=== PATIENT | male | born 1970 | race Caucasian/White ===

== ENCOUNTER 2017-10-30 16:27 | Inpatient (IN) | payer OTHER ==
[2017-10-30] MEDS ORDERED: ACETAMINOPHEN 325 MG TABLET (FP) PO ONE (17:06)
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
[2017-10-30] MEDS ORDERED: ACETAMINOPHEN 325 MG TABLET (FP) ONE (17:36)
[2017-10-30 17:48] LABS: BASO % 0.2 % (0-2.0); EOS % 0.1 % (0-4.5); HEMATOCRIT 34.3 % (35.4-49); HEMOGLOBIN 11.3 GM/dL (11.7-16.9); LYMPH % 13.7 % (8-40); MCH 26.5 pg (25.7-33.7); MEAN CELL VOLUME 80.4 fl (80-96); MEAN PLT VOLUME 8.3 fl (7.5-11.1); MONO % 10.4 % (3.8-10.2); NEUT % 75.6 % (42.8-82.8); PLATELET COUNT 456 K/MM3 (134-434); RBC 4.26 M/mm3 (4.00-5.60); RDW 13.6 % (11.9-15.9); WHITE BLOOD COUNT 17.9 K/mm3 (4.0-10.0)
[2017-10-30 18:07] LABS: ALBUMIN 3.7 g/dl (3.4-5.0); ANION GAP 9 (8-16); BLOOD UREA NITROGEN 23 mg/dL (7-18); CALCIUM 9.4 mg/dL (8.5-10.1); CHLORIDE 102 mmol/L (98-107); CO2 27 mmol/L (21-32); CREATININE 1.7 mg/dL (0.7-1.3); GLUCOSE,RANDOM 172 mg/dL (74-106); POTASSIUM 4.4 mmol/L (3.5-5.1); SGOT/AST 8 U/L (15-37); SGPT/ALT 15 U/L (12-78); SODIUM 138 mmol/L (136-145)
[2017-10-30 18:09] LABS: ALK PHOS 91 U/L (45-117); BILIRUBIN,TOTAL 0.4 mg/dL (0.2-1.0)
[2017-10-30] MEDS ORDERED: VANCOMYCIN 1,000 MG in DEXTROSE 5%-WATER - 250 ML IVPB ONE (18:43)
[2017-10-30] MEDS ORDERED: PIPERACILLIN/TAZOB 4.5 GM 4.5 GM in DEXTROSE 5%-WATER 100 ML IVPB ONE (18:43)
[2017-10-30] MEDS ORDERED: SODIUM CHLORIDE 0.9% 1000 ML INFUS.BAG IV ONE (18:44)
[2017-10-30] MEDS ORDERED: PIPERACILLIN/TAZOB 4.5 GM 4.5 GM/100 ML BAG IVPB ONE (19:04)
[2017-10-30] MEDS ORDERED: VANCOMYCIN 1 GRAM (PRE-DOCKED) 1,000 MG/250 ML BAG IVPB ONE (19:04)
[2017-10-30 19:52] LABS: URINE APPEARANCE SLCLOUDY; URINE BILIRUBIN NEGATIVE (<2.0 mg/dL); URINE COLOR DKYELLOW; URINE GLUCOSE (UA) 1+ (NEGATIVE); URINE KETONE TRACE (NEGATIVE); URINE LEUK ESTERASE NEGATIVE (NEGATIVE); URINE NITRITE NEGATIVE (NEGATIVE)
[2017-10-30 19:54] LABS: URINE PROTEIN 1+ (NEGATIVE)
[2017-10-30 19:57] LABS: EPI CELLS RARE /HPF (FEW); GRANULAR CASTS 6 /lpf; URINE HYALINE CAST 2 /lpf; URINE MUCUS FEW
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
[2017-10-31] MEDS: SODIUM CHLORIDE 1,000 ML IV SCH ×4 (00:45→18:03)
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
[2017-10-31] MEDS: PIPERACILLIN/TAZOB 3.375 GM 3.375 GM in DEXTROSE 5%-WATER - 50 ML IVPB SCH ×3 (02:46→18:04)
[2017-10-31] MEDS ORDERED: PIPERACILLIN/TAZOB 3.375 GM 3.375 GM/50 ML BAG IVPB ONE (02:47)
[2017-10-31] MEDS ORDERED: ACETAMINOPHEN 325 MG TABLET (FP) ONE (02:49)
[2017-10-31] MEDS: ACETAMINOPHEN 325 MG TABLET (FP) PO PRN ×3 (02:54→20:55)
[2017-10-31] MEDS: HEPARIN NA (PORCINE) 5,000 UNITS/ML 1ML VIAL SQ SCH ×3 (07:22→22:19)
[2017-10-31 07:42] VITALS: BMI 27.4
[2017-10-31 07:49] LABS: BASO % 0.3 % (0-2.0); EOS % 0.4 % (0-4.5); HEMATOCRIT 30.4 % (35.4-49); HEMOGLOBIN 10.2 GM/dL (11.7-16.9); LYMPH % 21.1 % (8-40); MCH 26.7 pg (25.7-33.7); MCHC 33.6 g/dl (32.0-35.9); MEAN CELL VOLUME 79.3 fl (80-96); MEAN PLT VOLUME 7.7 fl (7.5-11.1); MONO % 11.9 % (3.8-10.2); NEUT % 66.3 % (42.8-82.8); PLATELET COUNT 350 K/MM3 (134-434); RBC 3.83 M/mm3 (4.00-5.60); RDW 13.2 % (11.9-15.9); WHITE BLOOD COUNT 11.8 K/mm3 (4.0-10.0)
--- NOTE | 2017-10-31 08:13 | PN ---
Physical Exam: SUBJECTIVE: Patient seen and examined. No more chills. No cough/SOB. Had some dysuria improved on AB. OBJECTIVE: Vital Signs Period Temp Pulse Resp BP Sys/Coffey Pulse Ox Last 24 Hr 98.0 F-99.0 F 77-113 18-20 131-149/71-79 97-99 GENERAL: The patient is awake, alert, and fully oriented, in no acute distress. LUNGS: Breath sounds equal, clear to auscultation bilaterally HEART: Regular rate and rhythm, S1, S2 ABDOMEN: Soft, nontender, nondistended, normoactive bowel sounds EXTREMITIES: R foot wound recently dressed, clean and dry. NEUROLOGICAL: AAOx 3, Able to move all limbs, normal speech Laboratory Results - last 24 hr 10/30/17 10/30/17 10/30/17 17:15 17:25 17:25 WBC 17.9 H RBC 4.26 Hgb 11.3 L Hct 34.3 L MCV 80.4 MCH 26.5 MCHC 33.0 RDW 13.6 Plt Count 456 H D MPV 8.3 Absolute Neuts (auto) 13.5 Neutrophils % 75.6 D Lymphocytes % 13.7 D Monocytes % 10.4 H Eosinophils % 0.1 D Basophils % 0.2 Nucleated RBC % 0 ESR Sodium 138 Potassium 4.4 Chloride 102 Carbon Dioxide 27 Anion Gap 9 BUN 23 H Creatinine 1.7 H Creat Clearance w eGFR 43.61 POC Glucometer Random Glucose 172 H Lactic Acid Calcium 9.4 Total Bilirubin 0.4 AST 8 L ALT 15 Alkaline Phosphatase 91 C-Reactive Protein Total Protein 8.0 Albumin 3.7 Urine Color Dkyellow Urine Appearance Slcloudy Urine pH 5.0 Ur Specific White 1.019 Urine Protein 1+ H Urine Glucose (UA) 1+ H Urine Ketones Trace H Urine Blood Negative Urine Nitrite Negative Urine Bilirubin Negative Urine Urobilinogen 2.0 Ur Leukocyte Esterase Negative Urine WBC (Auto) 3 Urine RBC (Auto) 4 Ur Epithelial Cells Rare Hyaline Casts 2 Granular Casts 6 Urine Mucus Few 10/30/17 10/30/17 10/30/17 17:25 17:25 21:15 WBC RBC Hgb Hct MCV MCH MCHC RDW Plt Count MPV Absolute Neuts (auto) Neutrophils % Lymphocytes % Monocytes % Eosinophils % Basophils % Nucleated RBC % ESR Sodium Potassium Chloride Carbon Dioxide Anion Gap BUN Creatinine Creat Clearance w eGFR POC Glucometer Random Glucose Lactic Acid 2.0 1.4 Calcium Total Bilirubin AST ALT Alkaline Phosphatase C-Reactive Protein 14.3 H Total Protein Albumin Urine Color Urine Appearance Urine pH Ur Specific White Urine Protein Urine Glucose (UA) Urine Ketones Urine Blood Urine Nitrite Urine Bilirubin Urine Urobilinogen Ur Leukocyte Esterase Urine WBC (Auto) Urine RBC (Auto) Ur Epithelial Cells Hyaline Casts Granular Casts Urine Mucus 10/31/17 10/31/17 10/31/17 03:00 03:17 07:10 WBC 11.8 H RBC 3.83 L Hgb 10.2 L Hct 30.4 L MCV 79.3 L MCH 26.7 MCHC 33.6 RDW 13.2 Plt Count 350 D MPV 7.7 Absolute Neuts (auto) 7.8 Neutrophils % 66.3 Lymphocytes % 21.1 D Monocytes % 11.9 H Eosinophils % 0.4 D Basophils % 0.3 Nucleated RBC % 0 ESR 82 H Sodium Potassium Chloride Carbon Dioxide Anion Gap BUN Creatinine Creat Clearance w eGFR POC Glucometer [phone] Random Glucose Lactic Acid Calcium Total Bilirubin AST ALT Alkaline Phosphatase C-Reactive Protein Total Protein Albumin Urine Color Urine Appearance Urine pH Ur Specific White Urine Protein Urine Glucose (UA) Urine Ketones Urine Blood Urine Nitrite Urine Bilirubin Urine Urobilinogen Ur Leukocyte Esterase Urine WBC (Auto) Urine RBC (Auto) Ur Epithelial Cells Hyaline Casts Granular Casts Urine Mucus Active Medications Generic Name Dose Route Start Last Admin Trade Name Freq PRN Reason Stop Dose Admin Acetaminophen 650 mg 10/31/17 00:07 10/31/17 02:54 Tylenol - PO 650 mg Q4H PRN Administration MODERATE PAIN Aspirin 81 mg 10/31/17 10:00 Asa - PO DAILY ARY Atorvastatin Calcium 10 mg 10/31/17 22:00 Lipitor - PO HS ARY Heparin Sodium (Porcine) 5,000 unit 10/31/17 06:00 10/31/17 07:22 Heparin - SQ 5,000 unit TID ARY Administration Sodium Chloride 1,000 mls @ 125 mls/hr 10/31/17 00:15 10/31/17 07:22 Normal Saline - IV 125 mls/hr ASDIR ARY Administration Piperacillin Sod/Tazobactam 50 mls @ 100 mls/hr 10/31/17 02:45 10/31/17 02:46 Sod 3.375 gm/ Dextrose IVPB 10/31/17 10:29 100 mls/hr Q8H-IV ARY Administration Protocol Piperacillin Sod/Tazobactam 50 mls @ 100 mls/hr 10/31/17 18:00 Sod 3.375 gm/ Dextrose IVPB Q8H-IV ARY Protocol Insulin Aspart 1 vial 10/31/17 07:20 Novolog Vial Sliding Scale - SQ ACHS ARY Protocol Lisinopril 10 mg 10/31/17 10:00 Prinivil PO DAILY ARY Senna 1 tab 10/31/17 22:00 Senna - PO HS ARY Microbiology 10/30/17 17:25 Blood - Peripheral Venous Blood Culture - Preliminary NO GROWTH OBTAINED AFTER 48 HOURS, INCUBATION TO CONTINUE FOR 3 DAYS. 10/30/17 17:15 Blood - Peripheral Venous Blood Culture - Preliminary NO GROWTH OBTAINED AFTER 48 HOURS, INCUBATION TO CONTINUE FOR 3 DAYS. 10/30/17 17:15 Urine - Urine Clean Catch Urine Culture - Final NO GROWTH OBTAINED Abd US 10/31/17: R kidney 11.8, L kidney 12.5 and appear unremarkable ASSESSMENT/PLAN: The patient is a 47 year old male with a PMH of DMII, HTN, hyperlipidemia, diabetic wound in the right foot for the past 3 months, that presented to Emergency Room after was found to have fever and chills in wound care clinic earlier today. He is admitted for sepsis due to diabetic wound in his right foot. Sepsis due to diabetic wound in right foot: -Fevers resolved, White count trending down, lactic acid resolved - Pt presented with tachycardia 100, chills, WBC 17.9, associated with open diabetic wound -sepsis protocol started in ED -Cont Vanco/Zosyn(10/30/17) day 2 -ID consulted- Dr Benavidez apprec rec -Wound culture -pending -blood cutures -negative -continue NS @125 cc/hr- pending adequae PO ingestion -Tylenol 650 mg Q4h for pain control and fever -will f/u Dr Torres recommendations- for debridement and likely bone biopsy tomorrow -wound care -CRP-14.3 and ESR -elevated 82 -MRI will not be necessary to R/O Osteomyelitis with bone biopsy ANDREINA: -Likely due to dehydration, poor oral intake -he was told in the past that his kidney function was affected but it resolved and 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 -today Cr 1.7, not known baseline, BUN 23 -US kidney ordered- N kidneys -avoid nephrotoxic substance -Nephro consulted - Cont iv fluids -FENa-1.8% suggestive of intrinsic renal disease (may not be accurate as pt received hydration prior ) -Monitor Anemia: - Hgb trending down -denies bleeding, melena -Presented with Hgb 11.3, HCT 34.3, microcytic anemia -iron studies ordered-High ferritin, low TIBC-could indicate ACD -FOBT --ve HTN: -continue Lisinopril 10 mg daily -controlled DMII: -diagnosed 20 years ago, last HgA1C 10.5 in the beginning of October -at home on Novolog 8 units before meals and Lantus 28 units HS, Metformin and Trulicity -for now we will only continue ISS, consider resuming home insulin when he improves -diabetic diet -Registered Mail Clerk consultation -BGM ACHS DVT PPX: -Heparin sq -scds F/E/N: NS/no changes/Diabetic Dispo: Med surg Visit type - Emergency Visit Emergency Visit: Yes ED Registration Date: 10/30/17 Care time: The patient presented to the Emergency Department on the above date and was hospitalized for further evaluation of their emergent condition. - New Patient This patient is new to me today: Yes Date on this admission: 10/31/17 - Critical Care Critical Care patient: No - Discharge Referral Referred to [facility] No
[2017-10-31 09:23] LABS: ALBUMIN 2.9 g/dl (3.4-5.0); ALK PHOS 80 U/L (45-117); BILIRUBIN,TOTAL 0.4 mg/dL (0.2-1.0); BLOOD UREA NITROGEN 16 mg/dL (7-18); CALCIUM 8.8 mg/dL (8.5-10.1); CHLORIDE 104 mmol/L (98-107); CREATININE 1.1 mg/dL (0.7-1.3); GLUCOSE,RANDOM 147 mg/dL (74-106); MAGNESIUM 1.7 mg/dL (1.8-2.4); PHOSPHOROUS 3.4 mg/dL (2.5-4.9); POTASSIUM 4.7 mmol/L (3.5-5.1); SGOT/AST 12 U/L (15-37); SGPT/ALT 13 U/L (12-78); SODIUM 138 mmol/L (136-145); TOT PROT 6.7 g/dl (6.4-8.2)
[2017-10-31 09:41] LABS: ANION GAP 8 (8-16); CO2 26 mmol/L (21-32)
[2017-10-31] MEDS ORDERED: PIPERACILLIN/TAZOBACTAM 3.375 GM VIAL IVPB ONE ×2 (09:57→17:55)
[2017-10-31] MEDS ORDERED: DEXTROSE 5%-WATER - 50 ML IVPB ONE ×2 (09:57→17:55)
[2017-10-31] MEDS ORDERED: ASPIRIN 81 MG CHEWABLE TABLETS PO SCH (10:00)
[2017-10-31] MEDS: LISINOPRIL 10 MG TABLET (FP) PO SCH (10:06)
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
[2017-10-31] MEDS ORDERED: INSULIN SLIDING SCALE (NOVOLOG) 1 VIAL SQ SCH (11:00)
[2017-10-31] MEDS ORDERED: VANCOMYCIN 1,000 MG in DEXTROSE 5%-WATER - 250 ML IVPB SCH (11:00)
--- NOTE | 2017-10-31 11:14 | CONSULT ---
Consultation: REQUESTING PROVIDER: Dr. Camilla Chan CONSULT REQUEST: We have been asked to medically evaluate this patient for ANDREINA. HISTORY OF PRESENT ILLNESS: This is a 47 year old male with a past medical history of DM, HTN, HLD, diabetic wound ulcers, who presents with chills and multiple foot ulcers found to be septic from diabetic wound infection. We were called to evaluate and creatinine on admission of 1.7. As per patient two years ago her was tole he had kidney disease from his primary in the [place], he was given lisinopril, no further work up done. He state that for the past week he has been taking Ibuprofen and oxycodone for his pain from wounds. Admits to frothy urine for years. He denies dysuria, polyuria, hematuria. PMH: DM, HLD, HTN PSH: none NKDA REVIEW OF SYSTEMS: CONSTITUTIONAL: Absent: fever, chills, diaphoresis, generalized weakness, malaise, loss of appetite, weight change HEENT: Absent: rhinorrhea, nasal congestion, throat pain, throat swelling, difficulty swallowing, mouth swelling, ear pain, eye pain, visual changes CARDIOVASCULAR: Absent: chest pain, syncope, palpitations, irregular heart rate, lightheadedness , peripheral edema RESPIRATORY: Absent: cough, shortness of breath, dyspnea with exertion, orthopnea, wheezing, stridor, hemoptysis GASTROINTESTINAL: Absent: abdominal pain, abdominal distension, nausea, vomiting, diarrhea, constipation, melena, hematochezia GENITOURINARY: Absent: dysuria, frequency, urgency, hesitancy, hematuria, flank pain, genital pain MUSCULOSKELETAL: Absent: myalgia, arthralgia, joint swelling, back pain, neck pain SKIN: Absent: rash, itching, pallor HEMATOLOGIC/IMMUNOLOGIC: Absent: easy bleeding, easy bruising, lymphadenopathy, frequent infections ENDOCRINE: Absent: unexplained weight gain, unexplained weight loss, heat intolerance, cold intolerance NEUROLOGIC: Absent: headache, focal weakness or paresthesias, dizziness, unsteady gait, seizure, mental status changes, bladder or bowel incontinence PSYCHIATRIC: Absent: anxiety, depression, suicidal or homicidal ideation, hallucinations. PHYSICAL EXAMINATION Vital Signs - 24 hr 10/30/17 10/30/17 10/31/17 17:03 22:40 03:00 Temperature 99.0 F 99.0 F 98.0 F Pulse Rate 113 H 101 H Pulse Rate [ 77 Right] Respiratory 18 20 18 Rate Blood Pressure 144/79 131/71 Blood Pressure 149/71 [Right Arm] O2 Sat by Pulse 99 97 98 Oximetry (%) 10/31/17 09:00 Temperature 98.3 F Pulse Rate 103 H Pulse Rate [ Right] Respiratory 16 Rate Blood Pressure 155/77 Blood Pressure [Right Arm] O2 Sat by Pulse Oximetry (%) GENERAL: Awake, alert, and fully oriented, in no acute distress. LUNGS: Breath sounds equal, clear to auscultation bilaterally. No wheezes, and no crackles. No accessory muscle use. HEART: Regular rate and rhythm, normal S1 and S2 without murmur, rub or gallop. ABDOMEN: Soft, nontender, not distended, normoactive bowel sounds, no guarding, no rebound, no masses. No hepatomegaly or splenomegaly. MUSCULOSKELETAL: Normal range of motion at all joints. No bony deformities or tenderness. No CVA tenderness. UPPER EXTREMITIES: 2+ pulses, warm, well-perfused. No cyanosis. No clubbing. Cap refill <2 seconds. No peripheral edema. LOWER EXTREMITIES: 2+ pulses, warm, well-perfused. No calf tenderness.wound in bandages, non draining , no edema NEUROLOGICAL: Cranial nerves II-XII intact. Normal speech. Normal gait. PSYCHIATRIC: Cooperative. Good eye contact. Appropriate mood and affect. Laboratory Results - last 24 hr 10/30/17 10/30/17 10/30/17 17:15 17:25 17:25 WBC 17.9 H RBC 4.26 Hgb 11.3 L Hct 34.3 L MCV 80.4 MCH 26.5 MCHC 33.0 RDW 13.6 Plt Count 456 H D MPV 8.3 Absolute Neuts (auto) 13.5 Neutrophils % 75.6 D Lymphocytes % 13.7 D Monocytes % 10.4 H Eosinophils % 0.1 D Basophils % 0.2 Nucleated RBC % 0 ESR Sodium 138 Potassium 4.4 Chloride 102 Carbon Dioxide 27 Anion Gap 9 BUN 23 H Creatinine 1.7 H Creat Clearance w eGFR 43.61 POC Glucometer Random Glucose 172 H Lactic Acid Calcium 9.4 Phosphorus Magnesium Ferritin Total Bilirubin 0.4 AST 8 L ALT 15 Alkaline Phosphatase 91 C-Reactive Protein Total Protein 8.0 Albumin 3.7 Urine Color Dkyellow Urine Appearance Slcloudy Urine pH 5.0 Ur Specific [place] 1.019 Urine Protein 1+ H Urine Glucose (UA) 1+ H Urine Ketones Trace H Urine Blood Negative Urine Nitrite Negative Urine Bilirubin Negative Urine Urobilinogen 2.0 Ur Leukocyte Esterase Negative Urine WBC (Auto) 3 Urine RBC (Auto) 4 Ur Epithelial Cells Rare Hyaline Casts 2 Granular Casts 6 Urine Mucus Few Stool Occult Blood 10/30/17 10/30/17 10/30/17 17:25 17:25 21:15 WBC RBC Hgb Hct MCV MCH MCHC RDW Plt Count MPV Absolute Neuts (auto) Neutrophils % Lymphocytes % Monocytes % Eosinophils % Basophils % Nucleated RBC % ESR Sodium Potassium Chloride Carbon Dioxide Anion Gap BUN Creatinine Creat Clearance w eGFR POC Glucometer Random Glucose Lactic Acid 2.0 1.4 Calcium Phosphorus Magnesium Ferritin Total Bilirubin AST ALT Alkaline Phosphatase C-Reactive Protein 14.3 H Total Protein Albumin Urine Color Urine Appearance Urine pH Ur Specific [place] Urine Protein Urine Glucose (UA) Urine Ketones Urine Blood Urine Nitrite Urine Bilirubin Urine Urobilinogen Ur Leukocyte Esterase Urine WBC (Auto) Urine RBC (Auto) Ur Epithelial Cells Hyaline Casts Granular Casts Urine Mucus Stool Occult Blood 10/31/17 10/31/17 10/31/17 03:00 03:17 07:10 WBC 11.8 H RBC 3.83 L Hgb 10.2 L Hct 30.4 L MCV 79.3 L MCH 26.7 MCHC 33.6 RDW 13.2 Plt Count 350 D MPV 7.7 Absolute Neuts (auto) 7.8 Neutrophils % 66.3 Lymphocytes % 21.1 D Monocytes % 11.9 H Eosinophils % 0.4 D Basophils % 0.3 Nucleated RBC % 0 ESR 82 H Sodium Potassium Chloride Carbon Dioxide Anion Gap BUN Creatinine Creat Clearance w eGFR POC Glucometer [phone] Random Glucose Lactic Acid Calcium Phosphorus Magnesium Ferritin Total Bilirubin AST ALT Alkaline Phosphatase C-Reactive Protein Total Protein Albumin Urine Color Urine Appearance Urine pH Ur Specific [place] Urine Protein Urine Glucose (UA) Urine Ketones Urine Blood Urine Nitrite Urine Bilirubin Urine Urobilinogen Ur Leukocyte Esterase Urine WBC (Auto) Urine RBC (Auto) Ur Epithelial Cells Hyaline Casts Granular Casts Urine Mucus Stool Occult Blood 10/31/17 10/31/17 10/31/17 07:10 07:10 09:50 WBC RBC Hgb Hct MCV MCH MCHC RDW Plt Count MPV Absolute Neuts (auto) Neutrophils % Lymphocytes % Monocytes % Eosinophils % Basophils % Nucleated RBC % ESR Sodium 138 Potassium 4.7 Chloride 104 Carbon Dioxide 26 Anion Gap 8 BUN 16 Creatinine 1.1 Creat Clearance w eGFR > 60 POC Glucometer Random Glucose 147 H Lactic Acid Calcium 8.8 Phosphorus 3.4 Magnesium 1.7 L Ferritin 322.2 H Total Bilirubin 0.4 AST 12 L D ALT 13 Alkaline Phosphatase 80 D C-Reactive Protein Total Protein 6.7 Albumin 2.9 L Urine Color Urine Appearance Urine pH Ur Specific [place] Urine Protein Urine Glucose (UA) Urine Ketones Urine Blood Urine Nitrite Urine Bilirubin Urine Urobilinogen Ur Leukocyte Esterase Urine WBC (Auto) Urine RBC (Auto) Ur Epithelial Cells Hyaline Casts Granular Casts Urine Mucus Stool Occult Blood Negative Active Medications Generic Name Dose Route Start Last Admin Trade Name Freq PRN Reason Stop Dose Admin Acetaminophen 650 mg 10/31/17 00:07 10/31/17 10:16 Tylenol - PO 650 mg Q4H PRN Administration MODERATE PAIN Aspirin 81 mg 10/31/17 10:00 10/31/17 10:05 Asa - PO 81 mg DAILY [facility] Administration Atorvastatin Calcium 10 mg 10/31/17 22:00 Lipitor - PO [facility] Heparin Sodium (Porcine) 5,000 unit 10/31/17 06:00 10/31/17 07:22 Heparin - SQ 5,000 unit TID ARY Administration Sodium Chloride 1,000 mls @ 125 mls/hr 10/31/17 00:15 10/31/17 07:22 Normal Saline - IV 125 mls/hr ASDIR ARY Administration Piperacillin Sod/Tazobactam 50 mls @ 100 mls/hr 10/31/17 18:00 Sod 3.375 gm/ Dextrose IVPB Q8H-IV [facility] Protocol Vancomycin HCl 1,000 mg/ 250 mls @ 200 mls/hr 10/31/17 11:00 Dextrose IVPB Q24H [facility] Protocol Insulin Aspart 1 vial 10/31/17 07:20 Novolog Vial Sliding Scale - SQ ACHS [facility] Protocol Lisinopril 10 mg 10/31/17 10:00 10/31/17 10:06 Prinivil PO 10 mg DAILY ARY Administration Magnesium Sulfate 1 gm 10/31/17 10:23 Magnesium Sulfate IVPB 10/31/17 10:24 ONCE ONE Senna 1 tab 10/31/17 22:00 Senna - PO [facility] ASSESSMENT/PLAN: This is a 47 year old male with a history of diabetes, htn, hld, diabetic wound ulcers, found to be septic from wounds. Evaluate for CKD, creatinine 1.7 on admission, today 1.1 after IVF. #ANDREINA on CKD #Sepsis sec to wound infection #Anemia #Hypomagnesemia #hematuria -ANDREINA most likely in the setting of sepsis. Creatinine has stabilized after IVF. Can d/c once taking po -will order urine studies, electrolytes, creatinine, protien, 1+ protein in urine; will get ratio -few rbcs in urine would get repeat UA before discharge determine need for further workup -iron studies pending -replace mag -for debridement tomorrow; cont IV antibiotics Dispo: We will continue to follow the patient. Thank you for this consultative opportunity. Visit type - Emergency Visit Emergency Visit: No - New Patient This patient is new to me today: Yes Date on this admission: 10/31/17 - Critical Care Critical Care patient: No
[2017-10-31] MEDS ORDERED: VANCOMYCIN 1 GM PREMIX - 1 GM/200 ML BAG IVPB ONE (12:30)
[2017-10-31] MEDS ORDERED: MAGNESIUM 1GM/D5W 100ML - 100 ML IVPB IVPB ONE (12:30)
--- NOTE | 2017-10-31 13:08 | EKG ---
Test Reason : Blood Pressure : / mmHG Vent. Rate : 095 BPM Atrial Rate : 095 BPM P-R Int : 166 ms QRS Dur : 076 ms QT Int : 346 ms P-R-T Axes : 048 041 030 degrees QTc Int : 434 ms NORMAL SINUS RHYTHM NORMAL ECG NO PREVIOUS ECGS AVAILABLE Confirmed by SYLVIA POOLE MD ([id number]) on 10/31/2017 1:07:58 PM Referred By: Confirmed By:SYLVIA POOLE MD
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
--- NOTE | 2017-10-31 13:18 | PN ---
Teaching Attending Note Name of Resident: Zuleima Everett (Nephrology) ATTENDING PHYSICIAN STATEMENT I saw and evaluated the patient. I reviewed the resident's note and discussed the case with the resident. I agree with the resident's findings and plan as documented. SUBJECTIVE: This is a 47 y/o gentleman with PMH DM, HTN and dyslipidemia presented to the ER with a infected foot ulcer with ANDREINA with Cr of 1.7. Pt reports poor oral intake along with chills at home. Was on ACEi for hypertension which he was taking. He was also taking periodic NSIADs for pain control. No N/V/D. No chest pain or sob. + Fever and chills. No flank pain, hematuira, dark urine, ALEJANDRE , confusion or lethargy. PMHx: as above Allergies: NDKA Family Hx: NC social Hx: no T/A/D ROS: as per HPI Home Medications Medication Instructions Recorded Aspirin [ASA -] 81 mg PO DAILY 09/04/17 Lisinopril 10 mg PO DAILY 09/04/17 Metformin HCl [Glucophage] 1,000 mg PO BID 09/04/17 Simvastatin 10 mg PO HS 09/04/17 Dulaglutide [Trulicity] WEEKLY 10/30/17 Insulin Aspart [Novolog] 8 unit SQ TID 10/31/17 Insulin Glargine,Hum.rec.anlog 28 unit SQ HS 10/31/17 [Lantus] OBJECTIVE: Vital Signs Temperature 98.3 F 10/31/17 09:00 Pulse Rate 103 H 10/31/17 09:00 Respiratory Rate 16 10/31/17 09:00 Blood Pressure 155/77 10/31/17 09:00 O2 Sat by Pulse Oximetry (%) 98 10/31/17 03:00 Intake & Output 10/28/17 10/29/17 10/30/17 10/31/17 23:59 23:59 23:59 23:59 Weight 77.111 kg NAD awake and alert MMM, no JVD, Neck supple RRR, No M/R CTA soft NT/ND No LE edema CBC, BMP 10/31/17 07:10 10/31/17 07:10 Current Medications Acetaminophen (Tylenol -) 650 mg PO Q4H PRN PRN Reason: MODERATE PAIN Last Admin: 10/31/17 10:16 Dose: 650 mg Aspirin (Asa -) 81 mg PO DAILY ARY Last Admin: 10/31/17 10:05 Dose: 81 mg Atorvastatin Calcium (Lipitor -) 10 mg PO HS ARY Heparin Sodium (Porcine) (Heparin -) 5,000 unit SQ TID ARY Last Admin: 10/31/17 07:22 Dose: 5,000 unit Piperacillin Sod/Tazobactam (Sod 3.375 gm/ Dextrose) 50 mls @ 100 mls/hr IVPB Q8H-IV ARY; Protocol Vancomycin HCl 1,000 mg/ (Dextrose) 250 mls @ 200 mls/hr IVPB Q24H ARY; Protocol Sodium Chloride (Normal Saline -) 1,000 mls @ 100 mls/hr IV ASDIR ARY Vancomycin HCl (Vancomycin 1 Gm Premix -) 1 gm in 200 mls @ 133.333 mls/hr IVPB ONCE ONE Stop: 10/31/17 13:59 Insulin Aspart (Novolog Vial Sliding Scale -) 1 vial SQ ACHS ARY; Protocol Lisinopril (Prinivil) 10 mg PO DAILY ARY Last Admin: 10/31/17 10:06 Dose: 10 mg Senna (Senna -) 1 tab PO HS [facility] ASSESSMENT AND PLAN: 47 y/o gentleman with PMH DM, HTN and dyslipidemia presented to the ER with a infected foot ulcer with ANDREINA with Cr of 1.7. #ANDREINA secondary to renal hypoprofusion in setting of infection/ACEi/NSAIDs #LE wound #IDDM #Anemia Renal function now improved to likely baseline agree with resuming ACEi would avoid any NSAIDs at this time continue IVF hydration and maintain map > 65 continue Abx as per ID repeat UA later in the admission or as outpatient to monitor hematuria Thank you Will follow Pierre Ford DO
[2017-10-31] MEDS: INSULIN SLIDING SCALE (NOVOLOG) 1 VIAL SQ SCH ×3 (13:34→22:20)
--- NOTE | 2017-10-31 14:47 | PN ---
Progress Note (short form) - Note Progress Note: ID Consult dictated Infected foot wound Probable osteomyelitis Possible sepsis secondary to foot infection Leukocytosis Diabetes mellitus Await c/s For debridement Continue empiric vancomycin/ zosyn
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
--- NOTE | 2017-10-31 16:40 | PN ---
Physical Exam: SUBJECTIVE: Patient seen and examined. No SOB, no fevers overnight. Had dysuria , now relieved. Wound recently dressed by surgical team. For debridement in OR tomorrow OBJECTIVE: Vital Signs Period Temp Pulse Resp BP Sys/Coffey Pulse Ox Last 24 Hr 98.0 F-99.0 F 77-113 16-20 131-155/71-79 97-99 Vital Signs Temp 98.4 F 10/31/17 14:00 Pulse 107 H 10/31/17 14:00 Resp 20 10/31/17 14:00 BP 140/72 10/31/17 14:00 Pulse Ox 97 10/31/17 09:00 Intake & Output 10/30/17 10/31/17 10/31/17 23:59 11:59 23:59 Intake Total 1550 Balance 1550 Weight 77.111 kg 77.111 kg Intake: IV 1000 Normal Saline - 1,000 ml 1000 @ 100 mls/hr IV ASDIR ARY Rx#:[id number] IVPB 300 Oral 250 Other: Voiding Method Toilet Toilet Toilet # Unmeasured Voids Void 2 Bowel Movement Yes # Bowel Movements 1 Height 1.68 m 1.68 m Body Mass Index (BMI) 27.4 27.4 Weight Measurement Method Est/Stated by Patient Intake & Output 10/28/17 10/29/17 10/30/17 10/31/17 23:59 23:59 23:59 23:59 Intake Total 1550 Balance 1550 Weight 77.111 kg 77.111 kg GENERAL: The patient is awake, alert, and fully oriented, in no acute painful distress. HEAD: Normal with no signs of trauma. EYES: PERRL, extraocular movements intact, sclera anicteric, conjunctiva clear. No ptosis. ENT: Ears normal, nares patent, oropharynx clear without exudates, moist mucous membranes. NECK: Trachea midline, full range of motion, supple. LUNGS: Breath sounds equal, clear to auscultation bilaterally, no wheezes, no crackles, no accessory muscle use. HEART: Regular rate and rhythm, S1, S2 without murmur, rub or gallop. ABDOMEN: Soft, nontender, nondistended, normoactive bowel sounds, no guarding, no rebound, no hepatosplenomegaly, no masses. EXTREMITIES: 2+ pulses, warm, well-perfused, no edema. NEUROLOGICAL: Cranial nerves II through XII grossly intact. Normal speech, gait not observed. PSYCH: Normal mood, normal affect. SKIN: Warm, dry, normal turgor, no rashes or lesions noted Laboratory Results - last 24 hr 10/30/17 10/30/17 10/30/17 17:15 17:25 17:25 WBC 17.9 H RBC 4.26 Hgb 11.3 L Hct 34.3 L MCV 80.4 MCH 26.5 MCHC 33.0 RDW 13.6 Plt Count 456 H D MPV 8.3 Absolute Neuts (auto) 13.5 Neutrophils % 75.6 D Lymphocytes % 13.7 D Monocytes % 10.4 H Eosinophils % 0.1 D Basophils % 0.2 Nucleated RBC % 0 ESR Sodium 138 Potassium 4.4 Chloride 102 Carbon Dioxide 27 Anion Gap 9 BUN 23 H Creatinine 1.7 H Creat Clearance w eGFR 43.61 POC Glucometer Random Glucose 172 H Lactic Acid Calcium 9.4 Phosphorus Magnesium Ferritin Total Bilirubin 0.4 AST 8 L ALT 15 Alkaline Phosphatase 91 C-Reactive Protein Total Protein 8.0 Albumin 3.7 Urine Color Dkyellow Urine Appearance Slcloudy Urine pH 5.0 Ur Specific Botkins 1.019 Urine Protein 1+ H Urine Glucose (UA) 1+ H Urine Ketones Trace H Urine Blood Negative Urine Nitrite Negative Urine Bilirubin Negative Urine Urobilinogen 2.0 Ur Leukocyte Esterase Negative Urine WBC (Auto) 3 Urine RBC (Auto) 4 Ur Epithelial Cells Rare Hyaline Casts 2 Granular Casts 6 Urine Mucus Few U Random Total Protein Ur Random Sodium Ur Random Potassium Ur Random Chloride Urine Creatinine Stool Occult Blood 10/30/17 10/30/17 10/30/17 17:25 17:25 21:15 WBC RBC Hgb Hct MCV MCH MCHC RDW Plt Count MPV Absolute Neuts (auto) Neutrophils % Lymphocytes % Monocytes % Eosinophils % Basophils % Nucleated RBC % ESR Sodium Potassium Chloride Carbon Dioxide Anion Gap BUN Creatinine Creat Clearance w eGFR POC Glucometer Random Glucose Lactic Acid 2.0 1.4 Calcium Phosphorus Magnesium Ferritin Total Bilirubin AST ALT Alkaline Phosphatase C-Reactive Protein 14.3 H Total Protein Albumin Urine Color Urine Appearance Urine pH Ur Specific Botkins Urine Protein Urine Glucose (UA) Urine Ketones Urine Blood Urine Nitrite Urine Bilirubin Urine Urobilinogen Ur Leukocyte Esterase Urine WBC (Auto) Urine RBC (Auto) Ur Epithelial Cells Hyaline Casts Granular Casts Urine Mucus U Random Total Protein Ur Random Sodium Ur Random Potassium Ur Random Chloride Urine Creatinine Stool Occult Blood 10/31/17 10/31/17 10/31/17 03:00 03:17 07:10 WBC 11.8 H RBC 3.83 L Hgb 10.2 L Hct 30.4 L MCV 79.3 L MCH 26.7 MCHC 33.6 RDW 13.2 Plt Count 350 D MPV 7.7 Absolute Neuts (auto) 7.8 Neutrophils % 66.3 Lymphocytes % 21.1 D Monocytes % 11.9 H Eosinophils % 0.4 D Basophils % 0.3 Nucleated RBC % 0 ESR 82 H Sodium Potassium Chloride Carbon Dioxide Anion Gap BUN Creatinine Creat Clearance w eGFR POC Glucometer [phone] Random Glucose Lactic Acid Calcium Phosphorus Magnesium Ferritin Total Bilirubin AST ALT Alkaline Phosphatase C-Reactive Protein Total Protein Albumin Urine Color Urine Appearance Urine pH Ur Specific Botkins Urine Protein Urine Glucose (UA) Urine Ketones Urine Blood Urine Nitrite Urine Bilirubin Urine Urobilinogen Ur Leukocyte Esterase Urine WBC (Auto) Urine RBC (Auto) Ur Epithelial Cells Hyaline Casts Granular Casts Urine Mucus U Random Total Protein Ur Random Sodium Ur Random Potassium Ur Random Chloride Urine Creatinine Stool Occult Blood 10/31/17 10/31/17 10/31/17 07:10 07:10 09:50 WBC RBC Hgb Hct MCV MCH MCHC RDW Plt Count MPV Absolute Neuts (auto) Neutrophils % Lymphocytes % Monocytes % Eosinophils % Basophils % Nucleated RBC % ESR Sodium 138 Potassium 4.7 Chloride 104 Carbon Dioxide 26 Anion Gap 8 BUN 16 Creatinine 1.1 Creat Clearance w eGFR > 60 POC Glucometer Random Glucose 147 H Lactic Acid Calcium 8.8 Phosphorus 3.4 Magnesium 1.7 L Ferritin 322.2 H Total Bilirubin 0.4 AST 12 L D ALT 13 Alkaline Phosphatase 80 D C-Reactive Protein Total Protein 6.7 Albumin 2.9 L Urine Color Urine Appearance Urine pH Ur Specific Botkins Urine Protein Urine Glucose (UA) Urine Ketones Urine Blood Urine Nitrite Urine Bilirubin Urine Urobilinogen Ur Leukocyte Esterase Urine WBC (Auto) Urine RBC (Auto) Ur Epithelial Cells Hyaline Casts Granular Casts Urine Mucus U Random Total Protein Ur Random Sodium Ur Random Potassium Ur Random Chloride Urine Creatinine Stool Occult Blood Negative 10/31/17 10/31/17 10/31/17 10:45 10:45 10:45 WBC RBC Hgb Hct MCV MCH MCHC RDW Plt Count MPV Absolute Neuts (auto) Neutrophils % Lymphocytes % Monocytes % Eosinophils % Basophils % Nucleated RBC % ESR Sodium Potassium Chloride Carbon Dioxide Anion Gap BUN Creatinine Creat Clearance w eGFR POC Glucometer Random Glucose Lactic Acid Calcium Phosphorus Magnesium Ferritin Total Bilirubin AST ALT Alkaline Phosphatase C-Reactive Protein Total Protein Albumin Urine Color Urine Appearance Urine pH Ur Specific Botkins Urine Protein Urine Glucose (UA) Urine Ketones Urine Blood Urine Nitrite Urine Bilirubin Urine Urobilinogen Ur Leukocyte Esterase Urine WBC (Auto) Urine RBC (Auto) Ur Epithelial Cells Hyaline Casts Granular Casts Urine Mucus U Random Total Protein 29 H Ur Random Sodium 132 Ur Random Potassium 20.4 Ur Random Chloride 138 Urine Creatinine 58.0 Stool Occult Blood 10/31/17 11:19 WBC RBC Hgb Hct MCV MCH MCHC RDW Plt Count MPV Absolute Neuts (auto) Neutrophils % Lymphocytes % Monocytes % Eosinophils % Basophils % Nucleated RBC % ESR Sodium Potassium Chloride Carbon Dioxide Anion Gap BUN Creatinine Creat Clearance w eGFR POC Glucometer 267 Random Glucose Lactic Acid Calcium Phosphorus Magnesium Ferritin Total Bilirubin AST ALT Alkaline Phosphatase C-Reactive Protein Total Protein Albumin Urine Color Urine Appearance Urine pH Ur Specific Botkins Urine Protein Urine Glucose (UA) Urine Ketones Urine Blood Urine Nitrite Urine Bilirubin Urine Urobilinogen Ur Leukocyte Esterase Urine WBC (Auto) Urine RBC (Auto) Ur Epithelial Cells Hyaline Casts Granular Casts Urine Mucus U Random Total Protein Ur Random Sodium Ur Random Potassium Ur Random Chloride Urine Creatinine Stool Occult Blood Active Medications Generic Name Dose Route Start Last Admin Trade Name Freq PRN Reason Stop Dose Admin Acetaminophen 650 mg 10/31/17 00:07 10/31/17 10:16 Tylenol - PO 650 mg Q4H PRN Administration MODERATE PAIN Aspirin 81 mg 10/31/17 10:00 10/31/17 10:05 Asa - PO 81 mg DAILY ARY Administration Atorvastatin Calcium 10 mg 10/31/17 22:00 Lipitor - PO HS ARY Heparin Sodium (Porcine) 5,000 unit 10/31/17 06:00 10/31/17 15:02 Heparin - SQ 5,000 unit TID ARY Administration Sodium Chloride 1,000 mls @ 100 mls/hr 10/31/17 11:19 10/31/17 13:35 Normal Saline - IV Not Given ASDIR ARY Vancomycin HCl 1,000 mg/ 250 mls @ 166.667 mls/hr 11/01/17 01:30 Dextrose IVPB BID@0130,1330 [facility] Protocol Piperacillin Sod/Tazobactam 50 mls @ 100 mls/hr 10/31/17 18:00 Sod 3.375 gm/ Dextrose IVPB Q8H-IV [facility] Protocol Insulin Aspart 1 vial 10/31/17 07:20 10/31/17 13:34 Novolog Vial Sliding Scale - SQ Not Given ACHS [facility] Protocol Lisinopril 10 mg 10/31/17 10:00 10/31/17 10:06 Prinivil PO 10 mg DAILY [facility] Administration Senna 1 tab 10/31/17 22:00 Senna - PO [facility] Current Medications Acetaminophen (Tylenol -) 650 mg PO Q4H PRN PRN Reason: MODERATE PAIN Last Admin: 10/31/17 10:16 Dose: 650 mg Aspirin (Asa -) 81 mg PO DAILY [facility] Last Admin: 10/31/17 10:05 Dose: 81 mg Atorvastatin Calcium (Lipitor -) 10 mg PO [facility] Heparin Sodium (Porcine) (Heparin -) 5,000 unit SQ TID [facility] Last Admin: 10/31/17 15:02 Dose: 5,000 unit Sodium Chloride (Normal Saline -) 1,000 mls @ 100 mls/hr IV ASDIR [facility] Last Admin: 10/31/17 18:03 Dose: 100 mls/hr Vancomycin HCl 1,000 mg/ (Dextrose) 250 mls @ 166.667 mls/hr IVPB BID@0130, 1330 [facility]; Protocol Piperacillin Sod/Tazobactam (Sod 3.375 gm/ Dextrose) 50 mls @ 100 mls/hr IVPB Q8H-IV [facility]; Protocol Last Admin: 10/31/17 18:04 Dose: 100 mls/hr Insulin Aspart (Novolog Vial Sliding Scale -) 1 vial SQ [facility]; Protocol Last Admin: 10/31/17 18:29 Dose: 6 units Lisinopril (Prinivil) 10 mg PO DAILY [facility] Last Admin: 10/31/17 10:06 Dose: 10 mg Senna (Senna -) 1 tab PO [facility] Ambulatory Orders Aspirin [ASA -] 81 mg PO DAILY 09/04/17 Lisinopril 10 mg PO DAILY 09/04/17 Metformin HCl [Glucophage] 1,000 mg PO BID 09/04/17 Simvastatin 10 mg PO HS 09/04/17 Dulaglutide [Trulicity] WEEKLY 10/30/17 Insulin Aspart [Novolog] 8 unit SQ TID 10/31/17 Insulin Glargine,Hum.rec.anlog [Lantus] 28 unit SQ HS 10/31/17 ASSESSMENT/PLAN:
[2017-10-31] MEDS ORDERED: PIPERACILLIN/TAZOB 3.375 GM 3.375 GM in DEXTROSE 5%-WATER - 50 ML IVPB SCH (18:00)
[2017-10-31] MEDS ORDERED: SENNOSIDES 8.6MG TABLET (FP) PO SCH (22:00)
[2017-10-31] MEDS ORDERED: ATORVASTATIN CA 10 MG TABLET (FP) PO SCH (22:00)
[2017-11-01] MEDS ORDERED: PT OWN MED DRAWER 7, Y5N ONE (01:09)
[2017-11-01] MEDS ORDERED: PIPERACILLIN/TAZOBACTAM 3.375 GM VIAL IVPB ONE ×3 (01:09→17:12)
[2017-11-01] MEDS: PIPERACILLIN/TAZOB 3.375 GM 3.375 GM in DEXTROSE 5%-WATER - 50 ML IVPB SCH ×3 (01:51→17:17)
[2017-11-01] MEDS: VANCOMYCIN 1,000 MG in DEXTROSE 5%-WATER - 250 ML IVPB SCH ×2 (02:33→12:32)
[2017-11-01] MEDS: INSULIN SLIDING SCALE (NOVOLOG) 1 VIAL SQ SCH ×4 (06:00→22:00)
[2017-11-01 06:06] LABS: SERUM IRON SATURATION 8 % (15-55); TOTAL IRON BINDING CAPACITY 226 ug/dL (250-450); TRANSFERRIN 176 mg/dL (200-370); UIBC 207 ug/dL (111-343)
[2017-11-01] MEDS: SODIUM CHLORIDE 1,000 ML IV SCH ×2 (06:10→20:00)
--- NOTE | 2017-11-01 07:37 | PN ---
Physical Exam: SUBJECTIVE: Patient seen and examined. Pt had chills at night with pain at site. Debridement scheduled for 3pm today, pt to be NPO after breakfast per Dr Torres for debridement at 300pm. OBJECTIVE: Vital Signs Period Temp Pulse Resp BP Sys/Coffey Pulse Ox Last 24 Hr 98.3 F-99.5 F 99-107 16-20 140-159/68-82 97-98 Vital Signs Temp 98.8 F 11/01/17 05:29 Pulse 99 H 11/01/17 05:29 Resp 20 11/01/17 05:29 BP 144/68 11/01/17 05:29 Pulse Ox 98 10/31/17 21:00 Intake & Output 10/31/17 10/31/17 11/01/17 11:59 23:59 11:59 Intake Total 2450 Balance 2450 Weight 77.111 kg Intake: IV 1400 Normal Saline - 1,000 ml 1400 @ 100 mls/hr IV ASDIR ARY Rx#:[id number] IVPB 300 Oral 750 Other: Voiding Method Toilet Toilet # Unmeasured Voids Void 3 2 Bowel Movement No No # Bowel Movements 1 Height 1.68 m Body Mass Index (BMI) 27.4 GENERAL: The patient is awake, alert, and fully oriented, in no acute distress. LUNGS: Breath sounds equal, clear to auscultation bilaterally HEART: tachycardic, S1, S2 without murmur. ABDOMEN: Soft, nontender, nondistended, normoactive bowel sounds EXTREMITIES:R foot with dressing, clean, dry, non tender. Sensations intact NEUROLOGICAL:AAOx3. Normal tone and strength globally. CBC, BMP 11/01/17 06:30 11/01/17 06:30 Laboratory Results - last 24 hr 10/31/17 10/31/17 10/31/17 07:10 07:10 07:10 WBC 11.8 H RBC 3.83 L Hgb 10.2 L Hct 30.4 L MCV 79.3 L MCH 26.7 MCHC 33.6 RDW 13.2 Plt Count 350 D MPV 7.7 Absolute Neuts (auto) 7.8 Neutrophils % 66.3 Lymphocytes % 21.1 D Monocytes % 11.9 H Eosinophils % 0.4 D Basophils % 0.3 Nucleated RBC % 0 Sodium 138 Potassium 4.7 Chloride 104 Carbon Dioxide 26 Anion Gap 8 BUN 16 Creatinine 1.1 Creat Clearance w eGFR > 60 POC Glucometer Random Glucose 147 H Calcium 8.8 Phosphorus 3.4 Magnesium 1.7 L Iron 19 L TIBC 226 L Iron Saturation 8 L Transferrin 176 L Ferritin Total Bilirubin 0.4 AST 12 L D ALT 13 Alkaline Phosphatase 80 D Total Protein 6.7 Albumin 2.9 L U Random Total Protein Ur Random Sodium Ur Random Potassium Ur Random Chloride Urine Creatinine Stool Occult Blood 10/31/17 10/31/17 10/31/17 07:10 09:50 10:45 WBC RBC Hgb Hct MCV MCH MCHC RDW Plt Count MPV Absolute Neuts (auto) Neutrophils % Lymphocytes % Monocytes % Eosinophils % Basophils % Nucleated RBC % Sodium Potassium Chloride Carbon Dioxide Anion Gap BUN Creatinine Creat Clearance w eGFR POC Glucometer Random Glucose Calcium Phosphorus Magnesium Iron TIBC Iron Saturation Transferrin Ferritin 322.2 H Total Bilirubin AST ALT Alkaline Phosphatase Total Protein Albumin U Random Total Protein Ur Random Sodium 132 Ur Random Potassium 20.4 Ur Random Chloride 138 Urine Creatinine Stool Occult Blood Negative 10/31/17 10/31/17 10/31/17 10:45 10:45 11:19 WBC RBC Hgb Hct MCV MCH MCHC RDW Plt Count MPV Absolute Neuts (auto) Neutrophils % Lymphocytes % Monocytes % Eosinophils % Basophils % Nucleated RBC % Sodium Potassium Chloride Carbon Dioxide Anion Gap BUN Creatinine Creat Clearance w eGFR POC Glucometer 267 Random Glucose Calcium Phosphorus Magnesium Iron TIBC Iron Saturation Transferrin Ferritin Total Bilirubin AST ALT Alkaline Phosphatase Total Protein Albumin U Random Total Protein 29 H Ur Random Sodium Ur Random Potassium Ur Random Chloride Urine Creatinine 58.0 Stool Occult Blood 10/31/17 10/31/17 11/01/17 17:58 22:14 05:51 WBC RBC Hgb Hct MCV MCH MCHC RDW Plt Count MPV Absolute Neuts (auto) Neutrophils % Lymphocytes % Monocytes % Eosinophils % Basophils % Nucleated RBC % Sodium Potassium Chloride Carbon Dioxide Anion Gap BUN Creatinine Creat Clearance w eGFR POC Glucometer 292 187 190 Random Glucose Calcium Phosphorus Magnesium Iron TIBC Iron Saturation Transferrin Ferritin Total Bilirubin AST ALT Alkaline Phosphatase Total Protein Albumin U Random Total Protein Ur Random Sodium Ur Random Potassium Ur Random Chloride Urine Creatinine Stool Occult Blood Active Medications Generic Name Dose Route Start Last Admin Trade Name Freq PRN Reason Stop Dose Admin Acetaminophen 650 mg 10/31/17 00:07 10/31/17 20:55 Tylenol - PO 650 mg Q4H PRN Administration MODERATE PAIN Aspirin 81 mg 10/31/17 10:00 10/31/17 10:05 Asa - PO 81 mg DAILY ARY Administration Atorvastatin Calcium 10 mg 10/31/17 22:00 10/31/17 22:19 Lipitor - PO 10 mg HS ARY Administration Heparin Sodium (Porcine) 5,000 unit 10/31/17 06:00 10/31/17 22:19 Heparin - SQ 5,000 unit TID ARY Administration Sodium Chloride 1,000 mls @ 100 mls/hr 10/31/17 11:19 11/01/17 06:10 Normal Saline - IV 100 mls/hr ASDIR ARY Administration Vancomycin HCl 1,000 mg/ 250 mls @ 166.667 mls/hr 11/01/17 01:30 11/01/17 02: 33 Dextrose IVPB 166.667 mls/hr BID@0130,1330 ARY Administration Protocol Piperacillin Sod/Tazobactam 50 mls @ 100 mls/hr 10/31/17 18:00 11/01/17 01:51 Sod 3.375 gm/ Dextrose IVPB 100 mls/hr Q8H-IV ARY Administration Protocol Insulin Aspart 1 vial 10/31/17 07:20 11/01/17 06:00 Novolog Vial Sliding Scale - SQ 2 units ACHS ARY Administration Protocol Lisinopril 10 mg 10/31/17 10:00 10/31/17 10:06 Prinivil PO 10 mg DAILY ARY Administration Senna 1 tab 10/31/17 22:00 10/31/17 22:20 Senna - PO 1 tab HS ARY Administration Microbiology 10/30/17 17:25 Blood - Peripheral Venous Blood Culture - Preliminary NO GROWTH OBTAINED AFTER 48 HOURS, INCUBATION TO CONTINUE FOR 3 DAYS. 10/30/17 17:15 Blood - Peripheral Venous Blood Culture - Preliminary NO GROWTH OBTAINED AFTER 48 HOURS, INCUBATION TO CONTINUE FOR 3 DAYS. 10/31/17 00:05 Foot - Right Dorsum Gram Stain - Final 10/31/17 00:05 Foot - Right Dorsum Wound Culture - Preliminary Pending Organism 10/30/17 17:15 Urine - Urine Clean Catch Urine Culture - Final NO GROWTH OBTAINED Abd US 10/31/17: R kidney 11.8, L kidney 12.5 and appear unremarkable ASSESSMENT/PLAN: The patient is a 47 year old male with a PMH of DMII, HTN, hyperlipidemia, diabetic wound in the right foot for the past 3 months, that presented to Emergency Room after was found to have fever and chills in wound care clinic earlier today. He is admitted for sepsis due to diabetic wound in his right foot. Sepsis due to diabetic wound in right foot: -s/p debridement (11/01/17)- of skin, muscle and tendons -Note per sx team intraop-Chronic fibrous scar right forefoot wound with necrotic tendon. Small amount of purulent material along metatarsals. Periosteum intact and no evidence for bone infection -Fevers resolved, White count trending down, lactic acid resolved - Pt presented with tachycardia 100, chills, WBC 17.9, associated with open diabetic wound -sepsis protocol started in ED -Cont Vanco/Zosyn(10/30/17) day 3 -ID consulted- Dr Benavidez apprec rec -Wound culture -pending -blood cutures -negative -continue NS @125 cc/hr- pending adequate PO ingestion -Tylenol 650 mg Q4h for pain control and fever -will f/u Dr Torres recommendations- -wound care- per sx -CRP-14.3 and ESR -elevated 82 -vanc trough in am -Percocet and toradol for pain ANDREINA: -Likely due to dehydration, poor oral intake -he was told in the past that his kidney function was affected but it resolved and 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 -today Cr 1.7, not known baseline, BUN 23 -US kidney ordered- N kidneys -avoid nephrotoxic substance -Nephro consulted - Cont iv fluids -FENa-1.8% suggestive of intrinsic renal disease (may not be accurate as pt received hydration prior ) -Monitor Anemia: - Hgb trending down -denies bleeding, melena -Presented with Hgb 11.3, HCT 34.3, microcytic anemia -iron studies ordered-High ferritin, low TIBC-could indicate ACD -FOBT --ve HTN: -continue Lisinopril 10 mg daily -controlled DMII: -diagnosed 20 years ago, last HgA1C 10.5 in the beginning of October -at home on Novolog 8 units before meals and Lantus 28 units HS, Metformin and Trulicity -for now we will only continue ISS, consider resuming home insulin when he improves -diabetic diet -Laboratory Animal Facility Supervisor consultation -BGM ACHS -Hgb 9.5 DVT PPX: -Heparin sq -scds F/E/N: NS/no changes/Diabetic Dispo: Med surg Visit type - Emergency Visit Emergency Visit: Yes ED Registration Date: 10/30/17 Care time: The patient presented to the Emergency Department on the above date and was hospitalized for further evaluation of their emergent condition. - New Patient This patient is new to me today: No - Critical Care Critical Care patient: No - Discharge Referral Referred to [facility] Med P.C.: No
[2017-11-01 07:55] LABS: INR 1.18 (0.82-1.09); PROTHROMBIN TIME (PATIENT) 13.3 SEC (9.7-13.0)
[2017-11-01] MEDS ORDERED: KETOROLAC TROMETHAMINE 15 MG/ML VIAL IVPUSH PRN ×2 (07:56→19:59)
[2017-11-01 07:57] LABS: ACTIVATED PTT 28.2 SECONDS (25.2-36.5)
[2017-11-01 07:59] LABS: BASO % 0.4 % (0-2.0); EOS % 0.3 % (0-4.5); HEMATOCRIT 28.9 % (35.4-49); HEMOGLOBIN 9.7 GM/dL (11.7-16.9); LYMPH % 17.4 % (8-40); MCH 26.9 pg (25.7-33.7); MCHC 33.7 g/dl (32.0-35.9); MEAN CELL VOLUME 79.8 fl (80-96); MONO % 11.6 % (3.8-10.2); NEUT % 70.3 % (42.8-82.8); PLATELET COUNT 352 K/MM3 (134-434); RBC 3.62 M/mm3 (4.00-5.60); RDW 13.4 % (11.9-15.9); WHITE BLOOD COUNT 11.8 K/mm3 (4.0-10.0)
[2017-11-01 08:07] LABS: ALBUMIN 2.6 g/dl (3.4-5.0); ANION GAP 8 (8-16); BLOOD UREA NITROGEN 10 mg/dL (7-18); CALCIUM 8.6 mg/dL (8.5-10.1); CHLORIDE 104 mmol/L (98-107); CO2 27 mmol/L (21-32); GLUCOSE,RANDOM 172 mg/dL (74-106); MAGNESIUM 1.8 mg/dL (1.8-2.4); POTASSIUM 4.5 mmol/L (3.5-5.1); SODIUM 139 mmol/L (136-145)
[2017-11-01 08:11] LABS: ALK PHOS 115 U/L (45-117); BILIRUBIN,TOTAL 0.4 mg/dL (0.2-1.0); CREATININE 1.1 mg/dL (0.7-1.3); PHOSPHOROUS 2.5 mg/dL (2.5-4.9); SGOT/AST 25 U/L (15-37); SGPT/ALT 27 U/L (12-78); TOT PROT 6.2 g/dl (6.4-8.2)
[2017-11-01] MEDS ORDERED: DEXTROSE 5%-WATER - 50 ML IVPB ONE ×2 (09:24→17:12)
[2017-11-01] MEDS: LISINOPRIL 10 MG TABLET (FP) PO SCH (09:27)
[2017-11-01] MEDS ORDERED: MULTIVITAMINS (DAILY MVI) TABLET (FP) PO SCH (10:00)
[2017-11-01] MEDS ORDERED: ASCORBIC ACID 500 MG TABLET (FP) PO SCH (10:00)
[2017-11-01] MEDS: ACETAMINOPHEN 325 MG TABLET (FP) PO PRN (12:26)
--- NOTE | 2017-11-01 14:38 | PN ---
Progress Note (short form) - Note Progress Note: For operative debridement Vital Signs Period Temp Pulse Resp BP Sys/Coffey Pulse Ox Last 24 Hr 98.8 F-99.8 F 99-105 20-20 144-159/68-83 98-100 cor-rrr lungs decreased bs at bases abd soft,nt ext dressing intact CBC, BMP 11/01/17 06:30 11/01/17 06:30 Laboratory Tests 10/30/17 10/31/17 17:25 03:00 ESR 82 H C-Reactive Protein 14.3 H Microbiology 10/31/17 00:05 Foot - Right Dorsum Gram Stain - Final 10/31/17 00:05 Foot - Right Dorsum Wound Culture - Preliminary Pending Organism 10/30/17 17:15 Urine - Urine Clean Catch Urine Culture - Final NO GROWTH OBTAINED 10/30/17 17:25 Blood - Peripheral Venous Blood Culture - Preliminary NO GROWTH OBTAINED AFTER 24 HOURS, INCUBATION TO CONTINUE FOR 4 DAYS. 10/30/17 17:15 Blood - Peripheral Venous Blood Culture - Preliminary NO GROWTH OBTAINED AFTER 24 HOURS, INCUBATION TO CONTINUE FOR 4 DAYS. a/p diabetic foot infection ?osteo f/tommie cultures continue vanco/zosyn check cultures check vanco trough in am continue vanco/zosyn
[2017-11-01] MEDS ORDERED: oxyCODONE HCL 5 MG TABLET PO PRN ×2 (14:46→15:46)
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
[2017-11-01] MEDS ORDERED: ACETAMINOPHEN 325 MG TABLET (FP) PO PRN ×3 (15:22→19:59)
[2017-11-01] MEDS ORDERED: FERROUS SO4 325 MG TABLET (FP) PO SCH (17:30)
[2017-11-01] MEDS ORDERED: AMINO ACIDS/PROTEIN HYDROLYS 30 ML LIQUID.PKT PO SCH (17:30)
[2017-11-01] MEDS ORDERED: BACITRACIN 50,000 UNITS VIAL NR ONE (18:58)
--- NOTE | 2017-11-01 19:12 | OP ---
Operative Note - Note: Operative Date: 11/01/17 Pre-Operative Diagnosis: Infected wound right foot Operation: Excsional debriddemnet of skin, tendon and muscle right foot Findings: Chronic fibrous scar right forefoot wound with necrotic tendon. Small amount of purulent material along metatarsals. Periosteum intact and no evidence for bone infection Post-Operative Diagnosis: Same as Pre-op Surgeon: Fidel Torres Anesthesiologist/FISH CLEANER MACHINE TENDER: Diamond Stovall Anesthesia: General Specimens Removed: Skin, subQ and tendon Estimated Blood Loss (mls): 25 Instrument used (Debridements only): scalpel, curette
--- NOTE | 2017-11-01 20:17 | PN ---
Progress Note (short form) - Note Progress Note: Renal follow up for ANDREINA Pt seen and examined at the bedside no acute complaints for debridement of LE today making urine, no sob, chest pain Vital Signs Temperature 99.0 F 11/01/17 15:22 Pulse Rate 98 H 11/01/17 15:22 Respiratory Rate 20 11/01/17 15:22 Blood Pressure 148/76 11/01/17 15:22 O2 Sat by Pulse Oximetry (%) 100 11/01/17 09:00 Intake & Output 10/29/17 10/30/17 10/31/17 11/01/17 23:59 23:59 23:59 23:59 Intake Total 2450 2300 Balance 2450 2300 Weight 77.111 kg 77.111 kg NAD awake and alert RRR CTA soft NT/ND no LE edema CBC, BMP 11/01/17 06:30 11/01/17 06:30 Current Medications Acetaminophen (Tylenol -) 650 mg PO Q4H PRN PRN Reason: MODERATE PAIN Acetaminophen (Tylenol -) 325 mg PO Q4H PRN PRN Reason: PAIN LEVEL 6-10 Amino Acids (Prosource No Carb Liquid Pkt) 30 ml PO BID@0800,1730 [facility] Ascorbic Acid (Vitamin C -) 500 mg PO DAILY [facility] Aspirin (Asa -) 81 mg PO DAILY [facility] Atorvastatin Calcium (Lipitor -) 10 mg PO HS [facility] Ferrous Sulfate (Feosol -) 325 mg PO BIDWM [facility] Heparin Sodium (Porcine) (Heparin -) 5,000 unit SQ TID [facility] Sodium Chloride (Normal Saline -) 1,000 mls @ 100 mls/hr IV ASDIR [facility] Last Admin: 11/01/17 20:00 Dose: 0 mls Vancomycin HCl 1,000 mg/ (Dextrose) 250 mls @ 166.667 mls/hr IVPB BID@0130, 1330 [facility]; Protocol Piperacillin Sod/Tazobactam (Sod 3.375 gm/ Dextrose) 50 mls @ 100 mls/hr IVPB Q8H-IV [facility]; Protocol Insulin Aspart (Novolog Vial Sliding Scale -) 1 vial SQ ACHS [facility]; Protocol Insulin Detemir (Levemir Vial) 10 units SQ HS [facility] Ketorolac Tromethamine (Toradol Injection -) 15 mg IVPUSH Q6H PRN PRN Reason: PAIN LEVEL 4 - 6 Stop: 11/06/17 07:55 Lisinopril (Prinivil) 10 mg PO DAILY [facility] Multivitamins/Minerals/Vitamin C (Tab-A-Vit -) 1 tab PO DAILY [facility] Oxycodone HCl (Roxicodone -) 5 mg PO Q4H PRN PRN Reason: PAIN LEVEL 6-10 Senna (Senna -) 1 tab PO HS [facility] 47 y/o gentleman with PMH DM, HTN and dyslipidemia presented to the ER with a infected foot ulcer with ANDREINA with Cr of 1.7. #ANDREINA secondary to renal hypoprofusion in setting of infection/ACEi/NSAIDs #LE wound #IDDM #Anemia Renal function now improved and stable Continue ACEi no need for IVF will need repeat UA as outpatient will sign off case at this time, please call with any questions or concerns Thank you Pierre Ford DO
[2017-11-01] MEDS ORDERED: INSULIN (NOVOLOG) ASPART 100 UNITS/ML 10ML VIAL ONE (21:09)
[2017-11-01] MEDS ORDERED: INSULIN (LEVEMIR) 100 UNITS/ML UNITS SQ SCH ×2 (22:00)
[2017-11-01] MEDS: ATORVASTATIN CA 10 MG TABLET (FP) PO SCH (22:00)
[2017-11-01] MEDS: SENNOSIDES 8.6MG TABLET (FP) PO SCH (22:00)
[2017-11-01] MEDS: oxyCODONE HCL 5 MG TABLET PO PRN (23:59)
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
[2017-11-02] MEDS ORDERED: PIPERACILLIN/TAZOB 3.375 GM 3.375 GM in DEXTROSE 5%-WATER - 50 ML IVPB SCH (02:00)
[2017-11-02] MEDS: VANCOMYCIN 1,000 MG in DEXTROSE 5%-WATER - 250 ML IVPB SCH ×2 (02:47→13:58)
[2017-11-02] MEDS: PIPERACILLIN/TAZOB 3.375 GM 3.375 GM in DEXTROSE 5%-WATER - 50 ML IVPB SCH ×3 (05:09→17:00)
[2017-11-02] MEDS: HEPARIN NA (PORCINE) 5,000 UNITS/ML 1ML VIAL SQ SCH ×3 (06:20→21:34)
[2017-11-02] MEDS: INSULIN SLIDING SCALE (NOVOLOG) 1 VIAL SQ SCH ×4 (06:23→21:34)
[2017-11-02] MEDS: FERROUS SO4 325 MG TABLET (FP) PO SCH ×2 (07:54→16:59)
[2017-11-02] MEDS: AMINO ACIDS/PROTEIN HYDROLYS 30 ML LIQUID.PKT PO SCH ×2 (07:54→16:59)
[2017-11-02] MEDS ORDERED: DEXTROSE 5%-WATER - 50 ML IVPB ONE ×2 (09:11→15:12)
[2017-11-02] MEDS ORDERED: PIPERACILLIN/TAZOBACTAM 3.375 GM VIAL IVPB ONE ×2 (09:11→15:12)
[2017-11-02] MEDS: ASCORBIC ACID 500 MG TABLET (FP) PO SCH (09:28)
[2017-11-02] MEDS: MULTIVITAMINS (DAILY MVI) TABLET (FP) PO SCH (09:28)
[2017-11-02] MEDS: LISINOPRIL 10 MG TABLET (FP) PO SCH (09:28)
[2017-11-02] MEDS: ASPIRIN 81 MG CHEWABLE TABLETS PO SCH (09:28)
[2017-11-02] MEDS: SODIUM CHLORIDE 1,000 ML IV SCH (09:32)
[2017-11-02] MEDS: oxyCODONE HCL 5 MG TABLET PO PRN ×3 (09:37→21:51)
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
--- NOTE | 2017-11-02 11:15 | PN ---
Progress Note (short form) - Note Progress Note: s/p operative debridement yesterday Vital Signs Period Temp Pulse Resp BP Sys/Coffey Pulse Ox Last 24 Hr 98.0 F-100.7 F 88-105 16-20 117-148/58-82 96-98 cor-rrr lungs clear abd soft,nt ext dressing intact CBC, BMP 11/01/17 06:30 11/01/17 06:30 Microbiology 10/30/17 17:25 Blood - Peripheral Venous Blood Culture - Preliminary NO GROWTH OBTAINED AFTER 48 HOURS, INCUBATION TO CONTINUE FOR 3 DAYS. 10/30/17 17:15 Blood - Peripheral Venous Blood Culture - Preliminary NO GROWTH OBTAINED AFTER 48 HOURS, INCUBATION TO CONTINUE FOR 3 DAYS. 10/31/17 00:05 Foot - Right Dorsum Gram Stain - Final 10/31/17 00:05 Foot - Right Dorsum Wound Culture - Preliminary Pending Organism 10/30/17 17:15 Urine - Urine Clean Catch Urine Culture - Final NO GROWTH OBTAINED a/p diabetic foot infection ?osteo f/tommie cultures continue vanco/zosyn check cultures vancomycin trough ordered
[2017-11-02] MEDS ORDERED: INSULIN (NOVOLOG) ASPART 100 UNITS/ML 10ML VIAL ONE ×2 (11:16→21:27)
[2017-11-02] MEDS: POLYETHYLENE GLYCOL 3350 119 GM BTL PO PRN (11:41)
[2017-11-02 12:37] LABS: BASO % 0.3 % (0-2.0); EOS % 0.7 % (0-4.5); HEMATOCRIT 31.9 % (35.4-49); HEMOGLOBIN 10.6 GM/dL (11.7-16.9); LYMPH % 15.1 % (8-40); MCH 26.6 pg (25.7-33.7); MCHC 33.3 g/dl (32.0-35.9); MEAN CELL VOLUME 79.8 fl (80-96); MONO % 9.5 % (3.8-10.2); NEUT % 74.4 % (42.8-82.8); PLATELET COUNT 405 K/MM3 (134-434); RDW 13.6 % (11.9-15.9)
[2017-11-02] MEDS: ACETAMINOPHEN 325 MG TABLET (FP) PO PRN (17:12)
[2017-11-02] MEDS: ATORVASTATIN CA 10 MG TABLET (FP) PO SCH (21:35)
[2017-11-02] MEDS: INSULIN (LEVEMIR) 100 UNITS/ML UNITS SQ SCH (21:35)
[2017-11-02] MEDS: SENNOSIDES 8.6MG TABLET (FP) PO SCH (21:35)
[2017-11-03] MEDS ORDERED: PT OWN MED DRAWER 7, Y5N ONE (01:04)
[2017-11-03] MEDS ORDERED: DEXTROSE 5%-WATER - 50 ML IVPB ONE ×2 (01:05→17:13)
[2017-11-03] MEDS ORDERED: PIPERACILLIN/TAZOBACTAM 3.375 GM VIAL IVPB ONE ×3 (01:05→17:13)
[2017-11-03] MEDS: VANCOMYCIN 1,000 MG in DEXTROSE 5%-WATER - 250 ML IVPB SCH ×2 (01:10→14:12)
[2017-11-03] MEDS: PIPERACILLIN/TAZOB 3.375 GM 3.375 GM in DEXTROSE 5%-WATER - 50 ML IVPB SCH ×3 (02:37→17:35)
[2017-11-03] MEDS: POLYETHYLENE GLYCOL 3350 119 GM BTL PO PRN (06:23)
[2017-11-03] MEDS: HEPARIN NA (PORCINE) 5,000 UNITS/ML 1ML VIAL SQ SCH ×3 (06:24→22:00)
[2017-11-03] MEDS: INSULIN SLIDING SCALE (NOVOLOG) 1 VIAL SQ SCH ×4 (06:24→21:59)
[2017-11-03] MEDS ORDERED: INSULIN (NOVOLOG) ASPART 100 UNITS/ML 10ML VIAL ONE ×3 (06:30→21:55)
[2017-11-03 08:25] LABS: BASO % 0.4 % (0-2.0); EOS % 1.4 % (0-4.5); HEMATOCRIT 28.4 % (35.4-49); HEMOGLOBIN 9.7 GM/dL (11.7-16.9); LYMPH % 19.4 % (8-40); MCH 26.9 pg (25.7-33.7); MCHC 34.1 g/dl (32.0-35.9); MEAN CELL VOLUME 78.8 fl (80-96); MONO % 12.3 % (3.8-10.2); NEUT % 66.5 % (42.8-82.8); PLATELET COUNT 377 K/MM3 (134-434); RDW 13.3 % (11.9-15.9); WHITE BLOOD COUNT 10.5 K/mm3 (4.0-10.0)
[2017-11-03] MEDS: AMINO ACIDS/PROTEIN HYDROLYS 30 ML LIQUID.PKT PO SCH ×2 (08:39→17:31)
[2017-11-03] MEDS: FERROUS SO4 325 MG TABLET (FP) PO SCH ×2 (08:39→17:31)
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
[2017-11-03] MEDS: oxyCODONE HCL 5 MG TABLET PO PRN ×2 (09:57→17:33)
[2017-11-03] MEDS: ASCORBIC ACID 500 MG TABLET (FP) PO SCH (09:58)
[2017-11-03] MEDS: ASPIRIN 81 MG CHEWABLE TABLETS PO SCH (09:58)
[2017-11-03] MEDS: MULTIVITAMINS (DAILY MVI) TABLET (FP) PO SCH (09:58)
[2017-11-03] MEDS: LISINOPRIL 10 MG TABLET (FP) PO SCH (09:58)
--- NOTE | 2017-11-03 10:29 | PN ---
Progress Note (short form) - Note Progress Note: s/p operative debridement 11/01, some pus noted, no bone biopsy done- d/w Dr Torres Vital Signs Period Temp Pulse Resp BP Sys/Coffey Pulse Ox Last 24 Hr 98.7 F-100.6 F 91-94 20-20 116-157/64-84 98 cor-rrr lung clear abd soft,nt ext open ulcer dorsal surface of the foot exposed tendons, no exposed bones CBC, BMP 11/03/17 07:30 11/01/17 06:30 Microbiology 10/30/17 17:15 Blood - Peripheral Venous Blood Culture - Preliminary NO GROWTH OBTAINED AFTER 72 HOURS, INCUBATION TO CONTINUE FOR 2 DAYS. 10/30/17 17:25 Blood - Peripheral Venous Blood Culture - Preliminary NO GROWTH OBTAINED AFTER 72 HOURS, INCUBATION TO CONTINUE FOR 2 DAYS. 10/31/17 00:05 Foot - Right Dorsum Gram Stain - Final 10/31/17 00:05 Foot - Right Dorsum Wound Culture - Final Alpha Hemolytic Streptococcus Corynebacterium Species 10/30/17 17:15 Urine - Urine Clean Catch Urine Culture - Final NO GROWTH OBTAINED xrays of the foot with bony destruction toes 4/5 Laboratory Tests 10/30/17 10/31/17 11/02/17 17:25 03:00 12:05 ESR 82 H 97 H C-Reactive Protein 14.3 H a/p probable osteomyelitis of the foot given extent of the wound, chronicity of the ulcer, elevated inflammatory markers and bony changes on the foot xray would favor treating detention for osteomyelitis with picc line and iv antibiotics at home niddm dylan resolved a
--- NOTE | 2017-11-03 10:41 | PN ---
Progress Note (short form) - Note Progress Note: Wound clean, small amount of bloody drainage. Discussed with ID - will continue IV abx VAC to be tried
[2017-11-03] MEDS ORDERED: PICC LINE 8 ML FLUSH PROTOCOL IVPUSH PRN (15:29)
[2017-11-03] MEDS: ACETAMINOPHEN 325 MG TABLET (FP) PO PRN (17:32)
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
[2017-11-03] MEDS: SENNOSIDES 8.6MG TABLET (FP) PO SCH (22:00)
[2017-11-03] MEDS: INSULIN (LEVEMIR) 100 UNITS/ML UNITS SQ SCH (22:00)
[2017-11-03] MEDS: ATORVASTATIN CA 10 MG TABLET (FP) PO SCH (22:00)
[2017-11-04] MEDS: VANCOMYCIN 1,000 MG in DEXTROSE 5%-WATER - 250 ML IVPB SCH ×2 (01:05→12:56)
[2017-11-04] MEDS ORDERED: PIPERACILLIN/TAZOBACTAM 3.375 GM VIAL IVPB ONE ×3 (01:11→17:20)
[2017-11-04] MEDS ORDERED: DEXTROSE 5%-WATER - 50 ML IVPB ONE ×3 (01:12→17:20)
[2017-11-04] MEDS: oxyCODONE HCL 5 MG TABLET PO PRN ×3 (01:15→22:02)
[2017-11-04] MEDS: PIPERACILLIN/TAZOB 3.375 GM 3.375 GM in DEXTROSE 5%-WATER - 50 ML IVPB SCH ×3 (02:30→17:32)
[2017-11-04] MEDS: INSULIN SLIDING SCALE (NOVOLOG) 1 VIAL SQ SCH ×4 (06:25→22:05)
[2017-11-04] MEDS: HEPARIN NA (PORCINE) 5,000 UNITS/ML 1ML VIAL SQ SCH ×3 (06:25→21:58)
[2017-11-04] MEDS ORDERED: INSULIN (NOVOLOG) ASPART 100 UNITS/ML 10ML VIAL ONE ×2 (06:28→10:13)
[2017-11-04 07:32] LABS: BASO % 0.5 % (0-2.0); EOS % 1.3 % (0-4.5); HEMATOCRIT 28.1 % (35.4-49); HEMOGLOBIN 9.5 GM/dL (11.7-16.9); LYMPH % 26.4 % (8-40); MCH 26.7 pg (25.7-33.7); MCHC 33.7 g/dl (32.0-35.9); MEAN CELL VOLUME 79.1 fl (80-96); MEAN PLT VOLUME 8.1 fl (7.5-11.1); MONO % 12.3 % (3.8-10.2); NEUT % 59.5 % (42.8-82.8); PLATELET COUNT 370 K/MM3 (134-434); RBC 3.56 M/mm3 (4.00-5.60); RDW 13.8 % (11.9-15.9); WHITE BLOOD COUNT 9.6 K/mm3 (4.0-10.0)
[2017-11-04] MEDS: AMINO ACIDS/PROTEIN HYDROLYS 30 ML LIQUID.PKT PO SCH ×2 (08:03→17:32)
[2017-11-04] MEDS: FERROUS SO4 325 MG TABLET (FP) PO SCH ×2 (08:03→17:32)
[2017-11-04] MEDS ORDERED: PT OWN MED DRAWER 7, Y5N ONE (09:13)
[2017-11-04] MEDS: ASCORBIC ACID 500 MG TABLET (FP) PO SCH (09:19)
[2017-11-04] MEDS: LISINOPRIL 10 MG TABLET (FP) PO SCH (09:19)
[2017-11-04] MEDS: ASPIRIN 81 MG CHEWABLE TABLETS PO SCH (09:19)
[2017-11-04] MEDS: MULTIVITAMINS (DAILY MVI) TABLET (FP) PO SCH (09:19)
--- NOTE | 2017-11-04 14:15 | PROC ---
Procedure Note Procedure: POD #3 s/p excsional debridement of skin, tendon and muscle right foot Asked by Dr. Torres to place to wound VAC. Tissue viable/pink/clean/no foul odor Right foot cleansed prior too [placing wound VAC. Black sponge placed just inside of wound border. Foam bridge to dorsum of foot. Placed on suction at 125mmHg Good suction as evidenced by complete collapse of foam. Dressing changes ordered for M-W-F while in hospital. Patient tolerated procedure well.
--- NOTE | 2017-11-04 15:08 | PN ---
Progress Note, Physician History of Present Illness: Awake, alert C/O episodic sharp R foot pain No fever/ chills Tolerating antibiotics - Current Medication List Current Medications: Active Medications Acetaminophen (Tylenol -) 650 mg PO Q4H PRN PRN Reason: MODERATE PAIN Last Admin: 11/03/17 17:32 Dose: 650 mg Acetaminophen (Tylenol -) 325 mg PO Q4H PRN PRN Reason: PAIN LEVEL 6-10 Amino Acids (Prosource No Carb Liquid Pkt) 30 ml PO BID@0800,1730 [facility] Last Admin: 11/04/17 08:03 Dose: 30 ml Ascorbic Acid (Vitamin C -) 500 mg PO DAILY [facility] Last Admin: 11/04/17 09:19 Dose: 500 mg Aspirin (Asa -) 81 mg PO DAILY [facility] Last Admin: 11/04/17 09:19 Dose: 81 mg Atorvastatin Calcium (Lipitor -) 10 mg PO HS [facility] Last Admin: 11/03/17 22:00 Dose: 10 mg Ferrous Sulfate (Feosol -) 325 mg PO BIDWM [facility] Last Admin: 11/04/17 08:03 Dose: 325 mg Heparin Sodium (Porcine) (Heparin -) 5,000 unit SQ TID [facility] Last Admin: 11/04/17 13:01 Dose: 5,000 unit IV Flush (Picc Line Flush) 8 ml IVPUSH PRN PRN PRN Reason: Protocol Vancomycin HCl 1,000 mg/ (Dextrose) 250 mls @ 166.667 mls/hr IVPB BID@0130, 1330 [facility]; Protocol Last Admin: 11/04/17 12:56 Dose: 166.667 mls/hr Piperacillin Sod/Tazobactam (Sod 3.375 gm/ Dextrose) 50 mls @ 100 mls/hr IVPB Q8H-IV [facility]; Protocol Last Admin: 11/04/17 09:19 Dose: 100 mls/hr Insulin Aspart (Novolog Vial Sliding Scale -) 1 vial SQ ACHS [facility]; Protocol Last Admin: 11/04/17 10:27 Dose: 4 units Insulin Detemir (Levemir Vial) 18 units SQ HS [facility] Last Admin: 11/03/17 22:00 Dose: 18 units Ketorolac Tromethamine (Toradol Injection -) 15 mg IVPUSH Q6H PRN PRN Reason: PAIN LEVEL 4 - 6 Stop: 11/06/17 07:55 Lisinopril (Prinivil) 10 mg PO DAILY [facility] Last Admin: 11/04/17 09:19 Dose: 10 mg Multivitamins/Minerals/Vitamin C (Tab-A-Vit -) 1 tab PO DAILY [facility] Last Admin: 11/04/17 09:19 Dose: 1 tab Oxycodone HCl (Roxicodone -) 5 mg PO Q4H PRN PRN Reason: PAIN LEVEL 6-10 Last Admin: 11/04/17 13:06 Dose: 5 mg Polyethylene Glycol (Miralax (For Daily Use) -) 17 gm PO DAILY PRN PRN Reason: CONSTIPATION Last Admin: 11/03/17 06:23 Dose: 17 gm Senna (Senna -) 1 tab PO HS [facility] Last Admin: 11/03/17 22:00 Dose: 1 tab - Objective Vital Signs: Vital Signs Temperature 98.2 F 11/04/17 14:40 Pulse Rate 94 H 11/04/17 14:40 Respiratory Rate 20 11/04/17 08:00 Blood Pressure 144/74 11/04/17 14:40 O2 Sat by Pulse Oximetry (%) 98 11/04/17 08:00 Constitutional: Yes: No Distress Eyes: Yes: Conjunctiva Clear Cardiovascular: Yes: Regular Rate and Rhythm, S1, S2 Respiratory: Yes: CTA Bilaterally Gastrointestinal: Yes: Normal Bowel Sounds, Soft. No: Tenderness Extremities: Yes: Other (VAC in place R foot) Labs: CBC, BMP 11/04/17 06:20 11/01/17 06:30 INR, PTT INR 1.18 (0.82-1.09) H 11/01/17 06:30 Assessment/Plan S/P excisional debridement R foot wound Leukocytosis- resolved Diabetes mellitus PICC for outpatient antibiotics Ceftriaxone 2gm IVPB q24h
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
[2017-11-04] MEDS: SENNOSIDES 8.6MG TABLET (FP) PO SCH (21:58)
[2017-11-04] MEDS: ATORVASTATIN CA 10 MG TABLET (FP) PO SCH (21:58)
[2017-11-04] MEDS: INSULIN (LEVEMIR) 100 UNITS/ML UNITS SQ SCH (22:04)
[2017-11-05] MEDS ORDERED: PIPERACILLIN/TAZOBACTAM 3.375 GM VIAL IVPB ONE (02:15)
[2017-11-05] MEDS ORDERED: DEXTROSE 5%-WATER - 50 ML IVPB ONE (02:16)
[2017-11-05] MEDS ORDERED: PT OWN MED DRAWER 7, Y5N ONE ×2 (02:18→02:28)
[2017-11-05] MEDS: PIPERACILLIN/TAZOB 3.375 GM 3.375 GM in DEXTROSE 5%-WATER - 50 ML IVPB SCH (02:21)
[2017-11-05] MEDS: VANCOMYCIN 1,000 MG in DEXTROSE 5%-WATER - 250 ML IVPB SCH (02:31)
[2017-11-05] MEDS: HEPARIN NA (PORCINE) 5,000 UNITS/ML 1ML VIAL SQ SCH ×3 (06:11→21:03)
[2017-11-05] MEDS: INSULIN SLIDING SCALE (NOVOLOG) 1 VIAL SQ SCH ×4 (06:14→21:03)
[2017-11-05] MEDS ORDERED: CEFTRIAXONE 2 MG in DEXTROSE 5%-WATER - 50 ML IVPB SCH (08:45)
[2017-11-05] MEDS: FERROUS SO4 325 MG TABLET (FP) PO SCH ×2 (09:14→16:33)
[2017-11-05] MEDS: AMINO ACIDS/PROTEIN HYDROLYS 30 ML LIQUID.PKT PO SCH ×2 (09:14→16:33)
[2017-11-05] MEDS: LISINOPRIL 10 MG TABLET (FP) PO SCH (09:14)
[2017-11-05] MEDS: ASCORBIC ACID 500 MG TABLET (FP) PO SCH (09:14)
[2017-11-05] MEDS: MULTIVITAMINS (DAILY MVI) TABLET (FP) PO SCH (09:14)
[2017-11-05] MEDS: ASPIRIN 81 MG CHEWABLE TABLETS PO SCH (09:14)
[2017-11-05 09:15] LABS: BASO % 0.6 % (0-2.0); EOS % 1.4 % (0-4.5); HEMATOCRIT 28.8 % (35.4-49); HEMOGLOBIN 9.7 GM/dL (11.7-16.9); MCH 26.8 pg (25.7-33.7); MCHC 33.7 g/dl (32.0-35.9); MEAN CELL VOLUME 79.5 fl (80-96); MEAN PLT VOLUME 7.8 fl (7.5-11.1); MONO % 12.8 % (3.8-10.2); NEUT % 61.2 % (42.8-82.8); PLATELET COUNT 445 K/MM3 (134-434); RBC 3.62 M/mm3 (4.00-5.60); RDW 13.3 % (11.9-15.9); WHITE BLOOD COUNT 10.5 K/mm3 (4.0-10.0)
[2017-11-05] MEDS: POLYETHYLENE GLYCOL 3350 119 GM BTL PO PRN (09:18)
[2017-11-05 09:54] LABS: ALBUMIN 2.4 g/dl (3.4-5.0); ANION GAP 8 (8-16); BLOOD UREA NITROGEN 13 mg/dL (7-18); CALCIUM 8.8 mg/dL (8.5-10.1); CHLORIDE 100 mmol/L (98-107); CO2 30 mmol/L (21-32); CREATININE 1.1 mg/dL (0.7-1.3); GLUCOSE,RANDOM 151 mg/dL (74-106); PHOSPHOROUS 3.5 mg/dL (2.5-4.9); POTASSIUM 4.1 mmol/L (3.5-5.1); SGOT/AST 35 U/L (15-37); SGPT/ALT 44 U/L (12-78); SODIUM 138 mmol/L (136-145)
[2017-11-05 09:56] LABS: ALK PHOS 115 U/L (45-117); BILIRUBIN,TOTAL 0.3 mg/dL (0.2-1.0); TOT PROT 6.5 g/dl (6.4-8.2)
[2017-11-05] MEDS ORDERED: INSULIN (NOVOLOG) ASPART 100 UNITS/ML 10ML VIAL ONE ×3 (10:13→20:30)
[2017-11-05] MEDS ORDERED: DEXTROSE 5%-WATER 100 ML IVPB ONE (10:58)
[2017-11-05] MEDS: CEFTRIAXONE 2 GM in DEXTROSE 5%-WATER 100 ML IVPB SCH (11:01)
--- NOTE | 2017-11-05 13:18 | PN ---
Progress Note, Physician History of Present Illness: Awake, alert C/O episodic sharp R foot pain No fever/ chills Tolerating antibiotics - Current Medication List Current Medications: Active Medications Acetaminophen (Tylenol -) 650 mg PO Q4H PRN PRN Reason: MODERATE PAIN Last Admin: 11/03/17 17:32 Dose: 650 mg Acetaminophen (Tylenol -) 325 mg PO Q4H PRN PRN Reason: PAIN LEVEL 6-10 Amino Acids (Prosource No Carb Liquid Pkt) 30 ml PO BID@0800,1730 [facility] Last Admin: 11/05/17 09:14 Dose: 30 ml Ascorbic Acid (Vitamin C -) 500 mg PO DAILY [facility] Last Admin: 11/05/17 09:14 Dose: 500 mg Aspirin (Asa -) 81 mg PO DAILY [facility] Last Admin: 11/05/17 09:14 Dose: 81 mg Atorvastatin Calcium (Lipitor -) 10 mg PO HS [facility] Last Admin: 11/04/17 21:58 Dose: 10 mg Ferrous Sulfate (Feosol -) 325 mg PO BIDWM [facility] Last Admin: 11/05/17 09:14 Dose: 325 mg Heparin Sodium (Porcine) (Heparin -) 5,000 unit SQ TID [facility] Last Admin: 11/05/17 06:11 Dose: 5,000 unit IV Flush (Picc Line Flush) 8 ml IVPUSH PRN PRN PRN Reason: Protocol Ceftriaxone Sodium 2 gm/ (Dextrose) 100 mls @ 100 mls/hr IVPB Q24H [facility] Last Admin: 11/05/17 11:01 Dose: 100 mls/hr Insulin Aspart (Novolog Vial Sliding Scale -) 1 vial SQ [facility]; Protocol Last Admin: 11/05/17 10:18 Dose: 2 units Insulin Detemir (Levemir Vial) 24 units SQ [facility] Ketorolac Tromethamine (Toradol Injection -) 15 mg IVPUSH Q6H PRN PRN Reason: PAIN LEVEL 4 - 6 Stop: 11/06/17 07:55 Lisinopril (Prinivil) 10 mg PO DAILY [facility] Last Admin: 11/05/17 09:14 Dose: 10 mg Multivitamins/Minerals/Vitamin C (Tab-A-Vit -) 1 tab PO DAILY [facility] Last Admin: 11/05/17 09:14 Dose: 1 tab Polyethylene Glycol (Miralax (For Daily Use) -) 17 gm PO DAILY PRN PRN Reason: CONSTIPATION Last Admin: 11/05/17 09:18 Dose: 17 gm Senna (Senna -) 1 tab PO HS [facility] Last Admin: 11/04/17 21:58 Dose: 1 tab - Objective Vital Signs: Vital Signs Temperature 99.7 F H 11/05/17 05:53 Pulse Rate 64 11/05/17 05:53 Respiratory Rate 20 11/05/17 05:53 Blood Pressure 127/66 11/05/17 05:53 O2 Sat by Pulse Oximetry (%) 98 11/04/17 21:00 Constitutional: Yes: No Distress Cardiovascular: Yes: Regular Rate and Rhythm, S1, S2 Respiratory: Yes: CTA Bilaterally Gastrointestinal: Yes: Normal Bowel Sounds, Soft. No: Tenderness Extremities: Yes: Other (VAC in place R foot No swelling / erythema) Labs: CBC, BMP 11/05/17 08:50 11/05/17 08:50 INR, PTT INR 1.18 (0.82-1.09) H 11/01/17 06:30 Assessment/Plan S/P excisional debridement R foot wound Leukocytosis- resolved Diabetes mellitus Day # 7 antibiotics PICC for outpatient antibiotics Ceftriaxone 2gm IVPB q24h x 5 weeks
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
--- NOTE | 2017-11-05 18:25 | PN ---
Teaching Attending Note Name of Resident: Gemma Nuñez ATTENDING PHYSICIAN STATEMENT I saw and evaluated the patient. I reviewed the resident's note and discussed the case with the resident. I agree with the resident's findings and plan as documented with exceptions below. SUBJECTIVE: Patient seen and examined. no fevers, chills, pain or new concerns. OBJECTIVE: Vital Signs Period Temp Pulse Resp BP Sys/Coffey Pulse Ox Last 24 Hr 97.7 F-99.7 F 64-97 20-20 127-160/66-89 98-98 Intake & Output 11/02/17 11/03/17 11/04/17 11/05/17 23:59 23:59 23:59 23:59 Intake Total 1850 2100 1575 1170 Output Total 900 1325 Balance 1850 2100 675 -155 General: lying in bed in no acute distress Extremities: right foot wound vac, positive DP pulses, no surrounding erythema, no discharge noted Home Medications Medication Instructions Recorded Dulaglutide [Trulicity] 0.75 mg SQ WEEKLY 10/30/17 Insulin Aspart [Novolog] 8 unit SQ TID 10/31/17 Insulin Glargine,Hum.rec.anlog 28 unit SQ HS 10/31/17 [Lantus] Ascorbic Acid [Vitamin C -] 500 mg PO DAILY #30 tablet 11/05/17 Aspirin [ASA -] 81 mg PO DAILY 11/05/17 Atorvastatin Ca [Lipitor] 10 mg PO HS #30 tablet 11/05/17 Budesonide/Formeterol Fumarate 2 puff PO BID 11/05/17 [SYMBICORT 160/4.5mcg -] Ceftriaxone [Rocephin -] 2 gm IVPB Q24H vial 11/05/17 Ferrous Sulfate [Feosol] 325 mg PO BIDWM #60 ud 11/05/17 Lisinopril [Prinivil] 10 mg PO DAILY #30 tablet 11/05/17 Polyethylene Glycol 3350 [Miralax 17 gm PO DAILY PRN #1 bottle 11/05/17 119 gm Btl -] Trazodone HCl 50 mg PO WEEKLY 11/05/17 Active Medications Acetaminophen (Tylenol -) 650 mg PO Q4H PRN PRN Reason: MODERATE PAIN Last Admin: 11/03/17 17:32 Dose: 650 mg Acetaminophen (Tylenol -) 325 mg PO Q4H PRN PRN Reason: PAIN LEVEL 6-10 Amino Acids (Prosource No Carb Liquid Pkt) 30 ml PO BID@0800,1730 [facility] Last Admin: 11/05/17 16:33 Dose: 30 ml Ascorbic Acid (Vitamin C -) 500 mg PO DAILY [facility] Last Admin: 11/05/17 09:14 Dose: 500 mg Aspirin (Asa -) 81 mg PO DAILY [facility] Last Admin: 11/05/17 09:14 Dose: 81 mg Atorvastatin Calcium (Lipitor -) 10 mg PO HS [facility] Last Admin: 11/04/17 21:58 Dose: 10 mg Ferrous Sulfate (Feosol -) 325 mg PO BIDWM [facility] Last Admin: 11/05/17 16:33 Dose: 325 mg Heparin Sodium (Porcine) (Heparin -) 5,000 unit SQ TID [facility] Last Admin: 11/05/17 14:40 Dose: Not Given IV Flush (Picc Line Flush) 8 ml IVPUSH PRN PRN PRN Reason: Protocol Ceftriaxone Sodium 2 gm/ (Dextrose) 100 mls @ 100 mls/hr IVPB Q24H [facility] Last Admin: 11/05/17 11:01 Dose: 100 mls/hr Insulin Aspart (Novolog Vial Sliding Scale -) 1 vial SQ [facility]; Protocol Last Admin: 11/05/17 16:33 Dose: 4 units Insulin Detemir (Levemir Vial) 24 units SQ [facility] Ketorolac Tromethamine (Toradol Injection -) 15 mg IVPUSH Q6H PRN PRN Reason: PAIN LEVEL 4 - 6 Stop: 11/06/17 07:55 Lisinopril (Prinivil) 10 mg PO DAILY [facility] Last Admin: 11/05/17 09:14 Dose: 10 mg Multivitamins/Minerals/Vitamin C (Tab-A-Vit -) 1 tab PO DAILY [facility] Last Admin: 11/05/17 09:14 Dose: 1 tab Polyethylene Glycol (Miralax (For Daily Use) -) 17 gm PO DAILY PRN PRN Reason: CONSTIPATION Last Admin: 11/05/17 09:18 Dose: 17 gm Senna (Senna -) 1 tab PO [facility] Last Admin: 11/04/17 21:58 Dose: 1 tab Laboratory Results - last 24 hr 11/04/17 11/04/17 11/05/17 16:43 22:00 05:55 WBC RBC Hgb Hct MCV MCH MCHC RDW Plt Count MPV Absolute Neuts (auto) Neutrophils % Lymphocytes % Monocytes % Eosinophils % Basophils % Nucleated RBC % Sodium Potassium Chloride Carbon Dioxide Anion Gap BUN Creatinine Creat Clearance w eGFR POC Glucometer 268 281 173 Random Glucose Calcium Phosphorus Magnesium Total Bilirubin AST ALT Alkaline Phosphatase Total Protein Albumin 11/05/17 11/05/17 11/05/17 08:50 08:50 10:18 WBC 10.5 H RBC 3.62 L Hgb 9.7 L Hct 28.8 L MCV 79.5 L MCH 26.8 MCHC 33.7 RDW 13.3 Plt Count 445 H D MPV 7.8 Absolute Neuts (auto) 6.4 Neutrophils % 61.2 Lymphocytes % 24.0 Monocytes % 12.8 H Eosinophils % 1.4 Basophils % 0.6 Nucleated RBC % 0 Sodium 138 Potassium 4.1 Chloride 100 Carbon Dioxide 30 Anion Gap 8 BUN 13 Creatinine 1.1 Creat Clearance w eGFR > 60 POC Glucometer 193 Random Glucose 151 H Calcium 8.8 Phosphorus 3.5 D Magnesium 2.0 Total Bilirubin 0.3 AST 35 D ALT 44 D Alkaline Phosphatase 115 Total Protein 6.5 Albumin 2.4 L 11/05/17 16:31 WBC RBC Hgb Hct MCV MCH MCHC RDW Plt Count MPV Absolute Neuts (auto) Neutrophils % Lymphocytes % Monocytes % Eosinophils % Basophils % Nucleated RBC % Sodium Potassium Chloride Carbon Dioxide Anion Gap BUN Creatinine Creat Clearance w eGFR POC Glucometer 225 Random Glucose Calcium Phosphorus Magnesium Total Bilirubin AST ALT Alkaline Phosphatase Total Protein Albumin Microbiology 10/30/17 17:25 Blood - Peripheral Venous Blood Culture - Final NO GROWTH AFTER 5 DAYS INCUBATION 10/30/17 17:15 Blood - Peripheral Venous Blood Culture - Final NO GROWTH AFTER 5 DAYS INCUBATION 10/31/17 00:05 Foot - Right Dorsum Gram Stain - Final 10/31/17 00:05 Foot - Right Dorsum Wound Culture - Final Alpha Hemolytic Streptococcus Corynebacterium Species 10/30/17 17:15 Urine - Urine Clean Catch Urine Culture - Final NO GROWTH OBTAINED ASSESSMENT AND PLAN: 47yo M with PMH DM, HTN and dyslipidemia presnted to the ER with chills and foul smelling R foot ulcer -Sepsis from right foot diabetic wound with suspected Osteomyelitis -ANDREINA, due to sepsis/dehydration, resolved now -Hypomagnesemia -COnstipation -Microcytic anemia -IDDM, A1c 9.2 -HTN, controlled -HLD Plan: ID input noted 5 weeks of ceftriaxone, discussed with Dr. Torres, wound care follow up November 13. HOme VNS/infusion arranged. Resume home DM regimen. D/c home with outpatient ID/wound care follow up. Plan discussed with patient in detail, all questions answered.
[2017-11-05] MEDS: ATORVASTATIN CA 10 MG TABLET (FP) PO SCH (21:03)
[2017-11-05] MEDS: INSULIN (LEVEMIR) 100 UNITS/ML UNITS SQ SCH (21:03)
[2017-11-05] MEDS: SENNOSIDES 8.6MG TABLET (FP) PO SCH (21:04)
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
[2017-11-06] MEDS: HEPARIN NA (PORCINE) 5,000 UNITS/ML 1ML VIAL SQ SCH ×3 (05:55→21:08)
[2017-11-06] MEDS: INSULIN SLIDING SCALE (NOVOLOG) 1 VIAL SQ SCH ×4 (06:01→21:12)
[2017-11-06] MEDS: FERROUS SO4 325 MG TABLET (FP) PO SCH ×2 (08:34→16:43)
[2017-11-06] MEDS: AMINO ACIDS/PROTEIN HYDROLYS 30 ML LIQUID.PKT PO SCH ×2 (08:34→16:43)
[2017-11-06] MEDS ORDERED: DEXTROSE 5%-WATER 100 ML IVPB ONE (09:03)
[2017-11-06] MEDS: ASCORBIC ACID 500 MG TABLET (FP) PO SCH (09:23)
[2017-11-06] MEDS: MULTIVITAMINS (DAILY MVI) TABLET (FP) PO SCH (09:23)
[2017-11-06] MEDS: LISINOPRIL 10 MG TABLET (FP) PO SCH (09:23)
[2017-11-06] MEDS: ASPIRIN 81 MG CHEWABLE TABLETS PO SCH (09:23)
[2017-11-06] MEDS: CEFTRIAXONE 2 GM in DEXTROSE 5%-WATER 100 ML IVPB SCH (10:01)
[2017-11-06] MEDS: POLYETHYLENE GLYCOL 3350 119 GM BTL PO PRN (10:01)
--- NOTE | 2017-11-06 10:44 | PN ---
Physical Exam: SUBJECTIVE: Patient seen and examined, no complaints, no new leg pain, fevers, chills or concerns. OBJECTIVE: Vital Signs Period Temp Pulse Resp BP Sys/Coffey Pulse Ox Last 24 Hr 97.2 F-98.5 F 81-103 18-20 120-160/70-89 99 GENERAL: sitting in bed in no acute distress Abdomen: soft, NT Extremities: right foot dorsum wound vac noted, no surrounding erythema/bleed or discharge Laboratory Results - last 24 hr 11/04/17 11/05/17 11/05/17 16:43 10:18 16:31 POC Glucometer 268 193 225 11/05/17 11/06/17 20:54 05:52 POC Glucometer 276 171 Active Medications Generic Name Dose Route Start Last Admin Trade Name Freq PRN Reason Stop Dose Admin Acetaminophen 650 mg 11/01/17 19:59 11/03/17 17:32 Tylenol - PO 650 mg Q4H PRN Administration MODERATE PAIN Acetaminophen 325 mg 11/01/17 19:59 Tylenol - PO Q4H PRN PAIN LEVEL 6-10 Amino Acids 30 ml 11/02/17 08:00 11/06/17 08:34 Prosource No Carb Liquid Pkt PO 30 ml BID@0800,1730 [facility] Administration Ascorbic Acid 500 mg 11/02/17 10:00 11/06/17 09:23 Vitamin C - PO 500 mg DAILY [facility] Administration Aspirin 81 mg 11/02/17 10:00 11/06/17 09:23 Asa - PO 81 mg DAILY [facility] Administration Atorvastatin Calcium 10 mg 11/01/17 22:00 11/05/17 21:03 Lipitor - PO 10 mg HS [facility]Y Administration Ferrous Sulfate 325 mg 11/02/17 08:00 11/06/17 08:34 Feosol - PO 325 mg BIDWM [facility] Administration Heparin Sodium (Porcine) 5,000 unit 11/01/17 22:00 11/06/17 05:55 Heparin - SQ 5,000 unit TID [facility] Administration IV Flush 8 ml 11/03/17 15:29 Picc Line Flush IVPUSH PRN PRN Protocol Ceftriaxone Sodium 2 gm/ 100 mls @ 100 mls/hr 11/05/17 11:00 11/06/17 10:01 Dextrose IVPB 100 mls/hr Q24H [facility] Administration Insulin Aspart 1 vial 11/01/17 22:00 11/06/17 06:01 Novolog Vial Sliding Scale - SQ 2 units ACHS [facility] Administration Protocol Insulin Detemir 24 units 11/05/17 08:37 11/05/17 21:03 Levemir Vial SQ 24 units HS [facility] Administration Lisinopril 10 mg 11/02/17 10:00 11/06/17 09:23 Prinivil PO 10 mg DAILY [facility] Administration Multivitamins/Minerals/Vitamin C 1 tab 11/02/17 10:00 11/06/17 09:23 Tab-A-Vit - PO 1 tab DAILY [facility] Administration Polyethylene Glycol 17 gm 11/02/17 11:25 11/06/17 10:01 Miralax (For Daily Use) - PO 17 gm DAILY PRN Administration CONSTIPATION Senna 1 tab 11/01/17 22:00 11/05/17 21:04 Senna - PO 1 tab HS [facility] Administration Microbiology 10/30/17 17:25 Blood - Peripheral Venous Blood Culture - Final NO GROWTH AFTER 5 DAYS INCUBATION 10/30/17 17:15 Blood - Peripheral Venous Blood Culture - Final NO GROWTH AFTER 5 DAYS INCUBATION 10/31/17 00:05 Foot - Right Dorsum Gram Stain - Final 10/31/17 00:05 Foot - Right Dorsum Wound Culture - Final Alpha Hemolytic Streptococcus Corynebacterium Species 10/30/17 17:15 Urine - Urine Clean Catch Urine Culture - Final NO GROWTH OBTAINED ASSESSMENT/PLAN: 47yo M with PMH DM, HTN and dyslipidemia presnted to the ER with chills and foul smelling R foot ulcer -Sepsis from right foot diabetic wound with suspected Osteomyelitis -ANDREINA, due to sepsis/dehydration, resolved now -Hypomagnesemia -COnstipation -Microcytic anemia -IDDM, A1c 9.2 -HTN, controlled -HLD Plan: ID input noted 5 weeks of ceftriaxone, discussed with Dr. Torres, wound care follow up November 13. HOme infusion arranged Hyperglycemia, resume home DM regimen on d/c Discussed with Social work, awaiting home VNS arrangements. D/c home once arrangements made, likely in 24 hours. Plan discussed with patient and RN in detail, all questions answered. Visit type - Emergency Visit Emergency Visit: Yes ED Registration Date: 10/30/17 Care time: The patient presented to the Emergency Department on the above date and was hospitalized for further evaluation of their emergent condition. - New Patient This patient is new to me today: No - Critical Care Critical Care patient: No - Discharge Referral Referred to [facility] No
[2017-11-06] MEDS: ACETAMINOPHEN 325 MG TABLET (FP) PO PRN (15:38)
[2017-11-06] MEDS: ATORVASTATIN CA 10 MG TABLET (FP) PO SCH (21:08)
[2017-11-06] MEDS: SENNOSIDES 8.6MG TABLET (FP) PO SCH (21:08)
[2017-11-06] MEDS: INSULIN (LEVEMIR) 100 UNITS/ML UNITS SQ SCH (21:12)
[2017-11-07] MEDS: HEPARIN NA (PORCINE) 5,000 UNITS/ML 1ML VIAL SQ SCH ×2 (05:25→15:13)
[2017-11-07] MEDS: INSULIN SLIDING SCALE (NOVOLOG) 1 VIAL SQ SCH ×3 (06:30→18:35)
[2017-11-07] MEDS ORDERED: INSULIN (NOVOLOG) ASPART 100 UNITS/ML 10ML VIAL ONE ×2 (06:34→11:06)
[2017-11-07] MEDS: AMINO ACIDS/PROTEIN HYDROLYS 30 ML LIQUID.PKT PO SCH ×2 (08:00→18:35)
[2017-11-07] MEDS: FERROUS SO4 325 MG TABLET (FP) PO SCH ×2 (08:00→18:35)
--- NOTE | 2017-11-07 08:46 | PN ---
Teaching Attending Note Name of Resident: Gemma Nuñez ATTENDING PHYSICIAN STATEMENT I saw and evaluated the patient. I reviewed the resident's note and discussed the case with the resident. I agree with the resident's findings and plan as documented with exceptions below. SUBJECTIVE: Patient seen and examined. no complaints. eager to go home OBJECTIVE: Vital Signs Period Temp Pulse Resp BP Sys/Coffey Pulse Ox Last 24 Hr 97.2 F-99.3 F 90-103 18-21 130-159/71-87 97-97 Intake & Output 11/04/17 11/05/17 11/06/17 11/07/17 23:59 23:59 23:59 23:59 Intake Total 1575 1650 650 Output Total 900 2125 700 Balance 675 -475 650 -700 General: sitting in bed in no acute distress Extremities: wound vac right foot dorsum, no surrounding swelling/erythema or discharge Home Medications Medication Instructions Recorded Dulaglutide [Trulicity] 0.75 mg SQ WEEKLY 10/30/17 Insulin Aspart [Novolog] 8 unit SQ TID 10/31/17 Insulin Glargine,Hum.rec.anlog 28 unit SQ HS 10/31/17 [Lantus] Ascorbic Acid [Vitamin C -] 500 mg PO DAILY #30 tablet 11/05/17 Aspirin [ASA -] 81 mg PO DAILY 11/05/17 Atorvastatin Ca [Lipitor] 10 mg PO HS #30 tablet 11/05/17 Budesonide/Formeterol Fumarate 2 puff PO BID 11/05/17 [SYMBICORT 160/4.5mcg -] Ceftriaxone [Rocephin -] 2 gm IVPB Q24H vial 11/05/17 Ferrous Sulfate [Feosol] 325 mg PO BIDWM #60 ud 11/05/17 Lisinopril [Prinivil] 10 mg PO DAILY #30 tablet 11/05/17 Polyethylene Glycol 3350 [Miralax 17 gm PO DAILY PRN #1 bottle 11/05/17 119 gm Btl -] Trazodone HCl 50 mg PO WEEKLY 11/05/17 Active Medications Acetaminophen (Tylenol -) 650 mg PO Q4H PRN PRN Reason: MODERATE PAIN Last Admin: 11/06/17 15:38 Dose: 650 mg Acetaminophen (Tylenol -) 325 mg PO Q4H PRN PRN Reason: PAIN LEVEL 6-10 Amino Acids (Prosource No Carb Liquid Pkt) 30 ml PO BID@0800,1730 [facility] Last Admin: 11/07/17 08:00 Dose: 30 ml Ascorbic Acid (Vitamin C -) 500 mg PO DAILY [facility] Last Admin: 11/06/17 09:23 Dose: 500 mg Aspirin (Asa -) 81 mg PO DAILY [facility] Last Admin: 11/06/17 09:23 Dose: 81 mg Atorvastatin Calcium (Lipitor -) 10 mg PO [facility] Last Admin: 11/06/17 21:08 Dose: 10 mg Ferrous Sulfate (Feosol -) 325 mg PO BIDWM [facility] Last Admin: 11/07/17 08:00 Dose: 325 mg Heparin Sodium (Porcine) (Heparin -) 5,000 unit SQ TID [facility] Last Admin: 11/07/17 05:25 Dose: 5,000 unit IV Flush (Picc Line Flush) 8 ml IVPUSH PRN PRN PRN Reason: Protocol Ceftriaxone Sodium 2 gm/ (Dextrose) 100 mls @ 100 mls/hr IVPB Q24H [facility] Last Admin: 11/06/17 10:01 Dose: 100 mls/hr Insulin Aspart (Novolog Vial Sliding Scale -) 1 vial SQ [facility]; Protocol Last Admin: 11/07/17 06:30 Dose: 4 units Insulin Detemir (Levemir Vial) 24 units SQ [facility] Last Admin: 11/06/17 21:12 Dose: 24 units Lisinopril (Prinivil) 10 mg PO DAILY [facility] Last Admin: 11/06/17 09:23 Dose: 10 mg Multivitamins/Minerals/Vitamin C (Tab-A-Vit -) 1 tab PO DAILY [facility] Last Admin: 11/06/17 09:23 Dose: 1 tab Polyethylene Glycol (Miralax (For Daily Use) -) 17 gm PO DAILY PRN PRN Reason: CONSTIPATION Last Admin: 11/06/17 10:01 Dose: 17 gm Senna (Senna -) 1 tab PO [facility] Last Admin: 11/06/17 21:08 Dose: 1 tab Laboratory Results - last 24 hr 11/06/17 11/06/17 11/06/17 10:27 16:18 20:55 POC Glucometer 265 361 298 11/07/17 05:24 POC Glucometer 202 Microbiology 10/30/17 17:25 Blood - Peripheral Venous Blood Culture - Final NO GROWTH AFTER 5 DAYS INCUBATION 10/30/17 17:15 Blood - Peripheral Venous Blood Culture - Final NO GROWTH AFTER 5 DAYS INCUBATION 10/31/17 00:05 Foot - Right Dorsum Gram Stain - Final 10/31/17 00:05 Foot - Right Dorsum Wound Culture - Final Alpha Hemolytic Streptococcus Corynebacterium Species 10/30/17 17:15 Urine - Urine Clean Catch Urine Culture - Final NO GROWTH OBTAINED ASSESSMENT AND PLAN: 47yo M with PMH DM, HTN and dyslipidemia presnted to the ER with chills and foul smelling R foot ulcer -Sepsis from right foot diabetic wound with suspected Osteomyelitis -ANDREINA, due to sepsis/dehydration, resolved now -Hypomagnesemia -COnstipation -Microcytic anemia -IDDM, A1c 9.2 -HTN, controlled -HLD Plan: ID input noted 5 weeks of ceftriaxone, discussed with Dr. Torres, wound care follow up November 13. HOme infusion arranged Hyperglycemia, resume home DM regimen on d/c Discussed with Social work, awaiting home VNS arrangements. D/c home once arrangements made Plan discussed with patient and RN in detail, all questions answered.
[2017-11-07] MEDS ORDERED: DEXTROSE 5%-WATER 100 ML IVPB ONE (08:57)
[2017-11-07] MEDS: ASCORBIC ACID 500 MG TABLET (FP) PO SCH (09:09)
[2017-11-07] MEDS: ASPIRIN 81 MG CHEWABLE TABLETS PO SCH (09:09)
[2017-11-07] MEDS: LISINOPRIL 10 MG TABLET (FP) PO SCH (09:09)
[2017-11-07] MEDS: POLYETHYLENE GLYCOL 3350 119 GM BTL PO PRN (09:09)
[2017-11-07] MEDS: MULTIVITAMINS (DAILY MVI) TABLET (FP) PO SCH (09:09)
[2017-11-07] MEDS: CEFTRIAXONE 2 GM in DEXTROSE 5%-WATER 100 ML IVPB SCH (10:21)
[2017-11-07 14:13] VITALS: BP 149/79; PULSE 88; TEMP 98.3
== END 2017-11-07 18:05 | disposition home health service (06) | DRG 854 ==
LOC: JER 16:27 → JERBED 22:40 → J6S 10-31 05:14
PROVIDERS: ADMIT Internal Medicine; ATTEND Hospitalist
PROC: 0LBN0ZZ Excision of Right Lower Leg Tendon, Open Approach (ICD-10-PCS; 2017-11-01)
PROC: 0HBKXZZ Excision of Right Lower Leg Skin, External Approach (ICD-10-PCS; 2017-11-01)
PROC: 0KBV0ZZ Excision of Right Foot Muscle, Open Approach (ICD-10-PCS; principal; 2017-11-01 15:00)
PROC: 2W1SX6Z Compression of Right Foot using Pressure Dressing (ICD-10-PCS; 2017-11-04)
PROC: 05H533Z Insertion of Infusion Device into Right Subclavian Vein, Percutaneous Approach (ICD-10-PCS; 2017-11-05)
PROC: B516ZZA Fluoroscopy of Right Subclavian Vein, Guidance (ICD-10-PCS; 2017-11-05)
DX: A41.9 Sepsis, unspecified organism (principal); L03.115 Cellulitis of right lower limb; N17.9 Acute kidney failure, unspecified; I12.9 Hypertensive chronic kidney disease with stage 1 through stage 4 chronic kidney disease, or unspecified chronic kidney disease; E11.22 Type 2 diabetes mellitus with diabetic chronic kidney disease; N18.9 Chronic kidney disease, unspecified; E83.42 Hypomagnesemia; E11.65 Type 2 diabetes mellitus with hyperglycemia; E11.40 Type 2 diabetes mellitus with diabetic neuropathy, unspecified; E11.628 Type 2 diabetes mellitus with other skin complications; E78.5 Hyperlipidemia, unspecified; Z79.84 Long term (current) use of oral hypoglycemic drugs; Z79.4 Long term (current) use of insulin; R30.0 Dysuria; Z87.891 Personal history of nicotine dependence; E86.0 Dehydration; D50.9 Iron deficiency anemia, unspecified; T25.321D Burn of third degree of right foot, subsequent encounter; X08.8XXD Exposure to other specified smoke, fire and flames, subsequent encounter; R31.9 Hematuria, unspecified; K59.00 Constipation, unspecified
CPT/HCPCS: 11042; 36415; 36569; 71046-TC-FY; 73630-TC-RT-FY; 76775-TC; 76937-TC; 80053; 81003; 81015; 82272; 82436; 82570; 82728; 82962; 83036; 83540; 83550; 83605; 83735; 84100; 84133; 84156; 84300; 84466; 85025; 85610; 85651; 85730; 86140; 87040; 87070; 87086; 87205; 93005; 93010; 94760; 99284-25; C1751; G0463-25; G0480; J1644; J7030

== ENCOUNTER 2018-10-12 12:04 | Inpatient (IN) | payer OTHER ==
--- NOTE | 2018-10-12 12:52 | PDOC ---
History of Present Illness - General Chief Complaint: Wound Stated Complaint: FEVER/WOUND CHECK Time Seen by Provider: 10/12/18 12:46 History Source: Patient Exam Limitations: No Limitations - History of Present Illness Initial Comments: 10/12/18 12:52 48y F hx of DM with neuropathy presents with complain of R foot pain - pt has hx of diabetic foot infection with multiple hospitalizations but has bee nstable for the past few months - approximately 2 days ago the patient noted increased pain on his right forefoot making difficult for him to ambulate. He denies any recent injuries or trauma. He does endorse feeling fevers and chills the last several days in addition to his increased the pain PMD in [facility] Past History - Past Medical History Allergies/Adverse Reactions: Allergies Allergy/AdvReac Type Severity Reaction Status Date / Time No Known Allergies Allergy Verified 10/12/18 12:08 Home Medications: Ambulatory Orders Insulin Aspart [Novolog] 0 unit SQ ASDIR 10/31/17 Insulin Glargine,Hum.rec.anlog [Lantus] 30 unit SQ HS 10/31/17 Aspirin [ASA -] 81 mg PO DAILY 11/05/17 Lisinopril [Prinivil] 10 mg PO DAILY #30 tablet 11/05/17 Simvastatin 10 mg PO DAILY 10/12/18 metFORMIN HCL [Metformin ER Osmotic] 1,000 mg PO DAILY 10/12/18 Anemia: No Asthma: Yes Cancer: No Cardiac Disorders: No CVA: No COPD: No CHF: No DVT: No Dementia: No Diabetes: Yes (TYPE 2 insulin dependent) GI Disorders: Yes (if not taking Miralax daily; constipated) Disorders: No HTN: Yes Hypercholesterolemia: Yes Liver Disease: No Seizures: No Thyroid Disease: No - Surgical History Abdominal Surgery: No Appendectomy: No Cardiac Surgery: No Cholecystectomy: No Lung Surgery: No Neurologic Surgery: No Orthopedic Surgery: No - Immunization History Immunization Up to Date: Yes - Suicide/Smoking/Psychosocial Hx Smoking History: Never smoked Have you smoked in the past 12 months: No Hx Alcohol Use: No Drug/Substance Use Hx: No Substance Use Type: None Review of Systems - Review of Systems Able to Perform ROS?: Yes Comments:: 10/12/18 12:59 Constitutional - reported Fever, Chills, HEENT: no reported vision changes, sore throat Respiratory: no reported cough, sob, hemoptysis Cardiac: no reported chest pain, palpitations, light headedness, leg swelling Abd/GI: no reported abd pain, nausea, vomiting, blood per rectum, melena, diarrhea : no reported dysuria, frequency, discharge Musculskelatal - +R foot pain no reported back pain, joint swelling skin - no reported bruising, erythema, rash neurological: no reported headache, numbness, focal weakness, tingling, ataxia, hematologic: no reported easy bruising, easy bleeding *Physical Exam - Vital Signs Last Vital Signs Temp Pulse Resp BP Pulse Ox 98 F 101 H 20 154/74 98 10/12/18 12:06 10/12/18 12:06 10/12/18 12:06 10/12/18 12:10/12/18 12:06 - Physical Exam Comments: 10/12/18 13:01 GENERAL: The patient is awake, alert, and fully oriented, Nontoxic - in no acute distress. HEAD: Normocephalic, atraumatic. EYES: extraocular movements intact, sclera anicteric, conjunctiva clear. ENT: Normal voice, Moist mucous membranes. NECK: Normal range of motion, supple LUNGS: Breath sounds equal, clear to auscultation bilaterally. No wheezes, no rhonchi, no rales. HEART: Regular rate and rhythm, normal S1 and S2 without murmur, rub or gallop. ABDOMEN: Soft, nontender, normoactive bowel sounds. No guarding, no rebound. . No CVA tenderness EXTREMITIES: mild ttp to the R forefoot with a puncture wound visible on distal forefoot with purulent discharge, no signfiicant erythema/warmth/indruation, scar on dorsal aspect of R foot without signs of active infection, deminished sensation to b/l LE. NEUROLOGICAL: No facial assymetry, Normal speech, movin gall 4 ext spontansouly and symmetrically PSYCH: Normal mood, normal affect. SKIN: Warm, Dry, normal turgor, Heart Score/ECG Review - ECG Impressions Comment:: 10/12/18 13:04 Twelve-lead EKG was performed and reviewed by me. There is normal sinus rhythm with a normal rate. Rate of 94 The axis is normal. The intervals are normal. There is normal R wave progression There are no ST or T wave abnormalities. Impression: Normal twelve-lead EKG ED Treatment Course - LABORATORY CBC & Chemistry Diagram: 10/12/18 12:52 10/12/18 12:52 Medical Decision Making - Medical Decision Making 10/12/18 13:02 suspect foot infection/abscess will obtain blood work/cutures will likely need imaging - will start with xray to r/o fb, and probabe CT to eval for abscess 10/12/18 14:48 The patient's lab work was reviewed is notable for leukocytosis the patient also has an ANDREINA with a creatinine 1.9 The patient's x-ray does reveal what looks like a foreign body in his foot, previous source of infection. Will admit the patient for further management 10/12/18 15:[address] Hansen agree with admission for further management stable for med surg Case discussed in detail with admitting physician including history, physical exam and ancillary studies. Admitting physician has assumed care for the patient, will follow all pending diagnostics and will complete the evaluation and treatment. *DC/Admit/Observation/Transfer Diagnosis at time of Disposition: Diabetic foot infection - Discharge Dispostion Condition at time of disposition: Stable Decision to Admit order: Yes - Referrals Referrals: Pedro Luis Camejo [Primary Care Provider] - - Patient Instructions - Post Discharge Activity
[2018-10-12] MEDS ORDERED: PIPERACILLIN/TAZOB 4.5 GM 4.5 GM in DEXTROSE 5%-WATER 100 ML IVPB ONE (13:02)
[2018-10-12 13:08] LABS: BASO % 0.3 % (0-2.0); EOS % 0.3 % (0-4.5); HEMOGLOBIN 11.2 GM/dL (11.7-16.9); LYMPH % 12.4 % (8-40); MCH 28.4 pg (25.7-33.7); MCHC 33.1 g/dl (32.0-35.9); MEAN CELL VOLUME 85.7 fl (80-96); MEAN PLT VOLUME 8.7 fl (7.5-11.1); MONO % 11.6 % (3.8-10.2); NEUT % 75.4 % (42.8-82.8); PLATELET COUNT 237 K/MM3 (134-434); RBC 3.96 M/mm3 (4.00-5.60); RDW 13.3 % (11.9-15.9); WHITE BLOOD COUNT 14.2 K/mm3 (4.0-10.0)
[2018-10-12] MEDS ORDERED: PIPERACILLIN/TAZOB 4.5 GM 4.5 GM/100 ML BAG IVPB ONE (13:23)
[2018-10-12 13:30] LABS: INR 1.05 (0.83-1.09); PROTHROMBIN TIME (PATIENT) 12.4 SEC (9.7-13.0)
[2018-10-12 13:46] LABS: ALBUMIN 3.3 g/dl (3.4-5.0); BILIRUBIN,TOTAL 0.6 mg/dL (0.2-1); BLOOD UREA NITROGEN 26.7 mg/dL (7-18); CALCIUM 8.8 mg/dL (8.5-10.1); CREATININE 1.9 mg/dL (0.55-1.3); POTASSIUM 4.8 mmol/L (3.5-5.1); TOT PROT 6.7 g/dl (6.4-8.2)
[2018-10-12] MEDS ORDERED: SODIUM CHLORIDE 1,000 ML IV ONE (14:47)
[2018-10-12] MEDS ORDERED: VANCOMYCIN 1,000 MG in DEXTROSE 5%-WATER - 250 ML IVPB ONE (15:16)
[2018-10-12] MEDS ORDERED: VANCOMYCIN 1 GRAM (PRE-DOCKED) 1,000 MG/250 ML BAG IVPB ONE (15:20)
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
[2018-10-12] MEDS ORDERED: ONDANSETRON 4 MG/2 ML VIAL IVPUSH PRN (15:52)
[2018-10-12] MEDS: SODIUM CHLORIDE 1,000 ML IV SCH (17:43)
[2018-10-12] MEDS: INSULIN SLIDING SCALE (NOVOLOG) 1 VIAL SQ SCH ×2 (17:43→22:05)
[2018-10-12] MEDS ORDERED: INSULIN (NOVOLOG) ASPART 100 UNITS/ML 10ML VIAL ONE (21:31)
[2018-10-12] MEDS ORDERED: DEXTROSE 5%-WATER - 50 ML IVPB ONE (21:32)
[2018-10-12] MEDS ORDERED: PIPERACILLIN/TAZOBACTAM 3.375 GM VIAL IVPB ONE (21:32)
[2018-10-12] MEDS: PIPERACILLIN/TAZOB 3.375 GM 3.375 GM in DEXTROSE 5%-WATER - 50 ML IVPB SCH (22:04)
[2018-10-12] MEDS: HEPARIN NA (PORCINE) 5,000 UNITS/ML 1ML VIAL SQ SCH (22:04)
[2018-10-12] MEDS: INSULIN (LEVEMIR) 100 UNITS/ML UNITS SQ SCH (22:05)
[2018-10-13] MEDS ORDERED: PIPERACILLIN/TAZOBACTAM 3.375 GM VIAL IVPB ONE ×3 (01:42→14:08)
[2018-10-13] MEDS ORDERED: DEXTROSE 5%-WATER - 50 ML IVPB ONE ×3 (01:42→14:08)
[2018-10-13] MEDS: PIPERACILLIN/TAZOB 3.375 GM 3.375 GM in DEXTROSE 5%-WATER - 50 ML IVPB SCH ×3 (02:08→14:11)
[2018-10-13] MEDS: HEPARIN NA (PORCINE) 5,000 UNITS/ML 1ML VIAL SQ SCH ×3 (06:24→22:09)
[2018-10-13] MEDS: INSULIN SLIDING SCALE (NOVOLOG) 1 VIAL SQ SCH ×4 (06:24→22:09)
[2018-10-13] MEDS: SODIUM CHLORIDE 1,000 ML IV SCH ×2 (06:25→16:55)
[2018-10-13 07:04] LABS: BASO % 0.4 % (0-2.0); EOS % 0.4 % (0-4.5); HEMATOCRIT 29.1 % (35.4-49); LYMPH % 19.6 % (8-40); MCH 28.5 pg (25.7-33.7); MCHC 34.3 g/dl (32.0-35.9); MEAN CELL VOLUME 83.2 fl (80-96); MEAN PLT VOLUME 8.5 fl (7.5-11.1); MONO % 11.6 % (3.8-10.2); PLATELET COUNT 243 K/MM3 (134-434); RDW 13.3 % (11.9-15.9); WHITE BLOOD COUNT 12.5 K/mm3 (4.0-10.0)
[2018-10-13 07:19] LABS: CALCIUM 8.5 mg/dL (8.5-10.1); CREATININE 1.6 mg/dL (0.55-1.3); MAGNESIUM 2.3 mg/dL (1.8-2.4); POTASSIUM 4.4 mmol/L (3.5-5.1)
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
--- NOTE | 2018-10-13 09:39 | PROC ---
Incision and Drainage Indication/Location: Right foot, plantar aspect Risks and Benefits Explained: Yes Consent on Chart: Yes Betadine cleansed: Yes (pre-wash area with hibiclens. Then chlorhexidine after betadine) Anesthesia: 1% Lidocaine (5mL) Blade Size: 10 Drainage: approximately 0.2mL pus Irrigated with Normal Saline: Yes (copious irrigation w/ 200mL sterile NS) Iodinated Packin/2 in Sterile Dressing Applied: Yes - Remarks Remarks: Foreign body extracted intact (glass shard). Repeat right foot xray ordered to make sure no retained foreign body. Patient tolerated procedure well.
--- NOTE | 2018-10-13 09:48 | PN ---
Teaching Attending Note Name of Resident: Maryuri Marinelli ATTENDING PHYSICIAN STATEMENT I saw and evaluated the patient. I reviewed the resident's note and discussed the case with the resident. I agree with the resident's findings and plan as documented with exceptions below. SUBJECTIVE: Patient seen and examined. just had bedside procedure as discussed with him. Denies any pain, fevers/chills or new concerns. OBJECTIVE: Vital Signs Period Temp Pulse Resp BP Sys/Coffey Pulse Ox Last 24 Hr 98 F-99.5 F 91-101 16-22 136-163/72-85 98-100 Intake & Output 10/10/18 10/11/18 10/12/18 10/13/18 23:59 23:59 23:59 23:59 Intake Total 350 Balance 350 Weight 177 lb 11.2 oz General: sitting in bed in no acute distress Chest: CTAB, no rales or wheezing Abdomen:soft, NT, ND, pos bowel sounds Extremities: right foot dressing per patient just had procedure done and new dressing placed "5 min ago" further exam deferred today Home Medications Medication Instructions Recorded Insulin Aspart [Novolog] 10 unit SQ TIDCM 10/31/17 Insulin Glargine,Hum.rec.anlog 30 unit SQ HS 10/31/17 [Lantus] Aspirin [ASA -] 81 mg PO DAILY 11/05/17 Lisinopril [Prinivil] 10 mg PO DAILY #30 tablet 11/05/17 Simvastatin 10 mg PO DAILY 10/12/18 metFORMIN HCL [Metformin ER 1,000 mg PO DAILY 10/12/18 Osmotic] Active Medications Acetaminophen (Tylenol -) 650 mg PO Q6H PRN PRN Reason: FEVER Aspirin (Asa -) 81 mg PO DAILY [facility] Heparin Sodium (Porcine) (Heparin -) 5,000 unit SQ TID ARY Last Admin: 10/13/18 06:24 Dose: 5,000 unit Sodium Chloride (Normal Saline -) 1,000 mls @ 100 mls/hr IV ASDIR ARY Last Admin: 10/13/18 06:25 Dose: 100 mls/hr Piperacillin Sod/Tazobactam (Sod 3.375 gm/ Dextrose) 50 mls @ 100 mls/hr IVPB Q6H-IV ARY; Protocol Stop: 10/13/18 20:59 Last Admin: 10/13/18 02:08 Dose: 100 mls/hr Insulin Aspart (Novolog Vial Sliding Scale -) 1 vial SQ [facility]; Protocol Last Admin: 10/13/18 06:24 Dose: Not Given Insulin Detemir (Levemir Vial) 20 units SQ HS [facility] Last Admin: 10/12/18 22:05 Dose: 20 units Ondansetron HCl (Zofran Injection) 4 mg IVPUSH Q6H PRN PRN Reason: NAUSEA Pantoprazole Sodium (Protonix -) 40 mg PO DAILY [facility] Laboratory Results - last 24 hr 10/12/18 10/12/18 10/12/18 12:52 12:52 12:52 WBC 14.2 H RBC 3.96 L Hgb 11.2 L Hct 34.0 L MCV 85.7 MCH 28.4 MCHC 33.1 RDW 13.3 Plt Count 237 D MPV 8.7 Absolute Neuts (auto) 10.7 H Neutrophils % 75.4 D Lymphocytes % 12.4 D Monocytes % 11.6 H Eosinophils % 0.3 D Basophils % 0.3 Nucleated RBC % 0 PT with INR INR Sodium 139 Potassium 4.8 Chloride 107 Carbon Dioxide 26 Anion Gap 6 L BUN 26.7 H Creatinine 1.9 H Est GFR (CKD-EPI)AfAm 47.60 Est GFR (CKD-EPI)NonAf 41.07 POC Glucometer Random Glucose 254 H Hemoglobin A1c % Lactic Acid 1.0 Calcium 8.8 Phosphorus Magnesium Total Bilirubin 0.6 AST 14 L ALT 30 Alkaline Phosphatase 91 Total Protein 6.7 Albumin 3.3 L Random Vancomycin Blood Type Antibody Screen 10/12/18 10/12/18 10/12/18 12:52 12:52 17:21 WBC RBC Hgb Hct MCV MCH MCHC RDW Plt Count MPV Absolute Neuts (auto) Neutrophils % Lymphocytes % Monocytes % Eosinophils % Basophils % Nucleated RBC % PT with INR 12.40 INR 1.05 Sodium Potassium Chloride Carbon Dioxide Anion Gap BUN Creatinine Est GFR (CKD-EPI)AfAm Est GFR (CKD-EPI)NonAf POC Glucometer 327 Random Glucose Hemoglobin A1c % Lactic Acid Calcium Phosphorus Magnesium Total Bilirubin AST ALT Alkaline Phosphatase Total Protein Albumin Random Vancomycin Blood Type O POSITIVE Antibody Screen Negative 10/12/18 10/12/18 10/13/18 18:30 22:03 06:17 WBC RBC Hgb Hct MCV MCH MCHC RDW Plt Count MPV Absolute Neuts (auto) Neutrophils % Lymphocytes % Monocytes % Eosinophils % Basophils % Nucleated RBC % PT with INR INR Sodium 142 Potassium 4.4 Chloride 112 H Carbon Dioxide 26 Anion Gap 5 L BUN 22.0 H Creatinine 1.6 H Est GFR (CKD-EPI)AfAm 58.59 Est GFR (CKD-EPI)NonAf 50.55 POC Glucometer 155 Random Glucose 128 H Hemoglobin A1c % Lactic Acid Calcium 8.5 Phosphorus 3.0 Magnesium 2.3 Total Bilirubin AST ALT Alkaline Phosphatase Total Protein Albumin Random Vancomycin Blood Type O POSITIVE Antibody Screen 10/13/18 10/13/18 10/13/18 06:23 06:30 06:30 WBC 12.5 H RBC 3.50 L Hgb 10.0 L Hct 29.1 L MCV 83.2 MCH 28.5 MCHC 34.3 RDW 13.3 Plt Count MPV 8.5 Absolute Neuts (auto) 8.5 H Neutrophils % 68.0 Lymphocytes % 19.6 D Monocytes % 11.6 H Eosinophils % 0.4 Basophils % 0.4 Nucleated RBC % 0 PT with INR INR Sodium Potassium Chloride Carbon Dioxide Anion Gap BUN Creatinine Est GFR (CKD-EPI)AfAm Est GFR (CKD-EPI)NonAf POC Glucometer 130 Random Glucose Hemoglobin A1c % Lactic Acid Calcium Phosphorus Magnesium Total Bilirubin AST ALT Alkaline Phosphatase Total Protein Albumin Random Vancomycin 4.0 L Blood Type Antibody Screen 10/13/18 06:30 WBC RBC Hgb Hct MCV MCH MCHC RDW Plt Count MPV Absolute Neuts (auto) Neutrophils % Lymphocytes % Monocytes % Eosinophils % Basophils % Nucleated RBC % PT with INR INR Sodium Potassium Chloride Carbon Dioxide Anion Gap BUN Creatinine Est GFR (CKD-EPI)AfAm Est GFR (CKD-EPI)NonAf POC Glucometer Random Glucose Hemoglobin A1c % 6.6 H Lactic Acid Calcium Phosphorus Magnesium Total Bilirubin AST ALT Alkaline Phosphatase Total Protein Albumin Random Vancomycin Blood Type Antibody Screen Microbiology 10/12/18 12:52 Foot - Right Plantar Gram Stain - Final ASSESSMENT AND PLAN: 48 yom with PMHX of IDDM, HTN, HLD, right foot osteomyelitis in 10/2017, s/p excisional debridement with Dr. Torres, s/p extended course of IV ceftriaxone, via PICC line, admitted with right foot infection/abscess likely from foreign body/glass with sepsis and ANDREINA. -Right foot infection/abscess secondary to glass shard, with sepsis s/p removal/ I&D 10/13 -ANDREINA, suspect from poor oral intake/Hyperglycemia with associated dehydration+/ - ACEi -Hyperglycemia/IDDM -HTN -HLD -H/o right foot osteomyelitis in 10/2017, s/p excisional debridement with Dr. Torres, s/p extended course of IV ceftriaxone, via PICC line Plan: Surgery input noted. s/p glass shard removal and I&D as discussed with Silvino Rosales. Follow up repeat Foot xray. Will d/c podiatry consult, discussed with Dr. Jay. Follow up blood/wound cx. Zosyn. s/p vancomycin in ED. Gm stain with GPC. Discussed with Dr. Benavidez, follow up. Continue IVF. Lantus 20 units hs, ISS. A1c noted. Resume home regimen per PO intake and blood sugar readings. Hold lisinopril. Renal function improved. Continue statin DVTPPX heparin Dispo in 48 hours if continues to improve and no further surgical intervention planned. Plan discussed with patient and nursing in detail, all questions answered. Care co-ordinated with ID and vascular surgery.
--- NOTE | 2018-10-13 10:03 | PN ---
Physical Exam: SUBJECTIVE: Patient seen and examined resting in bed nad. afebrile hemodynamically stable. no acute events. s/p R foot debridement/removal of glass from wound this morning. reports minimal pain in rle, was able to ambulate, denies f/c, weakness OBJECTIVE: Vital Signs Period Temp Pulse Resp BP Sys/Coffey Pulse Ox Last 24 Hr 98 F-99.5 F 91-101 16-22 136-163/72-85 98-100 GENERAL: The patient is awake, alert, and fully oriented, in no acute distress. HEAD: Normal with no signs of trauma. EYES: sclera anicteric, conjunctiva clear. No ptosis. ENT: moist mucous membranes. NECK: supple. LUNGS: Breath sounds equal, clear to auscultation bilaterally HEART: Regular rate and rhythm, S1, S2 ABDOMEN: Soft, nontender, nondistended, normoactive bowel sounds, no guarding, no rebound EXTREMITIES: 2+ pulses, warm, well-perfused, RLE clean dressing intact. NEUROLOGICAL: Cranial nerves II through XII grossly intact. Normal speech, gait not observed. PSYCH: Normal mood, normal affect. SKIN: Warm, dry Laboratory Results - last 24 hr 10/12/18 10/12/18 10/12/18 12:52 12:52 12:52 WBC 14.2 H RBC 3.96 L Hgb 11.2 L Hct 34.0 L MCV 85.7 MCH 28.4 MCHC 33.1 RDW 13.3 Plt Count 237 D MPV 8.7 Absolute Neuts (auto) 10.7 H Neutrophils % 75.4 D Lymphocytes % 12.4 D Monocytes % 11.6 H Eosinophils % 0.3 D Basophils % 0.3 Nucleated RBC % 0 PT with INR INR Sodium 139 Potassium 4.8 Chloride 107 Carbon Dioxide 26 Anion Gap 6 L BUN 26.7 H Creatinine 1.9 H Est GFR (CKD-EPI)AfAm 47.60 Est GFR (CKD-EPI)NonAf 41.07 POC Glucometer Random Glucose 254 H Hemoglobin A1c % Lactic Acid 1.0 Calcium 8.8 Phosphorus Magnesium Total Bilirubin 0.6 AST 14 L ALT 30 Alkaline Phosphatase 91 Total Protein 6.7 Albumin 3.3 L Random Vancomycin Blood Type Antibody Screen 10/12/18 10/12/18 10/12/18 12:52 12:52 17:21 WBC RBC Hgb Hct MCV MCH MCHC RDW Plt Count MPV Absolute Neuts (auto) Neutrophils % Lymphocytes % Monocytes % Eosinophils % Basophils % Nucleated RBC % PT with INR 12.40 INR 1.05 Sodium Potassium Chloride Carbon Dioxide Anion Gap BUN Creatinine Est GFR (CKD-EPI)AfAm Est GFR (CKD-EPI)NonAf POC Glucometer 327 Random Glucose Hemoglobin A1c % Lactic Acid Calcium Phosphorus Magnesium Total Bilirubin AST ALT Alkaline Phosphatase Total Protein Albumin Random Vancomycin Blood Type O POSITIVE Antibody Screen Negative 10/12/18 10/12/18 10/13/18 18:30 22:03 06:17 WBC RBC Hgb Hct MCV MCH MCHC RDW Plt Count MPV Absolute Neuts (auto) Neutrophils % Lymphocytes % Monocytes % Eosinophils % Basophils % Nucleated RBC % PT with INR INR Sodium 142 Potassium 4.4 Chloride 112 H Carbon Dioxide 26 Anion Gap 5 L BUN 22.0 H Creatinine 1.6 H Est GFR (CKD-EPI)AfAm 58.59 Est GFR (CKD-EPI)NonAf 50.55 POC Glucometer 155 Random Glucose 128 H Hemoglobin A1c % Lactic Acid Calcium 8.5 Phosphorus 3.0 Magnesium 2.3 Total Bilirubin AST ALT Alkaline Phosphatase Total Protein Albumin Random Vancomycin Blood Type O POSITIVE Antibody Screen 10/13/18 10/13/18 10/13/18 06:23 06:30 06:30 WBC 12.5 H RBC 3.50 L Hgb 10.0 L Hct 29.1 L MCV 83.2 MCH 28.5 MCHC 34.3 RDW 13.3 Plt Count MPV 8.5 Absolute Neuts (auto) 8.5 H Neutrophils % 68.0 Lymphocytes % 19.6 D Monocytes % 11.6 H Eosinophils % 0.4 Basophils % 0.4 Nucleated RBC % 0 PT with INR INR Sodium Potassium Chloride Carbon Dioxide Anion Gap BUN Creatinine Est GFR (CKD-EPI)AfAm Est GFR (CKD-EPI)NonAf POC Glucometer 130 Random Glucose Hemoglobin A1c % Lactic Acid Calcium Phosphorus Magnesium Total Bilirubin AST ALT Alkaline Phosphatase Total Protein Albumin Random Vancomycin 4.0 L Blood Type Antibody Screen 10/13/18 06:30 WBC RBC Hgb Hct MCV MCH MCHC RDW Plt Count MPV Absolute Neuts (auto) Neutrophils % Lymphocytes % Monocytes % Eosinophils % Basophils % Nucleated RBC % PT with INR INR Sodium Potassium Chloride Carbon Dioxide Anion Gap BUN Creatinine Est GFR (CKD-EPI)AfAm Est GFR (CKD-EPI)NonAf POC Glucometer Random Glucose Hemoglobin A1c % 6.6 H Lactic Acid Calcium Phosphorus Magnesium Total Bilirubin AST ALT Alkaline Phosphatase Total Protein Albumin Random Vancomycin Blood Type Antibody Screen Active Medications Generic Name Dose Route Start Last Admin Trade Name Jeremyq PRN Reason Stop Dose Admin Acetaminophen 650 mg 10/12/18 15:47 Tylenol - PO Q6H PRN FEVER Aspirin 81 mg 10/13/18 10:00 Asa - PO DAILY ARY Heparin Sodium (Porcine) 5,000 unit 10/12/18 22:00 10/13/18 06:24 Heparin - SQ 5,000 unit TID ARY Administration Sodium Chloride 1,000 mls @ 100 mls/hr 10/12/18 16:00 10/13/18 06:25 Normal Saline - IV 100 mls/hr ASDIR ARY Administration Piperacillin Sod/Tazobactam 50 mls @ 100 mls/hr 10/12/18 21:00 10/13/18 02:08 Sod 3.375 gm/ Dextrose IVPB 10/13/18 20:59 100 mls/hr Q6H-IV ARY Administration Protocol Insulin Aspart 1 vial 10/12/18 16:30 10/13/18 06:24 Novolog Vial Sliding Scale - SQ Not Given ACHS ARY Protocol Insulin Detemir 20 units 10/12/18 22:00 10/12/18 22:05 Levemir Vial SQ 20 units HS ARY Administration Ondansetron HCl 4 mg 10/12/18 15:52 Zofran Injection IVPUSH Q6H PRN NAUSEA Pantoprazole Sodium 40 mg 10/13/18 10:00 Protonix - PO DAILY [facility] ASSESSMENT/PLAN: This is a 48 yo M with PMH of IDDM, HTN, HLD, R foot osteomyelitis 10/2017 s/p excisional debridement with Dr. Torres and PICC abx melany, presenting here s/p stepping on glass and developing infection in RLE. Sepsis due to R foot abscess due to foreign body (glass) POD 0 s/o I and D ANDREINA IDDM HTN HLD -s/p debridement today f/u foot x ray to assure that all the glass has been removed -continue zosyn day 2, f/u ID recs -f/u cultures/gram stain -ISS, bgm ACHS, lantus 20 hs; hold metformin; a1c 6.6 -andreina improving, creat 1.6 (baseline 1.2) likley due to poor PO intake/ dehydration. hold AceI -continue lipitor 10 hs -hep ppx Problem List - Problems (1) ANDREINA (acute kidney injury) Code(s): N17.9 - ACUTE KIDNEY FAILURE, UNSPECIFIED (2) Diabetic foot infection Code(s): E11.628 - TYPE 2 DIABETES MELLITUS WITH OTHER SKIN COMPLICATIONS; L08.9 - LOCAL INFECTION OF THE SKIN AND SUBCUTANEOUS TISSUE, UNSP (3) Foreign body (FB) in soft tissue Code(s): M79.5 - RESIDUAL FOREIGN BODY IN SOFT TISSUE (4) Uncontrolled diabetes mellitus Code(s): E11.65 - TYPE 2 DIABETES MELLITUS WITH HYPERGLYCEMIA (5) Wound infection Code(s): T14.8XXA - OTHER INJURY OF UNSPECIFIED BODY REGION, INITIAL ENCOUNTER; L08.9 - LOCAL INFECTION OF THE SKIN AND SUBCUTANEOUS TISSUE, UNSP Visit type - Emergency Visit Emergency Visit: Yes ED Registration Date: 10/12/18 Care time: The patient presented to the Emergency Department on the above date and was hospitalized for further evaluation of their emergent condition. - New Patient This patient is new to me today: Yes Date on this admission: 10/13/18 - Critical Care Critical Care patient: No - Discharge Referral Referred to [facility] Med P.C.: No
[2018-10-13] MEDS: PANTOPRAZOLE 40 MG TABLET (FP) PO SCH (10:37)
[2018-10-13] MEDS: ASPIRIN 81 MG CHEWABLE TABLETS PO SCH (10:37)
--- NOTE | 2018-10-13 10:48 | PN ---
Progress Note (short form) - Note Progress Note: Repeat right foot xray s/p removal of foreign body --> no retained foreign body Problem List - Problems (1) Diabetic foot infection Code(s): E11.628 - TYPE 2 DIABETES MELLITUS WITH OTHER SKIN COMPLICATIONS; L08.9 - LOCAL INFECTION OF THE SKIN AND SUBCUTANEOUS TISSUE, UNSP (2) Uncontrolled diabetes mellitus Code(s): E11.65 - TYPE 2 DIABETES MELLITUS WITH HYPERGLYCEMIA
--- NOTE | 2018-10-13 10:50 | CON.ID ---
Consult Consult Specialty:: infectious disease Referred by:: hospitalist Reason for Consultation:: foot infection - History of Present Illness Chief Complaint: right foot pain with chills History of Present Illness: 48 yo man with PMH DM for over 20 years, right foot diabetic foot ulcer with ostomyelitis 11/2017 treated with iv ceftriaxone now admitted after stepping on glass at home he thinks this probably happened early saturday am after he got home from work, was having discomfort on the sole of his foot on sat and that he attributed to his boots and he changed the sole in the shoe on saturday he felt dizzy and had chills on Saturday he showed his Mother his foot she suggested he come to ED and he came on Saturday noted to have a 1 cm plantar ulcer with purulence and surrounding erythema xray with ?foreign body, this am surgery removed a piece of glass and drained 2 cc of pus from the foot +nausea and vomiting no diarrhea - History Source History Provided By: Patient Limitations to Obtaining History: No Limitations - Past Medical History Cardio/Vascular: Yes: HTN, Hyperlipdemia Infectious Disease: Yes: Other (osteomyelitis of the left foot) Musculoskeletal: Yes: Other (diabetic foot ulcer ) Endocrine: Yes: Diabetes Mellitus Additional Medical History: diabetic retinopathy. 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 History of Recent Travel: No Home Medications - Allergies Allergies/Adverse Reactions: Allergies Allergy/AdvReac Type Severity Reaction Status Date / Time No Known Allergies Allergy Verified 10/12/18 12:08 - Home Medications Home Medications: Ambulatory Orders Insulin Aspart [Novolog] 10 unit SQ TIDCM 10/31/17 Insulin Glargine,Hum.rec.anlog [Lantus] 30 unit SQ HS 10/31/17 Aspirin [ASA -] 81 mg PO DAILY 11/05/17 Lisinopril [Prinivil] 10 mg PO DAILY #30 tablet 11/05/17 Simvastatin 10 mg PO DAILY 10/12/18 metFORMIN HCL [Metformin ER Osmotic] 1,000 mg PO DAILY 10/12/18 Family Disease History - Family Disease History Family Disease History: Diabetes: Father (esophageal), Mother, Heart Disease: Grandparent, CA: Father Review of Systems - Review of Systems Constitutional: reports: Chills Eyes: reports: No Symptoms HENT: reports: No Symptoms Neck: reports: No Symptoms Cardiovascular: reports: No Symptoms Respiratory: reports: No Symptoms Gastrointestinal: reports: Nausea, Vomiting Genitourinary: reports: No Symptoms Musculoskeletal: reports: Other (foot pain- right) Neurological: reports: No Symptoms Physical Exam Vital Signs: Vital Signs Temperature 98.8 F 10/13/18 05:00 Pulse Rate 91 H 10/13/18 05:00 Respiratory Rate 16 10/13/18 05:00 Blood Pressure 147/72 10/13/18 05:00 O2 Sat by Pulse Oximetry (%) 100 10/12/18 17:00 Constitutional: Yes: Well Nourished, No Distress, Calm Eyes: Yes: Conjunctiva Clear HENT: Yes: Atraumatic, Normocephalic Neck: Yes: Supple, Trachea Midline Cardiovascular: Yes: Regular Rate and Rhythm Respiratory: Yes: Regular, CTA Bilaterally Gastrointestinal: Yes: Normal Bowel Sounds, Soft ...Rectal Exam: Yes: Deferred Renal/: Yes: WNL Extremities: Yes: Other (unable to examine right foot- dressing intact) Psychiatric: Yes: Alert, Oriented Labs: CBC, BMP 10/13/18 06:30 10/13/18 06:17 Microbiology 10/12/18 12:52 Foot - Right Plantar Gram Stain - Final 10/12/18 12:52 Foot - Right Plantar Wound Culture - Preliminary Staphylococcus Latex Coag Pos Laboratory Tests 10/13/18 06:30 Hemoglobin A1c % 6.6 H Imaging - Results X-ray: Report Reviewed (foreighn body base third toe) Problem List - Problems (1) Diabetic foot infection Code(s): E11.628 - TYPE 2 DIABETES MELLITUS WITH OTHER SKIN COMPLICATIONS; L08.9 - LOCAL INFECTION OF THE SKIN AND SUBCUTANEOUS TISSUE, UNSP (2) Foreign body (FB) in soft tissue Code(s): M79.5 - RESIDUAL FOREIGN BODY IN SOFT TISSUE (3) ANDREINA (acute kidney injury) Code(s): N17.9 - ACUTE KIDNEY FAILURE, UNSPECIFIED Assessment/Plan removal of foreign body and drainge of pus this am right foot continue zosyn will add one dose vancomycin and follow given patient's ANDREINA wound culture with coag positive staph ID pending f/u cultures in am d/w hospitalist
[2018-10-13] MEDS ORDERED: VANCOMYCIN 1 GRAM (PRE-DOCKED) 1,000 MG/250 ML BAG IVPB ONE (11:30)
--- NOTE | 2018-10-13 11:42 | EKG ---
Test Reason : Blood Pressure : / mmHG Vent. Rate : 094 BPM Atrial Rate : 094 BPM P-R Int : 176 ms QRS Dur : 074 ms QT Int : 340 ms P-R-T Axes : 054 045 032 degrees QTc Int : 425 ms NORMAL SINUS RHYTHM NORMAL ECG WHEN COMPARED WITH ECG OF 30-OCT-2017 21:39, NO SIGNIFICANT CHANGE WAS FOUND Confirmed by PAUL WOODALL MD ([id number]) on 10/13/2018 11:41:35 AM Referred By: Confirmed By:PAUL WOODALL MD
[2018-10-13] MEDS: ACETAMINOPHEN 325 MG TABLET (FP) PO PRN (14:12)
[2018-10-13] MEDS: POLYETHYLENE GLYCOL 3350 119 GM BTL PO SCH (16:55)
[2018-10-13] MEDS: INSULIN (LEVEMIR) 100 UNITS/ML UNITS SQ SCH (22:09)
[2018-10-13] MEDS: ATORVASTATIN CA 10 MG TABLET (FP) PO SCH (22:09)
[2018-10-14] MEDS: ACETAMINOPHEN 325 MG TABLET (FP) PO PRN (02:10)
[2018-10-14] MEDS: HEPARIN NA (PORCINE) 5,000 UNITS/ML 1ML VIAL SQ SCH ×3 (05:23→22:19)
[2018-10-14] MEDS: INSULIN SLIDING SCALE (NOVOLOG) 1 VIAL SQ SCH ×4 (06:52→22:19)
[2018-10-14] MEDS: SODIUM CHLORIDE 1,000 ML IV SCH (07:59)
--- NOTE | 2018-10-14 08:24 | PN ---
Physical Exam: SUBJECTIVE: Patient seen and examined resting in bed nad. afebrile hemodynamically stable. no acute events. minimal pain in rle, was able to ambulate, denies f/c, weakness OBJECTIVE: Vital Signs Period Temp Pulse Resp BP Sys/Coffey Pulse Ox Last 24 Hr 98.5 F-100.4 F 71-93 16-20 132-152/69-77 100-100 GENERAL: The patient is awake, alert, and fully oriented, in no acute distress. HEAD: Normal with no signs of trauma. EYES: sclera anicteric, conjunctiva clear. No ptosis. ENT: moist mucous membranes. NECK: supple. LUNGS: Breath sounds equal, clear to auscultation bilaterally HEART: Regular rate and rhythm, S1, S2 ABDOMEN: Soft, nontender, nondistended, normoactive bowel sounds, no guarding, no rebound EXTREMITIES: 2+ pulses, warm, well-perfused, RLE clean dressing intact. R foot packing in wound, no erythema NEUROLOGICAL: Cranial nerves II through XII grossly intact. Normal speech, gait not observed. PSYCH: Normal mood, normal affect. SKIN: Warm, dry Laboratory Results - last 24 hr 10/13/18 10/13/18 10/13/18 06:30 11:37 16:03 Plt Count 243 POC Glucometer 188 272 10/13/18 10/14/18 21:05 05:19 Plt Count POC Glucometer 301 89 Active Medications Generic Name Dose Route Start Last Admin Trade Name Freq PRN Reason Stop Dose Admin Acetaminophen 650 mg 10/12/18 15:47 10/14/18 02:10 Tylenol - PO 650 mg Q6H PRN Administration FEVER Aspirin 81 mg 10/13/18 10:00 10/13/18 10:37 Asa - PO 81 mg DAILY ARY Administration Atorvastatin Calcium 10 mg 10/13/18 22:00 10/13/18 22:09 Lipitor - PO 10 mg HS ARY Administration Heparin Sodium (Porcine) 5,000 unit 10/12/18 22:00 10/14/18 05:23 Heparin - SQ Not Given TID ARY Sodium Chloride 1,000 mls @ 100 mls/hr 10/12/18 16:00 10/14/18 07:59 Normal Saline - IV 100 mls/hr ASDIR ARY Administration Insulin Aspart 1 vial 10/12/18 16:30 10/14/18 06:52 Novolog Vial Sliding Scale - SQ Not Given ACHS [facility] Protocol Insulin Detemir 20 units 10/12/18 22:00 10/13/18 22:09 Levemir Vial SQ 20 units HS ARY Administration Ondansetron HCl 4 mg 10/12/18 15:52 Zofran Injection IVPUSH Q6H PRN NAUSEA Pantoprazole Sodium 40 mg 10/13/18 10:00 10/13/18 10:37 Protonix - PO 40 mg DAILY ARY Administration Polyethylene Glycol 17 gm 10/13/18 14:15 10/13/18 16:55 Miralax (For Daily Use) - PO 17 gm DAILY ARY Administration ASSESSMENT/PLAN: This is a 48 yo M with PMH of IDDM, HTN, HLD, R foot osteomyelitis 10/2017 s/p excisional debridement with Dr. Torres and PICC mallika mosley, presenting here s/p stepping on glass and developing infection in RLE. Sepsis due to R foot abscess due to foreign body (glass) POD 0 s/o I and D ANDREINA IDDM HTN HLD -s/p debridement yesterday -continue zosyn day 3, and vanco f/u ID recs -wound culture mssa -ISS, bgm ACHS, lantus 20 hs; hold metformin; a1c 6.6. -BGm goal <180 for dieabetic foot. evening glucose has been 270-300, required 14 u novolog over 24 hr, will add levemir 7 am -andreina improving, creat 1.5 (baseline 1.2) likely due to poor PO intake/ dehydration. hold AceI -continue lipitor 10 hs -hep ppx Problem List - Problems (1) ANDREINA (acute kidney injury) Code(s): N17.9 - ACUTE KIDNEY FAILURE, UNSPECIFIED (2) Diabetic foot infection Code(s): E11.628 - TYPE 2 DIABETES MELLITUS WITH OTHER SKIN COMPLICATIONS; L08.9 - LOCAL INFECTION OF THE SKIN AND SUBCUTANEOUS TISSUE, UNSP (3) Foreign body (FB) in soft tissue Code(s): M79.5 - RESIDUAL FOREIGN BODY IN SOFT TISSUE (4) Uncontrolled diabetes mellitus Code(s): E11.65 - TYPE 2 DIABETES MELLITUS WITH HYPERGLYCEMIA (5) Wound infection Code(s): T14.8XXA - OTHER INJURY OF UNSPECIFIED BODY REGION, INITIAL ENCOUNTER; L08.9 - LOCAL INFECTION OF THE SKIN AND SUBCUTANEOUS TISSUE, UNSP Visit type - Emergency Visit Emergency Visit: Yes ED Registration Date: 10/12/18 Care time: The patient presented to the Emergency Department on the above date and was hospitalized for further evaluation of their emergent condition. - New Patient This patient is new to me today: No - Critical Care Critical Care patient: No - Discharge Referral Referred to [facility] Med P.C.: No
--- NOTE | 2018-10-14 08:43 | PN ---
Progress Note (short form) - Note Progress Note: Pt seen and examined. States he is feeling well. Pain is controlled. Has been ambulating to the restroom without issue. Tolerating PO. Denies cp/sob, n/v/d. Vital Signs Temp 98.7 F 10/14/18 08:02 Pulse 77 10/14/18 08:02 Resp 20 10/14/18 08:02 BP 138/77 10/14/18 08:02 Pulse Ox 100 10/13/18 21:00 Intake & Output 10/13/18 10/13/18 10/14/18 11:59 23:59 11:59 Intake Total 1900 1140 Balance 1900 1140 Intake: IV 700 900 Normal Saline - 1,000 ml 700 900 @ 100 mls/hr IV ASDIR ARY Rx#:[id number] IVPB 350 Oral 850 240 Other: Voiding Method Toilet Toilet # Unmeasured Voids Void 1 Bowel Movement No CBC, BMP 10/13/18 06:30 10/13/18 06:17 Gen: awake, alert, nad Resp: Unlabored on RA Extremities: Right foot with dressing c/d/i. Minimal serosanguinous drainage on 4x4, packing removed. Wound bed granular, no fibrinous exudate, scant serous drainage. No surrounding erythema. No foul odor. No ttp. Wound irrigated with 10cc NS. Repacked with Iodoform, covered with 4x4 and kerlix. A/P: 48 y/o M w/ PMHx IDDM, HTN, HLD, right foot osteomyelitis in 10/2017, s/p excisional debridement/PICC line, now admitted 10/12 with right foot infection after stepping on possible broken glass, now s/p bedside I&D/removal of FB on . Febrile overnight to 100.4F, remainder of VSS Wound improving -Continue abx per ID -Strict glucose control -Offloading to forefoot with ambulation -Daily dressing changes (will remove packing tomorrow) Home dressings will be Bactroban ointment and 4x4s/kerlix -will continue to follow dNildaw attending Dr Torres
[2018-10-14] MEDS ORDERED: VANCOMYCIN 1 GRAM (PRE-DOCKED) 1,000 MG/250 ML BAG IVPB SCH (10:00)
[2018-10-14] MEDS ORDERED: PIPERACILLIN/TAZOB 3.375 GM 3.375 GM in DEXTROSE 5%-WATER - 50 ML IVPB SCH (10:00)
[2018-10-14 10:28] LABS: BASO % 0.2 % (0-2.0); EOS % 1.1 % (0-4.5); HEMATOCRIT 31.9 % (35.4-49); HEMOGLOBIN 10.7 GM/dL (11.7-16.9); LYMPH % 20.4 % (8-40); MCH 28.5 pg (25.7-33.7); MCHC 33.7 g/dl (32.0-35.9); MEAN CELL VOLUME 84.6 fl (80-96); MONO % 10.5 % (3.8-10.2); NEUT % 67.8 % (42.8-82.8); PLATELET COUNT 279 K/MM3 (134-434); RBC 3.77 M/mm3 (4.00-5.60); RDW 13.2 % (11.9-15.9); WHITE BLOOD COUNT 12.9 K/mm3 (4.0-10.0)
[2018-10-14] MEDS ORDERED: INSULIN (NOVOLOG) ASPART 100 UNITS/ML 10ML VIAL ONE (10:33)
[2018-10-14] MEDS ORDERED: PIPERACILLIN/TAZOBACTAM 3.375 GM VIAL IVPB ONE (10:34)
[2018-10-14] MEDS ORDERED: DEXTROSE 5%-WATER - 50 ML IVPB ONE (10:34)
[2018-10-14] MEDS ORDERED: PT OWN MED DRAWER 7, Y5N ONE (10:34)
[2018-10-14] MEDS: INSULIN (LEVEMIR) 100 UNITS/ML UNITS SQ SCH ×2 (10:38→22:18)
[2018-10-14] MEDS: PANTOPRAZOLE 40 MG TABLET (FP) PO SCH (10:39)
[2018-10-14] MEDS: ASPIRIN 81 MG CHEWABLE TABLETS PO SCH (10:39)
[2018-10-14] MEDS: POLYETHYLENE GLYCOL 3350 119 GM BTL PO SCH (10:42)
--- NOTE | 2018-10-14 11:14 | PN ---
Teaching Attending Note Name of Resident: Maryuri Marinelli ATTENDING PHYSICIAN STATEMENT I saw and evaluated the patient. I reviewed the resident's note and discussed the case with the resident. I agree with the resident's findings and plan as documented with exceptions below. SUBJECTIVE: Patient seen and examined, no foot pain. Reports was under a few blankets when had the low grade fever. Overall feels well. OBJECTIVE: Vital Signs Period Temp Pulse Resp BP Sys/Coffey Pulse Ox Last 24 Hr 98.5 F-100.4 F 71-93 16-20 132-152/69-77 100 Intake & Output 10/11/18 10/12/18 10/13/18 10/14/18 23:59 23:59 23:59 23:59 Intake Total 350 1900 1365 Balance 350 1900 1365 Weight 177 lb 11.2 oz General: Sitting in bed in no acute distress Chest: CTAB, no rales or wheezing Abdomen:Soft, NT, nD Extremities: right nasal wound with packing, no surrounding erythema/tenderness or discharge noted, overall clean and well healing wound Home Medications Medication Instructions Recorded Insulin Aspart [Novolog] 10 unit SQ TIDCM 10/31/17 Insulin Glargine,Hum.rec.anlog 30 unit SQ HS 10/31/17 [Lantus] Aspirin [ASA -] 81 mg PO DAILY 11/05/17 Lisinopril [Prinivil] 10 mg PO DAILY #30 tablet 11/05/17 Simvastatin 10 mg PO DAILY 10/12/18 metFORMIN HCL [Metformin ER 1,000 mg PO DAILY 10/12/18 Osmotic] Active Medications Acetaminophen (Tylenol -) 650 mg PO Q6H PRN PRN Reason: FEVER Last Admin: 10/14/18 02:10 Dose: 650 mg Aspirin (Asa -) 81 mg PO DAILY [facility] Last Admin: 10/14/18 10:39 Dose: 81 mg Atorvastatin Calcium (Lipitor -) 10 mg PO HS [facility] Last Admin: 10/13/18 22:09 Dose: 10 mg Heparin Sodium (Porcine) (Heparin -) 5,000 unit SQ TID [facility] Last Admin: 10/14/18 05:23 Dose: Not Given Sodium Chloride (Normal Saline -) 1,000 mls @ 100 mls/hr IV ASDIR [facility] Last Admin: 10/14/18 07:59 Dose: 100 mls/hr Piperacillin Sod/Tazobactam (Sod 3.375 gm/ Dextrose) 50 mls @ 100 mls/hr IVPB Q8H-IV ARY; Protocol Last Admin: 10/14/18 10:46 Dose: 100 mls/hr Vancomycin HCl (Vancomycin (Pre-Docked)) 1,000 mg in 250 mls @ 166.667 mls/hr IVPB BID [facility]; Protocol Last Admin: 10/14/18 10:45 Dose: 166.667 mls/hr Insulin Aspart (Novolog Vial Sliding Scale -) 1 vial SQ ACHS [facility]; Protocol Last Admin: 10/14/18 06:52 Dose: Not Given Insulin Detemir (Levemir Vial) 20 units SQ HS [facility] Last Admin: 10/13/18 22:09 Dose: 20 units Insulin Detemir (Levemir Vial) 7 units SQ DAILY@0700 [facility] Last Admin: 10/14/18 10:38 Dose: 7 units Ondansetron HCl (Zofran Injection) 4 mg IVPUSH Q6H PRN PRN Reason: NAUSEA Pantoprazole Sodium (Protonix -) 40 mg PO DAILY [facility] Last Admin: 10/14/18 10:39 Dose: 40 mg Polyethylene Glycol (Miralax (For Daily Use) -) 17 gm PO DAILY [facility] Last Admin: 10/14/18 10:42 Dose: 17 gm Laboratory Results - last 24 hr 10/13/18 10/13/18 10/13/18 06:30 11:37 16:03 WBC RBC Hgb Hct MCV MCH MCHC RDW Plt Count 243 MPV Absolute Neuts (auto) Neutrophils % Lymphocytes % Monocytes % Eosinophils % Basophils % Nucleated RBC % POC Glucometer 188 272 10/13/18 10/14/18 10/14/18 21:05 05:19 09:25 WBC 12.9 H RBC 3.77 L Hgb 10.7 L Hct 31.9 L MCV 84.6 MCH 28.5 MCHC 33.7 RDW 13.2 Plt Count 279 MPV 9.0 Absolute Neuts (auto) 8.8 H Neutrophils % 67.8 Lymphocytes % 20.4 Monocytes % 10.5 H Eosinophils % 1.1 D Basophils % 0.2 Nucleated RBC % 0 POC Glucometer 301 89 Microbiology 10/13/18 08:45 Foot - Right Plantar Gram Stain - Final 10/13/18 08:45 Foot - Right Plantar Wound Culture - Preliminary Presumptive Mssa (Pbp2a Neg) 10/12/18 12:52 Blood - Blood Bank Unit Blood Culture - Preliminary NO GROWTH OBTAINED AFTER 24 HOURS, INCUBATION TO CONTINUE FOR 4 DAYS. 10/12/18 12:52 Blood - Blood Bank Unit Blood Culture - Preliminary NO GROWTH OBTAINED AFTER 24 HOURS, INCUBATION TO CONTINUE FOR 4 DAYS. 10/12/18 12:52 Foot - Right Plantar Gram Stain - Final 10/12/18 12:52 Foot - Right Plantar Wound Culture - Preliminary Staphylococcus Latex Coag Pos ASSESSMENT AND PLAN: 48 yom with PMHX of IDDM, HTN, HLD, right foot osteomyelitis in 10/2017, s/p excisional debridement with Dr. Torres, s/p extended course of IV ceftriaxone, via PICC line, admitted with right foot infection/abscess likely from foreign body/glass with sepsis and ANDREINA. -Right foot MSSA infection/abscess secondary to glass shard, with sepsis s/p removal/I&D and foreign body removal 10/13 -ANDREINA, suspect from poor oral intake/Hyperglycemia with associated dehydration+/ - ACEi -Hyperglycemia/IDDM -HTN -HLD -H/o right foot osteomyelitis in 10/2017, s/p excisional debridement with Dr. Torres, s/p extended course of IV ceftriaxone, via PICC line Plan: Surgery input noted. Plan for packing removal tomorrow. Wound cx noted. Low grade temp overnight. WBC unchanged. ID input noted. Zosyn, will discuss taper and transition to PO in 24 hours if doing well. Followup renal function today. Hold lisinopril. IVF, d/c if renal function stable today. Lantus 20 units hs, ISS. A1c noted. Resume home regimen per PO intake and blood sugar readings. Continue statin DVTPPX heparin PT eval, off loading right foot. Dispo dc in 24 hours on PO abx if continues to improve. Plan discussed with patient and nursing in detail, all questions answered.
[2018-10-14 11:41] LABS: CALCIUM 8.5 mg/dL (8.5-10.1); CREATININE 1.5 mg/dL (0.55-1.3); POTASSIUM 4.3 mmol/L (3.5-5.1)
[2018-10-14 15:11] VITALS: BMI 28.5
--- NOTE | 2018-10-14 15:22 | PN ---
Progress Note (short form) - Note Progress Note: foot examined low grade temp Vital Signs Period Temp Pulse Resp BP Sys/Coffey Pulse Ox Last 24 Hr 98.5 F-100.4 F 71-92 16-20 128-151/69-77 100-100 cor-rrr lungs clear right foot- some erythema along the plantar aspect, packing removed wound is clean CBC, BMP 10/14/18 09:25 10/14/18 09:25 Microbiology 10/12/18 12:52 Blood - Blood Bank Unit Blood Culture - Preliminary NO GROWTH OBTAINED AFTER 48 HOURS, INCUBATION TO CONTINUE FOR 3 DAYS. 10/12/18 12:52 Blood - Blood Bank Unit Blood Culture - Preliminary NO GROWTH OBTAINED AFTER 48 HOURS, INCUBATION TO CONTINUE FOR 3 DAYS. 10/12/18 12:52 Foot - Right Plantar Gram Stain - Final 10/12/18 12:52 Foot - Right Plantar Wound Culture - Final Staphylococcus Aureus 10/13/18 08:45 Foot - Right Plantar Gram Stain - Final 10/13/18 08:45 Foot - Right Plantar Wound Culture - Preliminary Presumptive Mssa (Pbp2a Neg) a/p s/p drainage of plantar abscess , removal of glass from foot diabetes history of prior osteomyelitis check esr/crp switch to ancef MRI foot -if negative can transition to po antibiotics in am Problem List - Problems (1) Diabetic foot infection Code(s): E11.628 - TYPE 2 DIABETES MELLITUS WITH OTHER SKIN COMPLICATIONS; L08.9 - LOCAL INFECTION OF THE SKIN AND SUBCUTANEOUS TISSUE, UNSP (2) Foreign body (FB) in soft tissue Code(s): M79.5 - RESIDUAL FOREIGN BODY IN SOFT TISSUE (3) ANDREINA (acute kidney injury) Code(s): N17.9 - ACUTE KIDNEY FAILURE, UNSPECIFIED
[2018-10-14] MEDS: CEFAZOLIN 2 GM/D5W 2 GM/50 ML ML IVPB SCH (18:28)
[2018-10-14] MEDS: ATORVASTATIN CA 10 MG TABLET (FP) PO SCH (22:19)
[2018-10-15] MEDS: CEFAZOLIN 2 GM/D5W 2 GM/50 ML ML IVPB SCH ×3 (03:00→18:04)
[2018-10-15] MEDS: HEPARIN NA (PORCINE) 5,000 UNITS/ML 1ML VIAL SQ SCH ×3 (05:55→21:29)
[2018-10-15] MEDS: INSULIN SLIDING SCALE (NOVOLOG) 1 VIAL SQ SCH ×4 (06:23→21:22)
[2018-10-15] MEDS ORDERED: INSULIN (LEVEMIR) 100 UNITS/ML UNITS SQ ONE (06:36)
[2018-10-15] MEDS: INSULIN (LEVEMIR) 100 UNITS/ML UNITS SQ SCH ×2 (06:48→21:26)
[2018-10-15 08:01] LABS: BLOOD UREA NITROGEN 14.6 mg/dL (7-18); CALCIUM 8.4 mg/dL (8.5-10.1); CREATININE 1.4 mg/dL (0.55-1.3); POTASSIUM 4.1 mmol/L (3.5-5.1)
[2018-10-15 08:58] LABS: BASO % 0.3 % (0-2.0); EOS % 1.3 % (0-4.5); HEMATOCRIT 29.5 % (35.4-49); HEMOGLOBIN 9.9 GM/dL (11.7-16.9); LYMPH % 24.9 % (8-40); MCH 28.3 pg (25.7-33.7); MCHC 33.7 g/dl (32.0-35.9); MONO % 11.1 % (3.8-10.2); NEUT % 62.4 % (42.8-82.8); PLATELET COUNT 270 K/MM3 (134-434); RBC 3.51 M/mm3 (4.00-5.60); RDW 13.3 % (11.9-15.9); WHITE BLOOD COUNT 10.2 K/mm3 (4.0-10.0)
[2018-10-15] MEDS: SODIUM CHLORIDE 1,000 ML IV SCH (09:37)
[2018-10-15] MEDS: POLYETHYLENE GLYCOL 3350 119 GM BTL PO SCH (09:38)
[2018-10-15] MEDS: PANTOPRAZOLE 40 MG TABLET (FP) PO SCH (09:38)
[2018-10-15] MEDS: ASPIRIN 81 MG CHEWABLE TABLETS PO SCH (09:38)
--- NOTE | 2018-10-15 10:44 | PN ---
Teaching Attending Note Name of Resident: Maryuri Marinelli ATTENDING PHYSICIAN STATEMENT I saw and evaluated the patient. I reviewed the resident's note and discussed the case with the resident. I agree with the resident's findings and plan as documented. SUBJECTIVE: Mr Venegas is without complaint. Denies cp, sob, n/v. OBJECTIVE: Last Vital Signs Temp Pulse Resp BP Pulse Ox 37.5 C 83 20 149/79 98 10/15/18 05:53 10/15/18 05:53 10/15/18 05:53 10/15/18 05:53 10/14/18 21:00 Gen: nad Pulm: ctab w/o w/r/r CV: rrr w/o m/r/g Abd: +bs, s/nt/nd Ext: no c/c/e CBC, BMP 10/15/18 06:10 10/15/18 06:05 ASSESSMENT AND PLAN: Problem List - Problems (1) Diabetic foot infection Assessment/Plan: -appreciate ID assistance -continue cefazolin -MRI pending -if negative, can finish course with po antibiotics as an outpatient Code(s): E11.628 - TYPE 2 DIABETES MELLITUS WITH OTHER SKIN COMPLICATIONS; L08.9 - LOCAL INFECTION OF THE SKIN AND SUBCUTANEOUS TISSUE, UNSP (2) Foreign body (FB) in soft tissue Assessment/Plan: -removed Code(s): M79.5 - RESIDUAL FOREIGN BODY IN SOFT TISSUE (3) ANDREINA (acute kidney injury) Assessment/Plan: -improving -on IVF -holding ACEI -can restart ACEI as an outpatient with close follow up Code(s): N17.9 - ACUTE KIDNEY FAILURE, UNSPECIFIED (4) Uncontrolled diabetes mellitus Assessment/Plan: -continue current regimen Code(s): E11.65 - TYPE 2 DIABETES MELLITUS WITH HYPERGLYCEMIA (5) HTN (hypertension) Assessment/Plan: -can restart ACEI as an outpatient Code(s): I10 - ESSENTIAL (PRIMARY) HYPERTENSION (6) HLD (hyperlipidemia) Assessment/Plan: -continue statin Code(s): E78.5 - HYPERLIPIDEMIA, UNSPECIFIED
[2018-10-15] MEDS: ACETAMINOPHEN 325 MG TABLET (FP) PO PRN ×2 (12:00→22:06)
--- NOTE | 2018-10-15 13:24 | PN ---
Progress Note (short form) - Note Progress Note: Pt seen and examined. States he is feeling well. Pain is controlled. Has been ambulating to the restroom without issue. Tolerating PO. Denies cp/sob, n/v/d. Vital Signs Temp 99.5 F 10/15/18 05:53 Pulse 83 10/15/18 05:53 Resp 20 10/15/18 05:53 BP 149/79 10/15/18 05:53 Pulse Ox 98 10/14/18 21:00 Intake & Output 10/14/18 10/15/18 10/15/18 23:59 11:59 23:59 Intake Total 1875 1175 Balance 1875 1175 Weight 177 lb Intake: IV 650 900 Normal Saline - 1,000 ml 650 900 @ 100 mls/hr IV ASDIR ARY Rx#:[id number] IVPB 350 50 Oral 875 225 Other: Voiding Method Toilet Toilet # Unmeasured Voids Void 300 Bowel Movement No # Bowel Movements 1 Height 5 ft 6 in Body Mass Index (BMI) 28.5 CBC, BMP 10/15/18 06:10 10/15/18 06:05 Gen: awake, alert, nad Resp: Unlabored on RA Extremities: Right foot with dressing c/d/i. Minimal serosanguinous drainage on 4x4, packing removed. Wound bed granular, no fibrinous exudate, scant serous drainage. No foul odor. No ttp. New blanching erythema extending from just below wound tracking to medial aspect of foot. Wound irrigated with 10cc NS. Repacked with Iodoform, covered with 4x4 and kerlix. A/P: 48 y/o M w/ PMHx IDDM, HTN, HLD, right foot osteomyelitis in 10/2017, s/p excisional debridement/PICC line, now admitted 10/12 with right foot infection after stepping on possible broken glass, now s/p bedside I&D/removal of FB on . Afebrile, vss. L foot with new erythema tracking to mid foot -Awaiting MRI -Continue abx per ID -Strict glucose control -Offloading to forefoot with ambulation -Daily dressing changes by PA Siri to see pt -will continue to follow dNildaw attending Dr Torres
--- NOTE | 2018-10-15 14:44 | PN ---
Physical Exam: SUBJECTIVE: Patient seen and examined resting in bed nad. afebrile hemodynamically stable. no acute events. minimal pain in rle, was able to ambulate, denies f/c, weakness OBJECTIVE: Vital Signs Period Temp Pulse Resp BP Sys/Coffey Pulse Ox Last 24 Hr 98.7 F-99.5 F 80-83 20-20 130-149/79-80 98 GENERAL: The patient is awake, alert, and fully oriented, in no acute distress. HEAD: Normal with no signs of trauma. EYES: sclera anicteric, conjunctiva clear. No ptosis. ENT: moist mucous membranes. NECK: supple. LUNGS: Breath sounds equal, clear to auscultation bilaterally HEART: Regular rate and rhythm, S1, S2 ABDOMEN: Soft, nontender, nondistended, normoactive bowel sounds, no guarding, no rebound EXTREMITIES: 2+ pulses, warm, well-perfused, RLE clean dressing intact. R foot packing in wound, +erythema and tenderness on plantar aspect near the wound NEUROLOGICAL: Cranial nerves II through XII grossly intact. Normal speech, gait not observed. PSYCH: Normal mood, normal affect. SKIN: Warm, dry Laboratory Results - last 24 hr 10/14/18 10/14/18 10/15/18 17:03 21:19 05:38 WBC RBC Hgb Hct MCV MCH MCHC RDW Plt Count MPV Absolute Neuts (auto) Neutrophils % Lymphocytes % Monocytes % Eosinophils % Basophils % Nucleated RBC % ESR Sodium Potassium Chloride Carbon Dioxide Anion Gap BUN Creatinine Est GFR (CKD-EPI)AfAm Est GFR (CKD-EPI)NonAf POC Glucometer 264 289 59 Random Glucose Calcium C-Reactive Protein 10/15/18 10/15/18 10/15/18 06:05 06:05 06:10 WBC 10.2 H RBC 3.51 L Hgb 9.9 L Hct 29.5 L MCV 84.0 MCH 28.3 MCHC 33.7 RDW 13.3 Plt Count 270 MPV 9.0 Absolute Neuts (auto) 6.4 Neutrophils % 62.4 Lymphocytes % 24.9 D Monocytes % 11.1 H Eosinophils % 1.3 Basophils % 0.3 Nucleated RBC % 0 ESR 86 H Sodium 143 Potassium 4.1 Chloride 109 H Carbon Dioxide 26 Anion Gap 8 BUN 14.6 Creatinine 1.4 H Est GFR (CKD-EPI)AfAm 68.85 Est GFR (CKD-EPI)NonAf 59.41 POC Glucometer Random Glucose 75 Calcium 8.4 L C-Reactive Protein 11.1 H 10/15/18 11:54 WBC RBC Hgb Hct MCV MCH MCHC RDW Plt Count MPV Absolute Neuts (auto) Neutrophils % Lymphocytes % Monocytes % Eosinophils % Basophils % Nucleated RBC % ESR Sodium Potassium Chloride Carbon Dioxide Anion Gap BUN Creatinine Est GFR (CKD-EPI)AfAm Est GFR (CKD-EPI)NonAf POC Glucometer 115 Random Glucose Calcium C-Reactive Protein Active Medications Generic Name Dose Route Start Last Admin Trade Name Freq PRN Reason Stop Dose Admin Acetaminophen 650 mg 10/12/18 15:47 10/15/18 12:00 Tylenol - PO 650 mg Q6H PRN Administration FEVER Aspirin 81 mg 10/13/18 10:00 10/15/18 09:38 Asa - PO 81 mg DAILY ARY Administration Atorvastatin Calcium 10 mg 10/13/18 22:00 10/14/18 22:19 Lipitor - PO 10 mg HS ARY Administration Heparin Sodium (Porcine) 5,000 unit 10/12/18 22:00 10/15/18 05:55 Heparin - SQ Not Given TID ARY Sodium Chloride 1,000 mls @ 100 mls/hr 10/12/18 16:00 10/15/18 09:37 Normal Saline - IV 100 mls/hr ASDIR ARY Administration Cefazolin Sodium/Dextrose 2 gm in 50 mls @ 100 mls/hr 10/14/18 18:00 09:37 Ancef 2 Gm Premixed Ivpb - IVPB 100 mls/hr Q8H-IV ARY Administration Insulin Aspart 1 vial 10/12/18 16:30 10/15/18 11:59 Novolog Vial Sliding Scale - SQ Not Given ACHS [facility] Protocol Insulin Detemir 20 units 10/12/18 22:00 10/14/18 22:18 Levemir Vial SQ 20 units HS ARY Administration Insulin Detemir 7 units 10/14/18 09:30 10/15/18 06:48 Levemir Vial SQ Not Given DAILY@0700 ARY Ondansetron HCl 4 mg 10/12/18 15:52 Zofran Injection IVPUSH Q6H PRN NAUSEA Pantoprazole Sodium 40 mg 10/13/18 10:00 10/15/18 09:38 Protonix - PO 40 mg DAILY ARY Administration Polyethylene Glycol 17 gm 10/13/18 14:15 10/15/18 09:38 Miralax (For Daily Use) - PO 17 gm DAILY ARY Administration ASSESSMENT/PLAN: This is a 48 yo M with PMH of IDDM, HTN, HLD, R foot osteomyelitis 10/2017 s/p excisional debridement with Dr. Torres and PICC abx melany, presenting here s/p stepping on glass and developing infection in RLE. Sepsis due to R foot abscess due to foreign body (glass) POD 0 s/o I and D DYLAN IDDM HTN HLD -s/p debridement yesterday -was on zosyn x3d now on ancef d1 bc culture shows staph aureus -ID consult appreciated, f/u MRI foot r/o osteo -ISS, bgm ACHS, lantus 20 hs; hold metformin; a1c 6.6. -BGm goal <180 for dieabetic foot. evening glucose has been 270-300, required 14 u novolog over 24 hr, will add levemir 7 am -dylna improving, creat 1.5 (baseline 1.2) likely due to poor PO intake/ dehydration. hold AceI -continue lipitor 10 hs -hep ppx Problem List - Problems (1) DYLAN (acute kidney injury) Code(s): N17.9 - ACUTE KIDNEY FAILURE, UNSPECIFIED (2) Diabetic foot infection Code(s): E11.628 - TYPE 2 DIABETES MELLITUS WITH OTHER SKIN COMPLICATIONS; L08.9 - LOCAL INFECTION OF THE SKIN AND SUBCUTANEOUS TISSUE, UNSP (3) Foreign body (FB) in soft tissue Code(s): M79.5 - RESIDUAL FOREIGN BODY IN SOFT TISSUE (4) Uncontrolled diabetes mellitus Code(s): E11.65 - TYPE 2 DIABETES MELLITUS WITH HYPERGLYCEMIA (5) Wound infection Code(s): T14.8XXA - OTHER INJURY OF UNSPECIFIED BODY REGION, INITIAL ENCOUNTER; L08.9 - LOCAL INFECTION OF THE SKIN AND SUBCUTANEOUS TISSUE, UNSP Visit type - Emergency Visit Emergency Visit: Yes ED Registration Date: 10/12/18 Care time: The patient presented to the Emergency Department on the above date and was hospitalized for further evaluation of their emergent condition. - New Patient This patient is new to me today: No - Critical Care Critical Care patient: No - Discharge Referral Referred to [facility] Med P.C.: No
--- NOTE | 2018-10-15 15:15 | PN ---
Progress Note (short form) - Note Progress Note: awaiting MRI Vital Signs Period Temp Pulse Resp BP Sys/Coffey Pulse Ox Last 24 Hr 98.7 F-99.5 F 80-83 20-20 130-149/79-80 98 dressing on foot a/p s/p drainage of plantar abscess , removal of glass from foot diabetes history of prior osteomyelitis check esr/crp switch to ancef MRI foot -if negative can transition to po antibiotics in am Problem List - Problems (1) Diabetic foot infection Code(s): E11.628 - TYPE 2 DIABETES MELLITUS WITH OTHER SKIN COMPLICATIONS; L08.9 - LOCAL INFECTION OF THE SKIN AND SUBCUTANEOUS TISSUE, UNSP (2) Foreign body (FB) in soft tissue Code(s): M79.5 - RESIDUAL FOREIGN BODY IN SOFT TISSUE (3) ANDREINA (acute kidney injury) Code(s): N17.9 - ACUTE KIDNEY FAILURE, UNSPECIFIED
[2018-10-15] MEDS ORDERED: INSULIN (NOVOLOG) ASPART 100 UNITS/ML 10ML VIAL ONE (16:45)
[2018-10-15] MEDS: ATORVASTATIN CA 10 MG TABLET (FP) PO SCH (21:22)
[2018-10-16] MEDS: CEFAZOLIN 2 GM/D5W 2 GM/50 ML ML IVPB SCH ×3 (02:19→17:29)
[2018-10-16] MEDS: HEPARIN NA (PORCINE) 5,000 UNITS/ML 1ML VIAL SQ SCH ×4 (06:39→22:00)
[2018-10-16] MEDS: INSULIN SLIDING SCALE (NOVOLOG) 1 VIAL SQ SCH ×4 (06:39→21:51)
[2018-10-16] MEDS: INSULIN (LEVEMIR) 100 UNITS/ML UNITS SQ SCH ×2 (06:39→21:51)
[2018-10-16 08:29] LABS: BLOOD UREA NITROGEN 12.8 mg/dL (7-18); CALCIUM 8.1 mg/dL (8.5-10.1); CREATININE 1.3 mg/dL (0.55-1.3); POTASSIUM 4.3 mmol/L (3.5-5.1)
--- NOTE | 2018-10-16 08:33 | PN ---
Progress Note (short form) - Note Progress Note: Pt seen and examined. States he is feeling well. Pain is controlled. Has been ambulating to the restroom without issue. Tolerating PO. Eagerly awaiting discharge. Denies cp/sob, n/v/d. Vital Signs Temp 98.8 F 10/16/18 08:22 Pulse 79 10/16/18 08:22 Resp 15 10/16/18 08:22 BP 160/82 10/16/18 08:22 Pulse Ox 99 10/15/18 21:00 Intake & Output 10/15/18 10/15/18 10/16/18 11:59 23:59 11:59 Intake Total 1175 2270 1490 Balance 1175 2270 1490 Intake: IV 156 903 7163 Normal Saline - 1,000 ml 311 759 6312 @ 100 mls/hr IV ASDIR ARY Rx#:[id number] IVPB 50 350 50 Oral 225 1070 240 Other: Voiding Method Toilet Toilet # Unmeasured Voids Void 2 2 Bowel Movement No # Bowel Movements 1 Gen: awake, alert, nad Resp: Unlabored on RA Extremities: Right foot dressing with minimal serosanguinous drainage. Wound bed with minimal fibrinous exudate, scant serous drainage. No foul odor. No ttp. Erythema extending from just below wound tracking to medial aspect of foot (stable from yesterday). Wound irrigated with 10cc NS. Repacked with Iodoform, covered with 4x4 and kerlix. A/P: 48 y/o M w/ PMHx IDDM, HTN, HLD, right foot osteomyelitis in 10/2017, s/p excisional debridement/PICC line, now admitted 10/12 with right foot infection after stepping on possible broken glass, now s/p bedside I&D/removal of FB on . Low grade fever 99.7 yesterday evening, vss. L foot with stable erythema tracking to mid foot MRI read pending -Awaiting MRI read -Labs pending -Continue abx per ID -Strict glucose control -Offloading to forefoot with ambulation -Daily dressing changes by JL Horner to see pt -will continue to follow UPDATE: MRI 10/15/18: 2.2cm abscess on the plantar aspect of the foot to below the proximal phalanx of the third toe with bone marrow changes within the proximal phalanx compatible with osteomyelitis. message sent to Dr Jean-Baptiste this morning regarding MRI read, will see pt today.
[2018-10-16 08:37] LABS: BASO % 0.3 % (0-2.0); EOS % 1.3 % (0-4.5); HEMATOCRIT 29.2 % (35.4-49); LYMPH % 19.5 % (8-40); MCH 28.7 pg (25.7-33.7); MCHC 34.3 g/dl (32.0-35.9); MEAN CELL VOLUME 83.6 fl (80-96); MEAN PLT VOLUME 8.6 fl (7.5-11.1); MONO % 10.7 % (3.8-10.2); NEUT % 68.2 % (42.8-82.8); RBC 3.49 M/mm3 (4.00-5.60); RDW 13.4 % (11.9-15.9); WHITE BLOOD COUNT 9.5 K/mm3 (4.0-10.0)
[2018-10-16 08:54] LABS: PLATELET COUNT 293 K/MM3 (134-434)
[2018-10-16] MEDS ORDERED: PT OWN MED DRAWER 7, Y5N ONE (10:21)
[2018-10-16] MEDS: ASPIRIN 81 MG CHEWABLE TABLETS PO SCH (10:23)
[2018-10-16] MEDS: POLYETHYLENE GLYCOL 3350 119 GM BTL PO SCH (10:23)
[2018-10-16] MEDS: PANTOPRAZOLE 40 MG TABLET (FP) PO SCH (10:23)
[2018-10-16] MEDS: ACETAMINOPHEN 325 MG TABLET (FP) PO PRN ×2 (10:28→17:59)
[2018-10-16] MEDS ORDERED: LISINOPRIL 10 MG TABLET (FP) PO SCH (11:30)
[2018-10-16] MEDS ORDERED: INSULIN (NOVOLOG) ASPART 100 UNITS/ML 10ML VIAL ONE (11:35)
--- NOTE | 2018-10-16 12:39 | CONSULT ---
Consult Consult Specialty:: Podiatry Reason for Consultation:: Cellulitis/Abscees/Osteomyelitis right foot - History of Present Illness History of Present Illness: Glass removed bedside 3 days ago. Patient noticed it last . - Past Medical History Cardio/Vascular: Yes: HTN, Hyperlipdemia Infectious Disease: Yes: Other (osteomyelitis of the left foot) Musculoskeletal: Yes: Other (diabetic foot ulcer ) Endocrine: Yes: Diabetes Mellitus Additional Medical History: diabetic retinopathy. 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 History of Recent Travel: No Home Medications - Allergies Allergies/Adverse Reactions: Allergies Allergy/AdvReac Type Severity Reaction Status Date / Time No Known Allergies Allergy Verified 10/12/18 12:08 - Home Medications Home Medications: Ambulatory Orders Insulin Aspart [Novolog] 10 unit SQ TIDCM 10/31/17 Insulin Glargine,Hum.rec.anlog [Lantus] 30 unit SQ HS 10/31/17 Aspirin [ASA -] 81 mg PO DAILY 11/05/17 Lisinopril [Prinivil] 10 mg PO DAILY #30 tablet 11/05/17 Simvastatin 10 mg PO DAILY 10/12/18 metFORMIN HCL [Metformin ER Osmotic] 1,000 mg PO DAILY 10/12/18 Mupirocin Ointment [Bactroban 2% Ointment -] 1 applic TP BID 14 Days #1 applic 10/14/18 Family Disease History - Family Disease History Family Disease History: Diabetes: Father (esophageal), Mother, Heart Disease: Grandparent, CA: Father Physical Exam Vital Signs: Vital Signs Temperature 98.8 F 10/16/18 08:22 Pulse Rate 79 10/16/18 08:22 Respiratory Rate 15 10/16/18 08:22 Blood Pressure 160/82 10/16/18 08:22 O2 Sat by Pulse Oximetry (%) 99 10/16/18 09:00 Extremities: Yes: Other (+om right foot, +cellulitis plantar right foot with drainage at incision site, -mal odor,+staph. aureus, +abscess 2.2mm plantar right foot,) Labs: CBC, BMP 10/16/18 07:40 10/16/18 07:40 Assessment/Plan Foreign Body Post op abscess/cellulitis/om Patients labs are improving. Continue IVABX. HGBA1C ordered. Post op shoe right. Will follow. No surgery at this time. Wound C&S done. Betadine to wound.
[2018-10-16] MEDS: SODIUM CHLORIDE 1,000 ML IV SCH ×2 (13:02→19:02)
--- NOTE | 2018-10-16 13:37 | PN ---
Teaching Attending Note Name of Resident: Maryuri Marinelli ATTENDING PHYSICIAN STATEMENT I saw and evaluated the patient. I reviewed the resident's note and discussed the case with the resident. I agree with the resident's findings and plan as documented. SUBJECTIVE: Mr Horn is without complaint. Denies cp, sob, n/v. OBJECTIVE: Last Vital Signs Temp Pulse Resp BP Pulse Ox 37.1 C 79 15 160/82 99 10/16/18 08:22 10/16/18 08:22 10/16/18 08:22 10/16/18 08:22 10/16/18 09:00 Gen: nad Pulm: ctab w/o w/r/r CV: rrr w/o m/r/g Abd: +bs, s/nt/nd Ext: no c/c/e CBC, BMP 10/16/18 07:40 10/16/18 07:40 ASSESSMENT AND PLAN: (1) Diabetic foot infection Assessment/Plan: -case d/w Dr Benavidez -MRI showing abscess and osteomyelitis -podiatry consulted -no surgical intervention recommended at this time -will need 4-6 weeks antibiotics -can use rocephin vs cefazolin Code(s): E11.628 - TYPE 2 DIABETES MELLITUS WITH OTHER SKIN COMPLICATIONS; L08.9 - LOCAL INFECTION OF THE SKIN AND SUBCUTANEOUS TISSUE, UNSP (2) Foreign body (FB) in soft tissue Assessment/Plan: -removed Code(s): M79.5 - RESIDUAL FOREIGN BODY IN SOFT TISSUE (3) ANDREINA (acute kidney injury) Assessment/Plan: -improving -restart ACEI Code(s): N17.9 - ACUTE KIDNEY FAILURE, UNSPECIFIED (4) Uncontrolled diabetes mellitus Assessment/Plan: -continue current regimen Code(s): E11.65 - TYPE 2 DIABETES MELLITUS WITH HYPERGLYCEMIA (5) HTN (hypertension) Assessment/Plan: -restart lisinopril today Code(s): I10 - ESSENTIAL (PRIMARY) HYPERTENSION (6) HLD (hyperlipidemia) Assessment/Plan: -continue statin Code(s): E78.5 - HYPERLIPIDEMIA, UNSPECIFIED Problem List - Problems (1) Diabetic foot infection Code(s): E11.628 - TYPE 2 DIABETES MELLITUS WITH OTHER SKIN COMPLICATIONS; L08.9 - LOCAL INFECTION OF THE SKIN AND SUBCUTANEOUS TISSUE, UNSP (2) Foreign body (FB) in soft tissue Code(s): M79.5 - RESIDUAL FOREIGN BODY IN SOFT TISSUE (3) ANDREINA (acute kidney injury) Code(s): N17.9 - ACUTE KIDNEY FAILURE, UNSPECIFIED (4) Uncontrolled diabetes mellitus Code(s): E11.65 - TYPE 2 DIABETES MELLITUS WITH HYPERGLYCEMIA (5) HTN (hypertension) Code(s): I10 - ESSENTIAL (PRIMARY) HYPERTENSION (6) HLD (hyperlipidemia) Code(s): E78.5 - HYPERLIPIDEMIA, UNSPECIFIED
--- NOTE | 2018-10-16 14:41 | PN ---
Physical Exam: SUBJECTIVE: Patient seen and examined resting in bed nad. afebrile hemodynamically stable. no acute events. minimal pain in rle, was able to ambulate, denies f/c, weakness OBJECTIVE: Vital Signs Period Temp Pulse Resp BP Sys/Coffey Pulse Ox Last 24 Hr 98.4 F-99.7 F 79-89 15-20 142-162/70-88 99-99 GENERAL: The patient is awake, alert, and fully oriented, in no acute distress. HEAD: Normal with no signs of trauma. EYES: sclera anicteric, conjunctiva clear. No ptosis. ENT: moist mucous membranes. NECK: supple. LUNGS: Breath sounds equal, clear to auscultation bilaterally HEART: Regular rate and rhythm, S1, S2 ABDOMEN: Soft, nontender, nondistended, normoactive bowel sounds, no guarding, no rebound EXTREMITIES: 2+ pulses, warm, well-perfused, RLE clean dressing intact. R foot packing in wound, +erythema and tenderness on plantar aspect near the wound NEUROLOGICAL: Cranial nerves II through XII grossly intact. Normal speech, gait not observed. PSYCH: Normal mood, normal affect. SKIN: Warm, dry Laboratory Results - last 24 hr 10/15/18 10/15/18 10/16/18 16:53 21:00 06:15 WBC RBC Hgb Hct MCV MCH MCHC RDW Plt Count MPV Absolute Neuts (auto) Neutrophils % Lymphocytes % Monocytes % Eosinophils % Basophils % Nucleated RBC % Sodium Potassium Chloride Carbon Dioxide Anion Gap BUN Creatinine Est GFR (CKD-EPI)AfAm Est GFR (CKD-EPI)NonAf POC Glucometer 237 303 93 Random Glucose Calcium 10/16/18 10/16/18 10/16/18 07:40 07:40 11:22 WBC 9.5 RBC 3.49 L Hgb 10.0 L Hct 29.2 L MCV 83.6 MCH 28.7 MCHC 34.3 RDW 13.4 Plt Count 293 MPV 8.6 Absolute Neuts (auto) 6.5 Neutrophils % 68.2 Lymphocytes % 19.5 D Monocytes % 10.7 H Eosinophils % 1.3 Basophils % 0.3 Nucleated RBC % 0 Sodium 142 Potassium 4.3 Chloride 108 H Carbon Dioxide 28 Anion Gap 6 L BUN 12.8 Creatinine 1.3 Est GFR (CKD-EPI)AfAm 75.31 Est GFR (CKD-EPI)NonAf 64.98 POC Glucometer 185 Random Glucose 98 Calcium 8.1 L Active Medications Generic Name Dose Route Start Last Admin Trade Name Freq PRN Reason Stop Dose Admin Acetaminophen 650 mg 10/12/18 15:47 10/16/18 10:28 Tylenol - PO 650 mg Q6H PRN Administration FEVER Aspirin 81 mg 10/13/18 10:00 10/16/18 10:23 Asa - PO 81 mg DAILY ARY Administration Atorvastatin Calcium 10 mg 10/13/18 22:00 10/15/18 21:22 Lipitor - PO 10 mg HS ARY Administration Heparin Sodium (Porcine) 5,000 unit 10/12/18 22:00 10/16/18 13:02 Heparin - SQ Not Given TID ARY Sodium Chloride 1,000 mls @ 100 mls/hr 10/12/18 16:00 10/16/18 13:02 Normal Saline - IV 100 mls/hr ASDIR ARY Administration Cefazolin Sodium/Dextrose 2 gm in 50 mls @ 100 mls/hr 10/14/18 18:00 10:24 Ancef 2 Gm Premixed Ivpb - IVPB 100 mls/hr Q8H-IV ARY Administration Insulin Aspart 1 vial 10/12/18 16:30 10/16/18 11:36 Novolog Vial Sliding Scale - SQ 2 units ACHS ARY Administration Protocol Insulin Detemir 20 units 10/12/18 22:00 10/15/18 21:26 Levemir Vial SQ 20 units HS ARY Administration Insulin Detemir 7 units 10/14/18 09:30 10/16/18 06:39 Levemir Vial SQ Not Given DAILY@0700 ARY Lisinopril 10 mg 10/16/18 11:30 10/16/18 11:37 Prinivil PO 10 mg DAILY ARY Administration Ondansetron HCl 4 mg 10/12/18 15:52 Zofran Injection IVPUSH Q6H PRN NAUSEA Pantoprazole Sodium 40 mg 10/13/18 10:00 10/16/18 10:23 Protonix - PO 40 mg DAILY ARY Administration Polyethylene Glycol 17 gm 10/13/18 14:15 10/16/18 10:23 Miralax (For Daily Use) - PO Not Given DAILY [facility] ASSESSMENT/PLAN: This is a 48 yo M with PMH of IDDM, HTN, HLD, R foot osteomyelitis 10/2017 s/p excisional debridement with Dr. Torres and PICC abx rocephin, presenting here s/p stepping on glass and developing infection in RLE. Sepsis due to R foot abscess due to foreign body (glass) POD 0 s/o I and D ANDREINA IDDM HTN HLD -s/p debridement yesterday -was on zosyn x3d now on ancef d1 bc culture shows staph aureus -ID consult appreciated, MRI foot shows osteomyeliltis and abscess; podiatry will not i and d at this time -ISS, bgm ACHS, lantus 20 hs; hold metformin; a1c 6.6. -BGm goal <180 for dieabetic foot. evening glucose has been 270-300, required 14 u novolog over 24 hr, will add levemir 7 am -andreina improving, creat 1.3 (baseline 1.2) likely due to poor PO intake/ dehydration. hold AceI -continue lipitor 10 hs -hep ppx -PICC line tomorrow AM and dc on rocephin x 4-6w Problem List - Problems (1) ANDREINA (acute kidney injury) Code(s): N17.9 - ACUTE KIDNEY FAILURE, UNSPECIFIED (2) Diabetic foot infection Code(s): E11.628 - TYPE 2 DIABETES MELLITUS WITH OTHER SKIN COMPLICATIONS; L08.9 - LOCAL INFECTION OF THE SKIN AND SUBCUTANEOUS TISSUE, UNSP (3) Foreign body (FB) in soft tissue Code(s): M79.5 - RESIDUAL FOREIGN BODY IN SOFT TISSUE (4) Uncontrolled diabetes mellitus Code(s): E11.65 - TYPE 2 DIABETES MELLITUS WITH HYPERGLYCEMIA (5) Wound infection Code(s): T14.8XXA - OTHER INJURY OF UNSPECIFIED BODY REGION, INITIAL ENCOUNTER; L08.9 - LOCAL INFECTION OF THE SKIN AND SUBCUTANEOUS TISSUE, UNSP Visit type - Emergency Visit Emergency Visit: Yes ED Registration Date: 10/12/18 Care time: The patient presented to the Emergency Department on the above date and was hospitalized for further evaluation of their emergent condition. - New Patient This patient is new to me today: No - Critical Care Critical Care patient: No - Discharge Referral Referred to [facility] No
--- NOTE | 2018-10-16 15:34 | PN ---
Progress Note (short form) - Note Progress Note: MRI with 2.2 cm abscess and osteomyelitis of the proximal phalanx seen by inside sales specialist- Vital Signs Period Temp Pulse Resp BP Sys/Coffey Pulse Ox Last 24 Hr 98.4 F-99.7 F 79-89 15-20 142-162/70-88 99-99 cor-rrr lungs cler abd soft,nt ext minimal drainage from incision, erythema unchanged CBC, BMP 10/16/18 07:40 10/16/18 07:40 Laboratory Tests 10/13/18 10/15/18 10/15/18 06:30 06:05 06:05 ESR 86 H Hemoglobin A1c % 6.6 H C-Reactive Protein 11.1 H a/p MRI with evidence of 2.2 cm plantar abscess and osteomyelitis to continue ancef for MSSA when ready for picc line would prefer discharge on ancef 2 g q8h for minimum 6 weeks d/w dr kwok podiatry contacted and case discussed Problem List - Problems (1) Diabetic foot infection Code(s): E11.628 - TYPE 2 DIABETES MELLITUS WITH OTHER SKIN COMPLICATIONS; L08.9 - LOCAL INFECTION OF THE SKIN AND SUBCUTANEOUS TISSUE, UNSP (2) Foreign body (FB) in soft tissue Code(s): M79.5 - RESIDUAL FOREIGN BODY IN SOFT TISSUE (3) ANDREINA (acute kidney injury) Code(s): N17.9 - ACUTE KIDNEY FAILURE, UNSPECIFIED
[2018-10-16] MEDS: ATORVASTATIN CA 10 MG TABLET (FP) PO SCH (21:51)
[2018-10-17] MEDS: CEFAZOLIN 2 GM/D5W 2 GM/50 ML ML IVPB SCH ×3 (00:59→17:59)
[2018-10-17] MEDS: SODIUM CHLORIDE 1,000 ML IV SCH ×2 (01:00→10:00)
[2018-10-17] MEDS: INSULIN (LEVEMIR) 100 UNITS/ML UNITS SQ SCH ×2 (06:19→22:19)
[2018-10-17] MEDS: INSULIN SLIDING SCALE (NOVOLOG) 1 VIAL SQ SCH ×4 (06:19→22:19)
[2018-10-17] MEDS: HEPARIN NA (PORCINE) 5,000 UNITS/ML 1ML VIAL SQ SCH ×3 (06:19→22:18)
--- NOTE | 2018-10-17 07:41 | PN ---
Progress Note (short form) - Note Progress Note: MRI result reviewed --> ~ 2cm abscess to right forefoot w/ osteomyelitis. Patient going to OR for formal I&D of abscess with LU Jean-Baptiste Post-operative management to include wound care will be managed by Podiatry. Problem List - Problems (1) Diabetic foot infection Code(s): E11.628 - TYPE 2 DIABETES MELLITUS WITH OTHER SKIN COMPLICATIONS; L08.9 - LOCAL INFECTION OF THE SKIN AND SUBCUTANEOUS TISSUE, UNSP (2) Uncontrolled diabetes mellitus Code(s): E11.65 - TYPE 2 DIABETES MELLITUS WITH HYPERGLYCEMIA
[2018-10-17] MEDS ORDERED: PROPOFOL 20 ML ONE ×2 (08:03)
[2018-10-17] MEDS ORDERED: LIDOCAINE HCL/PF 2% SDV 5ML VIAL ONE (08:03)
[2018-10-17] MEDS ORDERED: MIDAZOLAM HCL 2 MG/2 ML SINGLE DOSE VIAL ONE (08:04)
--- NOTE | 2018-10-17 08:12 | PN ---
Progress Note (short form) - Note Progress Note: Patient seen this morning. Still draining, Wound unimproved. Will do I&D today.
[2018-10-17] MEDS ORDERED: ONDANSETRON 4 MG/2 ML VIAL ONE (08:38)
[2018-10-17] MEDS ORDERED: BACITRACIN 50,000 UNITS VIAL TP ONE (08:45)
[2018-10-17 08:51] LABS: INR 1.08 (0.83-1.09); PROTHROMBIN TIME (PATIENT) 12.8 SEC (9.7-13.0)
[2018-10-17] MEDS ORDERED: BUPIVACAINE HCL/PF 0.25% (2.5MG/ML) 10 ML VIAL STI ONE (08:52)
[2018-10-17] MEDS ORDERED: BUPIVACAINE HCL/PF 0.25% (2.5MG/ML) 10 ML VIAL IJ ONE (08:52)
--- NOTE | 2018-10-17 08:59 | OP ---
Operative Note - Note: Operative Date: 10/17/18 Pre-Operative Diagnosis: Abscess right foot. Possible foreign body remnants. Operation: Incision and drainage right foot 3rd interspace from dorsum to plantar aspect with a 6cm incision. Pulse lavage with 1000cc saline infused with bacitracin. 1/4" iodoform packing. Findings: Abscess with necrotic tissue. Post-Operative Diagnosis: Same as Pre-op Surgeon: Zi Jean-Baptiste Basket Machine Operator: Floyd Hendrix Anesthesia: General Specimens Removed: necrotic tissue, abscess, Estimated Blood Loss (mls): 15 Drains & Tubes with Location: 1/4 iodoform packing right foot Operative Report Dictated: No
[2018-10-17] MEDS ORDERED: ACETAMINOPHEN 325 MG TABLET (FP) PO PRN (09:06)
[2018-10-17] MEDS ORDERED: ONDANSETRON 4 MG/2 ML VIAL IVPUSH PRN (09:06)
[2018-10-17] MEDS: LISINOPRIL 10 MG TABLET (FP) PO SCH (10:49)
[2018-10-17] MEDS: PANTOPRAZOLE 40 MG TABLET (FP) PO SCH (10:49)
[2018-10-17] MEDS: ASPIRIN 81 MG CHEWABLE TABLETS PO SCH (10:49)
[2018-10-17] MEDS: POLYETHYLENE GLYCOL 3350 119 GM BTL PO SCH (10:50)
--- NOTE | 2018-10-17 11:02 | PN ---
Teaching Attending Note Name of Resident: Maryuri Marinelli ATTENDING PHYSICIAN STATEMENT I saw and evaluated the patient. I reviewed the resident's note and discussed the case with the resident. I agree with the resident's findings and plan as documented. SUBJECTIVE: Mr Horn is without complaint. No cp, sob, n/v. OBJECTIVE: Last Vital Signs Temp Pulse Resp BP Pulse Ox 36.7 C 75 18 154/73 97 10/17/18 10:00 10/17/18 10:00 10/17/18 10:00 10/17/18 10:00 10/17/18 10:00 Gen: nad Pulm: ctab w/o w/r/r CV: rrr w/o m/r/g Abd: +bs, s/nt/nd Ext: RLE wrapped ASSESSMENT AND PLAN: (1) Diabetic foot infection Assessment/Plan: -abscess still draining -seen by Dr Jean-Baptiste, underwent I&D -will need 4-6 weeks of antibiotics -preferable to use cefazolin but may need to use rocephin -PICC line ordered -possible discharge home today if ok with podiatry and home antibiotics set up Code(s): E11.628 - TYPE 2 DIABETES MELLITUS WITH OTHER SKIN COMPLICATIONS; L08.9 - LOCAL INFECTION OF THE SKIN AND SUBCUTANEOUS TISSUE, UNSP (2) Foreign body (FB) in soft tissue Assessment/Plan: -removed Code(s): M79.5 - RESIDUAL FOREIGN BODY IN SOFT TISSUE (3) ANDREINA (acute kidney injury) Assessment/Plan: -resolved Code(s): N17.9 - ACUTE KIDNEY FAILURE, UNSPECIFIED (4) Uncontrolled diabetes mellitus Assessment/Plan: -continue current regimen Code(s): E11.65 - TYPE 2 DIABETES MELLITUS WITH HYPERGLYCEMIA (5) HTN (hypertension) Assessment/Plan: -continue lisinopril Code(s): I10 - ESSENTIAL (PRIMARY) HYPERTENSION (6) HLD (hyperlipidemia) Assessment/Plan: -continue statin Code(s): E78.5 - HYPERLIPIDEMIA, UNSPECIFIED Problem List - Problems (1) Diabetic foot infection Code(s): E11.628 - TYPE 2 DIABETES MELLITUS WITH OTHER SKIN COMPLICATIONS; L08.9 - LOCAL INFECTION OF THE SKIN AND SUBCUTANEOUS TISSUE, UNSP (2) Foreign body (FB) in soft tissue Code(s): M79.5 - RESIDUAL FOREIGN BODY IN SOFT TISSUE (3) ANDREINA (acute kidney injury) Code(s): N17.9 - ACUTE KIDNEY FAILURE, UNSPECIFIED (4) Uncontrolled diabetes mellitus Code(s): E11.65 - TYPE 2 DIABETES MELLITUS WITH HYPERGLYCEMIA (5) HTN (hypertension) Code(s): I10 - ESSENTIAL (PRIMARY) HYPERTENSION (6) HLD (hyperlipidemia) Code(s): E78.5 - HYPERLIPIDEMIA, UNSPECIFIED
--- NOTE | 2018-10-17 11:23 | DS ---
Physical Exam: SUBJECTIVE: Patient seen and examined resting in bed nad. afebrile hemodynamically stable. no acute events. minimal pain in rle, was able to ambulate, denies f/c, weakness OBJECTIVE: Vital Signs Period Temp Pulse Resp BP Sys/Coffey Pulse Ox Last 24 Hr 97.0 F-99.7 F 75-89 12-20 137-162/61-87 96-100 PHYSICAL EXAM GENERAL: The patient is awake, alert, and fully oriented, in no acute distress. HEAD: Normal with no signs of trauma. EYES: sclera anicteric, conjunctiva clear. No ptosis. ENT: moist mucous membranes. NECK: supple. LUNGS: Breath sounds equal, clear to auscultation bilaterally HEART: Regular rate and rhythm, S1, S2 ABDOMEN: Soft, nontender, nondistended, normoactive bowel sounds, no guarding, no rebound EXTREMITIES: 2+ pulses, warm, well-perfused, RLE clean dressing intact. R foot packing in wound, +erythema and tenderness on plantar aspect near the wound NEUROLOGICAL: Cranial nerves II through XII grossly intact. Normal speech, gait not observed. PSYCH: Normal mood, normal affect. SKIN: Warm, dry LABS Laboratory Results - last 24 hr 10/16/18 10/16/18 10/16/18 11:22 16:01 20:38 PT with INR INR POC Glucometer 185 205 244 10/17/18 10/17/18 10/17/18 05:36 07:33 11:03 PT with INR 12.80 INR 1.08 POC Glucometer 81 85 HOSPITAL COURSE: Date of Admission:10/12/18 This is a 48 yo M with PMH of IDDM, HTN, HLD, R foot osteomyelitis 10/2017 s/p excisional debridement with Dr. Torres and PICC abx rocephin, presenting here s/p stepping on glass and developing infection in RLE. Patient admitted due to sepsis in setting of diabetic R foot abscess with foreign body (glass). abscess was debrided and patient was on 5 days of IV abx, however MRI was done that showed additional plantar abscess and osteomyelitis. Podiatry evaluated the patient performed I and D on the second abscess. patient was DCd home with PICC line on a 2w course of ancef 2g q8h while he is home form work and then 4 w 2g rocephin daily per ID. Date of Discharge: 10/17/18 Minutes to complete discharge: 35 Discharge Summary Reason For Visit: DIABETIC FOOT INFECTION Current Active Problems ANDREINA (acute kidney injury) (Acute) Diabetic foot infection (Acute) Foreign body (FB) in soft tissue (Acute) HLD (hyperlipidemia) (Acute) HTN (hypertension) (Acute) Condition: Stable - Instructions Diet, Activity, Other Instructions: You presented with a wound on your food that was cleaned out by surgery. MRI of you foot showed an additional abscess and osteomyelitis. You will need to be in IV antibiotic for at least 6 weeks to treat the bone infection. You will need to come for daily infusions. Please keep your blood sugars under 180 if possible Wound Care: Clean the wound with saline and pat dry well. Apply Bactroban Ointment to the wound daily. Cover with 4x4 and kerlix. When showering you may allow soap and water to run over the wound. Do not scrub the wound. Pat dry well after showering. No tub baths, pools, hot tubs, oceans, etc until cleared by your surgeon, Dr Torres. Follow up with Dr Torres (wound care) in 1 week. follow up with Dr Benavidez (infectious disease) in 1 week Follow up with Dr Jean-Baptiste (podiatry) every 3 months Referrals: Carlota Benavidez MD [Staff Physician] - Zi Jean-Baptiste DPM [Staff Physician] - Fiedl Torres MD [Staff Physician] - Disposition: HOME - Home Medications Comprehensive Discharge Medication List: Ambulatory Orders Insulin Aspart [Novolog] 10 unit SQ TIDCM 10/31/17 Insulin Glargine,Hum.rec.anlog [Lantus] 30 unit SQ HS 10/31/17 Aspirin [ASA -] 81 mg PO DAILY 11/05/17 Lisinopril [Prinivil] 10 mg PO DAILY #30 tablet 11/05/17 Simvastatin 10 mg PO DAILY 10/12/18 metFORMIN HCL [Metformin ER Osmotic] 1,000 mg PO DAILY 10/12/18 Mupirocin Ointment [Bactroban 2% Ointment -] 1 applic TP BID 14 Days #1 applic 10/14/18 Problem List - Problems (1) ANDREINA (acute kidney injury) Code(s): N17.9 - ACUTE KIDNEY FAILURE, UNSPECIFIED (2) Diabetic foot infection Code(s): E11.628 - TYPE 2 DIABETES MELLITUS WITH OTHER SKIN COMPLICATIONS; L08.9 - LOCAL INFECTION OF THE SKIN AND SUBCUTANEOUS TISSUE, UNSP (3) Foreign body (FB) in soft tissue Code(s): M79.5 - RESIDUAL FOREIGN BODY IN SOFT TISSUE (4) Uncontrolled diabetes mellitus Code(s): E11.65 - TYPE 2 DIABETES MELLITUS WITH HYPERGLYCEMIA (5) Wound infection Code(s): T14.8XXA - OTHER INJURY OF UNSPECIFIED BODY REGION, INITIAL ENCOUNTER; L08.9 - LOCAL INFECTION OF THE SKIN AND SUBCUTANEOUS TISSUE, UNSP This patient is new to me today: No Emergency Visit: Yes ED Registration Date: 10/12/18 Care time: The patient presented to the Emergency Department on the above date and was hospitalized for further evaluation of their emergent condition. Critical Care patient: No - Discharge Referral Referred to [facility] Med [facility].: No
--- NOTE | 2018-10-17 13:28 | PN ---
Progress Note (short form) - Note Progress Note: s/p drainage of abscess in the OR by podiatry having picc line placed Vital Signs Period Temp Pulse Resp BP Sys/Coffey Pulse Ox Last 24 Hr 97.0 F-99.7 F 75-89 12-20 132-162/61-87 96-100 Microbiology 10/12/18 12:52 Blood - Blood Bank Unit Blood Culture - Final NO GROWTH AFTER 5 DAYS INCUBATION 10/12/18 12:52 Blood - Blood Bank Unit Blood Culture - Final NO GROWTH AFTER 5 DAYS INCUBATION 10/16/18 12:45 Foot - Right Plantar Wound Culture - Preliminary NO GROWTH OBTAINED AFTER 24 HOURS INCUBATION, REINCUBATED. 10/13/18 08:45 Foot - Right Plantar Gram Stain - Final 10/13/18 08:45 Foot - Right Plantar Wound Culture - Final Staphylococcus Aureus 10/12/18 12:52 Foot - Right Plantar Gram Stain - Final 10/12/18 12:52 Foot - Right Plantar Wound Culture - Final Staphylococcus Aureus Laboratory Tests 10/13/18 10/15/18 10/15/18 06:30 06:05 06:05 ESR 86 H Hemoglobin A1c % 6.6 H C-Reactive Protein 11.1 H a/p MSSA abscess with osteomyelitis-s/p operative drainage when ready for picc line would prefer discharge on ancef 2 g q8h for minimum 6 weeks can switch to ceftriaxone 2 grams daily when he goes back to work I can see him in wound care for f/u of antibioitics Problem List - Problems (1) Diabetic foot infection Code(s): E11.628 - TYPE 2 DIABETES MELLITUS WITH OTHER SKIN COMPLICATIONS; L08.9 - LOCAL INFECTION OF THE SKIN AND SUBCUTANEOUS TISSUE, UNSP (2) Foreign body (FB) in soft tissue Code(s): M79.5 - RESIDUAL FOREIGN BODY IN SOFT TISSUE (3) ANDREINA (acute kidney injury) Code(s): N17.9 - ACUTE KIDNEY FAILURE, UNSPECIFIED
[2018-10-17] MEDS ORDERED: INSULIN (NOVOLOG) ASPART 100 UNITS/ML 10ML VIAL ONE ×2 (17:18→21:31)
[2018-10-17] MEDS: ATORVASTATIN CA 10 MG TABLET (FP) PO SCH (22:19)
--- NOTE | 2018-10-17 23:38 | PN ---
Progress Note (short form) - Note Progress Note: Patient is not cleared for dc from podiatry point of view. Should be monitored for another 48 hours due to extensive nature of abscess and hx of diabetes. Recommend not to be dc till Saturday. Packing will be pulled Saturday. If stable on Saturday can be dc to home on Saturday. Any questions please reach out to me at [phone]. Continue abx as per ID. New wound cultures are pending.
[2018-10-18] MEDS: CEFAZOLIN 2 GM/D5W 2 GM/50 ML ML IVPB SCH ×3 (03:14→17:54)
[2018-10-18] MEDS ORDERED: INSULIN (NOVOLOG) ASPART 100 UNITS/ML 10ML VIAL ONE (06:04)
[2018-10-18] MEDS: HEPARIN NA (PORCINE) 5,000 UNITS/ML 1ML VIAL SQ SCH ×3 (06:25→21:42)
[2018-10-18] MEDS: INSULIN SLIDING SCALE (NOVOLOG) 1 VIAL SQ SCH ×4 (06:25→21:43)
[2018-10-18] MEDS: INSULIN (LEVEMIR) 100 UNITS/ML UNITS SQ SCH ×2 (06:25→21:43)
[2018-10-18] MEDS: SODIUM CHLORIDE 1,000 ML IV SCH (06:27)
[2018-10-18] MEDS: LISINOPRIL 10 MG TABLET (FP) PO SCH (09:26)
[2018-10-18] MEDS: PANTOPRAZOLE 40 MG TABLET (FP) PO SCH (09:26)
[2018-10-18] MEDS: POLYETHYLENE GLYCOL 3350 119 GM BTL PO SCH (09:27)
[2018-10-18] MEDS: ASPIRIN 81 MG CHEWABLE TABLETS PO SCH (09:27)
--- NOTE | 2018-10-18 12:45 | PN ---
Progress Note, Physician Chief Complaint: Mr Horn is without complaint. Denies cp, sob, n/v. - Current Medication List Current Medications: Active Medications Acetaminophen (Tylenol -) 650 mg PO Q6H PRN PRN Reason: FEVER Last Admin: 10/17/18 22:21 Dose: 650 mg Aspirin (Asa -) 81 mg PO DAILY REPLACED BY [facility] Last Admin: 10/18/18 09:27 Dose: 81 mg Atorvastatin Calcium (Lipitor -) 10 mg PO HS REPLACED BY [facility] Last Admin: 10/17/18 22:19 Dose: 10 mg Heparin Sodium (Porcine) (Heparin -) 5,000 unit SQ TID REPLACED BY [facility] Last Admin: 10/18/18 06:25 Dose: Not Given Cefazolin Sodium/Dextrose (Ancef 2 Gm Premixed Ivpb -) 2 gm in 50 mls @ 100 mls /hr IVPB Q8H-IV REPLACED BY [facility] Last Admin: 10/18/18 09:26 Dose: 100 mls/hr Sodium Chloride (Normal Saline -) 1,000 mls @ 100 mls/hr IV ASDIR REPLACED BY [facility] Last Admin: 10/18/18 06:27 Dose: 100 mls/hr Insulin Aspart (Novolog Vial Sliding Scale -) 1 vial SQ ACHS REPLACED BY [facility]; Protocol Last Admin: 10/18/18 12:00 Dose: 2 units Insulin Detemir (Levemir Vial) 20 units SQ HS REPLACED BY [facility] Last Admin: 10/17/18 22:19 Dose: 20 units Insulin Detemir (Levemir Vial) 7 units SQ DAILY@0700 REPLACED BY [facility] Last Admin: 10/18/18 06:25 Dose: 7 units Lisinopril (Prinivil) 10 mg PO DAILY REPLACED BY [facility] Last Admin: 10/18/18 09:26 Dose: 10 mg Ondansetron HCl (Zofran Injection) 4 mg IVPUSH Q6H PRN PRN Reason: NAUSEA Pantoprazole Sodium (Protonix -) 40 mg PO DAILY REPLACED BY [facility] Last Admin: 10/18/18 09:26 Dose: 40 mg Polyethylene Glycol (Miralax (For Daily Use) -) 17 gm PO DAILY REPLACED BY [facility] Last Admin: 10/18/18 09:27 Dose: 17 grams - Objective Vital Signs: Vital Signs Temperature 36.8 C 10/18/18 05:00 Pulse Rate 81 10/18/18 05:00 Respiratory Rate 20 10/17/18 22:36 Blood Pressure 140/81 10/18/18 05:00 O2 Sat by Pulse Oximetry (%) 97 10/17/18 11:10 Constitutional: Yes: Well Nourished, No Distress, Calm Cardiovascular: Yes: Regular Rate and Rhythm. No: Gallop, Murmur, Rub Respiratory: Yes: Regular, CTA Bilaterally. No: Rales, Rhonchi, Wheezes Gastrointestinal: Yes: Normal Bowel Sounds, Soft. No: Distention, Tenderness Extremities: Yes: Other (RLE wrapped) Edema: No Labs: CBC, BMP 10/16/18 07:40 10/16/18 07:40 INR, PTT INR 1.08 (0.83-1.09) 10/17/18 07:33 Problem List - Problems (1) Diabetic foot infection Code(s): E11.628 - TYPE 2 DIABETES MELLITUS WITH OTHER SKIN COMPLICATIONS; L08.9 - LOCAL INFECTION OF THE SKIN AND SUBCUTANEOUS TISSUE, UNSP (2) Foreign body (FB) in soft tissue Code(s): M79.5 - RESIDUAL FOREIGN BODY IN SOFT TISSUE (3) ANDREINA (acute kidney injury) Code(s): N17.9 - ACUTE KIDNEY FAILURE, UNSPECIFIED (4) Uncontrolled diabetes mellitus Code(s): E11.65 - TYPE 2 DIABETES MELLITUS WITH HYPERGLYCEMIA (5) HTN (hypertension) Code(s): I10 - ESSENTIAL (PRIMARY) HYPERTENSION (6) HLD (hyperlipidemia) Code(s): E78.5 - HYPERLIPIDEMIA, UNSPECIFIED Assessment/Plan (1) Diabetic foot infection Assessment/Plan: -s/p I&D yesterday -case d/w Dr Jean-Baptiste and note reviewed -deep incision, needs to be monitored over the weekend -Dr Jean-Baptiste to come and change dressing tomorrow and evaluate wound -continue antibiotics, home IV antibiotics set up Code(s): E11.628 - TYPE 2 DIABETES MELLITUS WITH OTHER SKIN COMPLICATIONS; L08.9 - LOCAL INFECTION OF THE SKIN AND SUBCUTANEOUS TISSUE, UNSP (2) Foreign body (FB) in soft tissue Assessment/Plan: -removed Code(s): M79.5 - RESIDUAL FOREIGN BODY IN SOFT TISSUE (3) ANDREINA (acute kidney injury) Assessment/Plan: -resolved Code(s): N17.9 - ACUTE KIDNEY FAILURE, UNSPECIFIED (4) Uncontrolled diabetes mellitus Assessment/Plan: -continue current regimen Code(s): E11.65 - TYPE 2 DIABETES MELLITUS WITH HYPERGLYCEMIA (5) HTN (hypertension) Assessment/Plan: -increase lisinopril to 20mg -monitor for improvement Code(s): I10 - ESSENTIAL (PRIMARY) HYPERTENSION (6) HLD (hyperlipidemia) Assessment/Plan: -continue statin Code(s): E78.5 - HYPERLIPIDEMIA, UNSPECIFIED
--- NOTE | 2018-10-18 15:49 | PN ---
Progress Note (short form) - Note Progress Note: pod#1. no pain. vss, tmax 98.5 +clean dry dressing, no growth on most recent cultures om normal post op dressing change and packing pull on saturday. will follow. abx asper id.
[2018-10-18 17:41] LABS: BASO % 0.5 % (0-2.0); EOS % 1.7 % (0-4.5); HEMATOCRIT 30.6 % (35.4-49); LYMPH % 24.3 % (8-40); MCH 27.6 pg (25.7-33.7); MCHC 32.8 g/dl (32.0-35.9); MEAN CELL VOLUME 84.1 fl (80-96); MEAN PLT VOLUME 8.2 fl (7.5-11.1); MONO % 11.7 % (3.8-10.2); NEUT % 61.8 % (42.8-82.8); PLATELET COUNT 364 K/MM3 (134-434); RBC 3.63 M/mm3 (4.00-5.60); RDW 13.5 % (11.9-15.9); WHITE BLOOD COUNT 8.3 K/mm3 (4.0-10.0)
[2018-10-18] MEDS: ATORVASTATIN CA 10 MG TABLET (FP) PO SCH (21:43)
[2018-10-19] MEDS: CEFAZOLIN 2 GM/D5W 2 GM/50 ML ML IVPB SCH ×3 (02:16→17:53)
[2018-10-19] MEDS: SODIUM CHLORIDE 1,000 ML IV SCH ×2 (04:33→06:03)
[2018-10-19] MEDS: HEPARIN NA (PORCINE) 5,000 UNITS/ML 1ML VIAL SQ SCH ×3 (05:42→21:57)
[2018-10-19] MEDS: INSULIN (LEVEMIR) 100 UNITS/ML UNITS SQ SCH ×2 (06:04→22:01)
[2018-10-19] MEDS: INSULIN SLIDING SCALE (NOVOLOG) 1 VIAL SQ SCH ×4 (07:00→22:01)
[2018-10-19 07:28] LABS: BLOOD UREA NITROGEN 15.8 mg/dL (7-18); CALCIUM 8.9 mg/dL (8.5-10.1); CREATININE 1.6 mg/dL (0.55-1.3); MAGNESIUM 2.1 mg/dL (1.8-2.4); PHOSPHOROUS 3.8 mg/dL (2.5-4.9); POTASSIUM 4.9 mmol/L (3.5-5.1)
[2018-10-19 07:51] LABS: BASO % 0.5 % (0-2.0); EOS % 1.8 % (0-4.5); HEMATOCRIT 30.5 % (35.4-49); HEMOGLOBIN 10.2 GM/dL (11.7-16.9); LYMPH % 27.7 % (8-40); MCH 27.9 pg (25.7-33.7); MCHC 33.4 g/dl (32.0-35.9); MEAN CELL VOLUME 83.4 fl (80-96); MEAN PLT VOLUME 8.3 fl (7.5-11.1); MONO % 10.8 % (3.8-10.2); NEUT % 59.2 % (42.8-82.8); RBC 3.65 M/mm3 (4.00-5.60); RDW 13.2 % (11.9-15.9); WHITE BLOOD COUNT 8.6 K/mm3 (4.0-10.0)
[2018-10-19 08:56] LABS: PLATELET COUNT 380 K/MM3 (134-434)
[2018-10-19] MEDS: ASPIRIN 81 MG CHEWABLE TABLETS PO SCH (10:05)
[2018-10-19] MEDS: PANTOPRAZOLE 40 MG TABLET (FP) PO SCH (10:05)
[2018-10-19] MEDS: LISINOPRIL 10 MG TABLET (FP) PO SCH (10:06)
[2018-10-19] MEDS: POLYETHYLENE GLYCOL 3350 119 GM BTL PO SCH (10:08)
--- NOTE | 2018-10-19 10:28 | PN ---
Progress Note (short form) - Note Progress Note: s/p drainage of abscess in the OR by podiatry having picc line placed Vital Signs Period Temp Pulse Resp BP Sys/Coffey Pulse Ox Last 24 Hr 98.1 F-98.6 F 81-86 19-20 141-157/78-86 97 cor-rrr lungs clear abd soft,nt ext dressing intact CBC, BMP 10/19/18 06:20 10/19/18 06:20 Microbiology 10/16/18 12:45 Foot - Right Plantar Gram Stain - Final 10/16/18 12:45 Foot - Right Plantar Wound Culture - Final NO GROWTH AFTER 48 HOURS INCUBATION 10/17/18 11:00 Foot - Right Plantar Gram Stain - Final 10/17/18 11:00 Foot - Right Plantar Wound Culture - Preliminary NO GROWTH OBTAINED AFTER 24 HOURS INCUBATION, REINCUBATED. 10/17/18 11:00 Foot - Right Plantar Gram Stain - Final 10/17/18 11:00 Foot - Right Plantar Wound Culture - Preliminary NO GROWTH OBTAINED AFTER 24 HOURS INCUBATION, REINCUBATED. 10/12/18 12:52 Blood - Blood Bank Unit Blood Culture - Final NO GROWTH AFTER 5 DAYS INCUBATION 10/12/18 12:52 Blood - Blood Bank Unit Blood Culture - Final NO GROWTH AFTER 5 DAYS INCUBATION 10/13/18 08:45 Foot - Right Plantar Gram Stain - Final 10/13/18 08:45 Foot - Right Plantar Wound Culture - Final Staphylococcus Aureus 10/12/18 12:52 Foot - Right Plantar Gram Stain - Final 10/12/18 12:52 Foot - Right Plantar Wound Culture - Final Staphylococcus Aureus Laboratory Tests 10/13/18 10/15/18 10/15/18 06:30 06:05 06:05 ESR 86 H Hemoglobin A1c % 6.6 H C-Reactive Protein 11.1 H a/p MSSA abscess with osteomyelitis-s/p operative drainage- discharge per podiatry diabetes CKD when ready for picc line would prefer discharge on ancef 2 g q8h for minimum 6 weeks prescriptions for meds and labs given to home infusion company I can see him in wound care for f/u of antibiotics- patient is aware Problem List - Problems (1) Diabetic foot infection Code(s): E11.628 - TYPE 2 DIABETES MELLITUS WITH OTHER SKIN COMPLICATIONS; L08.9 - LOCAL INFECTION OF THE SKIN AND SUBCUTANEOUS TISSUE, UNSP (2) Foreign body (FB) in soft tissue Code(s): M79.5 - RESIDUAL FOREIGN BODY IN SOFT TISSUE (3) ANDREINA (acute kidney injury) Code(s): N17.9 - ACUTE KIDNEY FAILURE, UNSPECIFIED
--- NOTE | 2018-10-19 10:47 | PN ---
Progress Note, Physician Chief Complaint: POD#2. No pain. - Current Medication List Current Medications: Active Medications Acetaminophen (Tylenol -) 650 mg PO Q6H PRN PRN Reason: FEVER Last Admin: 10/17/18 22:21 Dose: 650 mg Aspirin (Asa -) 81 mg PO DAILY [facility] Last Admin: 10/19/18 10:05 Dose: 81 mg Atorvastatin Calcium (Lipitor -) 10 mg PO HS [facility] Last Admin: 10/18/18 21:43 Dose: 10 mg Heparin Sodium (Porcine) (Heparin -) 5,000 unit SQ TID [facility] Last Admin: 10/19/18 05:42 Dose: Not Given Cefazolin Sodium/Dextrose (Ancef 2 Gm Premixed Ivpb -) 2 gm in 50 mls @ 100 mls /hr IVPB Q8H-IV [facility] Last Admin: 10/19/18 10:06 Dose: 100 mls/hr Sodium Chloride (Normal Saline -) 1,000 mls @ 100 mls/hr IV ASDIR [facility] Last Admin: 10/19/18 06:03 Dose: 100 mls/hr Insulin Aspart (Novolog Vial Sliding Scale -) 1 vial SQ ACHS [facility]; Protocol Last Admin: 10/19/18 07:00 Dose: Not Given Insulin Detemir (Levemir Vial) 20 units SQ HS [facility] Last Admin: 10/18/18 21:43 Dose: 20 units Insulin Detemir (Levemir Vial) 7 units SQ DAILY@0700 [facility] Last Admin: 10/19/18 06:04 Dose: 7 units Lisinopril (Prinivil) 20 mg PO DAILY [facility] Last Admin: 10/19/18 10:06 Dose: 20 mg Ondansetron HCl (Zofran Injection) 4 mg IVPUSH Q6H PRN PRN Reason: NAUSEA Pantoprazole Sodium (Protonix -) 40 mg PO DAILY [facility] Last Admin: 10/19/18 10:05 Dose: 40 mg Polyethylene Glycol (Miralax (For Daily Use) -) 17 gm PO DAILY [facility] Last Admin: 10/19/18 10:08 Dose: 17 grams - Objective Vital Signs: Vital Signs Temperature 98.6 F 10/19/18 06:00 Pulse Rate 83 10/19/18 06:00 Respiratory Rate 19 10/18/18 19:35 Blood Pressure 157/84 10/19/18 06:00 O2 Sat by Pulse Oximetry (%) 97 10/18/18 22:00 Extremities: Yes: Other (+dressing intact, +granulating wound, +packing intact, -drainage, -mal odor,) Labs: CBC, BMP 10/19/18 06:20 10/19/18 06:20 INR, PTT INR 1.08 (0.83-1.09) 10/17/18 07:33 Assessment/Plan Foreign Body Post op abscess/cellulitis/om Packing pulled. Wound irrigated with betadine. Dressing change done. Patient stable to be dc from podiatry standpoint. Will follow up in office or wound care. VNS daily for regranex dressing change to right foot. Abx as per ID. Rx sent to [place] today. will follow till dc.
[2018-10-19] MEDS ORDERED: INSULIN (NOVOLOG) ASPART 100 UNITS/ML 10ML VIAL ONE ×2 (11:03→21:58)
--- NOTE | 2018-10-19 11:40 | PN ---
Progress Note, Physician Chief Complaint: Mr Horn is without complaint. Denies cp, sob, n/v. - Current Medication List Current Medications: Active Medications Acetaminophen (Tylenol -) 650 mg PO Q6H PRN PRN Reason: FEVER Last Admin: 10/17/18 22:21 Dose: 650 mg Aspirin (Asa -) 81 mg PO DAILY [facility] Last Admin: 10/19/18 10:05 Dose: 81 mg Atorvastatin Calcium (Lipitor -) 10 mg PO HS [facility] Last Admin: 10/18/18 21:43 Dose: 10 mg Heparin Sodium (Porcine) (Heparin -) 5,000 unit SQ TID [facility] Last Admin: 10/19/18 05:42 Dose: Not Given Cefazolin Sodium/Dextrose (Ancef 2 Gm Premixed Ivpb -) 2 gm in 50 mls @ 100 mls /hr IVPB Q8H-IV [facility] Last Admin: 10/19/18 10:06 Dose: 100 mls/hr Insulin Aspart (Novolog Vial Sliding Scale -) 1 vial SQ ACHS [facility]; Protocol Last Admin: 10/19/18 11:25 Dose: 2 units Insulin Detemir (Levemir Vial) 20 units SQ [facility] Last Admin: 10/18/18 21:43 Dose: 20 units Insulin Detemir (Levemir Vial) 7 units SQ DAILY@0700 [facility] Last Admin: 10/19/18 06:04 Dose: 7 units Lisinopril (Prinivil) 20 mg PO DAILY [facility] Last Admin: 10/19/18 10:06 Dose: 20 mg Ondansetron HCl (Zofran Injection) 4 mg IVPUSH Q6H PRN PRN Reason: NAUSEA Pantoprazole Sodium (Protonix -) 40 mg PO DAILY [facility] Last Admin: 10/19/18 10:05 Dose: 40 mg Polyethylene Glycol (Miralax (For Daily Use) -) 17 gm PO DAILY [facility] Last Admin: 10/19/18 10:08 Dose: 17 grams - Objective Vital Signs: Vital Signs Temperature 37.0 C 10/19/18 06:00 Pulse Rate 83 10/19/18 06:00 Respiratory Rate 19 10/18/18 19:35 Blood Pressure 157/84 10/19/18 06:00 O2 Sat by Pulse Oximetry (%) 97 10/18/18 22:00 Constitutional: Yes: Well Nourished, No Distress, Calm Cardiovascular: Yes: Regular Rate and Rhythm. No: Gallop, Murmur, Rub Respiratory: Yes: Regular, CTA Bilaterally. No: Rales, Rhonchi, Wheezes Gastrointestinal: Yes: Normal Bowel Sounds, Soft. No: Distention, Tenderness Extremities: Yes: Other (RLE wrapped) Edema: No Labs: CBC, BMP 10/19/18 06:20 10/19/18 06:20 INR, PTT INR 1.08 (0.83-1.09) 10/17/18 07:33 Problem List - Problems (1) Diabetic foot infection Code(s): E11.628 - TYPE 2 DIABETES MELLITUS WITH OTHER SKIN COMPLICATIONS; L08.9 - LOCAL INFECTION OF THE SKIN AND SUBCUTANEOUS TISSUE, UNSP (2) Foreign body (FB) in soft tissue Code(s): M79.5 - RESIDUAL FOREIGN BODY IN SOFT TISSUE (3) ANDREINA (acute kidney injury) Code(s): N17.9 - ACUTE KIDNEY FAILURE, UNSPECIFIED (4) Uncontrolled diabetes mellitus Code(s): E11.65 - TYPE 2 DIABETES MELLITUS WITH HYPERGLYCEMIA (5) HTN (hypertension) Code(s): I10 - ESSENTIAL (PRIMARY) HYPERTENSION (6) HLD (hyperlipidemia) Code(s): E78.5 - HYPERLIPIDEMIA, UNSPECIFIED Assessment/Plan (1) Diabetic foot infection Assessment/Plan: -s/p I&D -Dr Jean-Baptiste saw patient and changed dressing -plan for discharge tomorrow -IV antibiotics established Code(s): E11.628 - TYPE 2 DIABETES MELLITUS WITH OTHER SKIN COMPLICATIONS; L08.9 - LOCAL INFECTION OF THE SKIN AND SUBCUTANEOUS TISSUE, UNSP (2) Foreign body (FB) in soft tissue Assessment/Plan: -removed Code(s): M79.5 - RESIDUAL FOREIGN BODY IN SOFT TISSUE (3) ANDREINA (acute kidney injury) Assessment/Plan: -resolved Code(s): N17.9 - ACUTE KIDNEY FAILURE, UNSPECIFIED (4) Uncontrolled diabetes mellitus Assessment/Plan: -continue current regimen Code(s): E11.65 - TYPE 2 DIABETES MELLITUS WITH HYPERGLYCEMIA (5) HTN (hypertension) Assessment/Plan: -increased lisinopril to 20mg -stop IVF today Code(s): I10 - ESSENTIAL (PRIMARY) HYPERTENSION (6) HLD (hyperlipidemia) Assessment/Plan: -continue statin Code(s): E78.5 - HYPERLIPIDEMIA, UNSPECIFIED
[2018-10-19] MEDS: ATORVASTATIN CA 10 MG TABLET (FP) PO SCH (22:02)
[2018-10-20] MEDS: CEFAZOLIN 2 GM/D5W 2 GM/50 ML ML IVPB SCH ×2 (01:44→09:48)
[2018-10-20] MEDS: INSULIN (LEVEMIR) 100 UNITS/ML UNITS SQ SCH (06:16)
[2018-10-20] MEDS: INSULIN SLIDING SCALE (NOVOLOG) 1 VIAL SQ SCH ×2 (06:16→11:41)
[2018-10-20] MEDS: HEPARIN NA (PORCINE) 5,000 UNITS/ML 1ML VIAL SQ SCH ×2 (06:16→14:02)
[2018-10-20] MEDS ORDERED: INSULIN (NOVOLOG) ASPART 100 UNITS/ML 10ML VIAL ONE ×2 (06:22→11:40)
[2018-10-20] MEDS: ASPIRIN 81 MG CHEWABLE TABLETS PO SCH (09:48)
[2018-10-20] MEDS: PANTOPRAZOLE 40 MG TABLET (FP) PO SCH (09:48)
[2018-10-20] MEDS: LISINOPRIL 10 MG TABLET (FP) PO SCH (09:48)
[2018-10-20 09:56] VITALS: BP 109/72; PULSE 89; TEMP 98.4
[2018-10-20] MEDS: POLYETHYLENE GLYCOL 3350 119 GM BTL PO SCH (09:57)
--- NOTE | 2018-10-20 11:24 | DS ---
Physical Examination Vital Signs: Vital Signs Temperature 36.9 C 10/20/18 09:55 Pulse Rate 89 10/20/18 09:55 Respiratory Rate 18 10/20/18 09:55 Blood Pressure 109/72 10/20/18 09:55 O2 Sat by Pulse Oximetry (%) 96 10/19/18 21:00 Constitutional: Yes: Well Nourished, No Distress, Calm Cardiovascular: Yes: Regular Rate and Rhythm. No: Gallop, Murmur, Rub Respiratory: Yes: Regular, CTA Bilaterally. No: Rales, Rhonchi, Wheezes Gastrointestinal: Yes: Normal Bowel Sounds, Soft. No: Distention, Tenderness Extremities: Yes: Other (RLE wrapped) Edema: No Labs: CBC, BMP 10/19/18 06:20 10/19/18 06:20 Discharge Summary Reason For Visit: DIABETIC FOOT INFECTION Current Active Problems ANDREINA (acute kidney injury) (Acute) Diabetic foot infection (Acute) Foreign body (FB) in soft tissue (Acute) HLD (hyperlipidemia) (Acute) HTN (hypertension) (Acute) Hospital Course: Please refer to discharge summary written on 10/17/16 for full hospital course. Patient was scheduled for discharge, but after discussing with podiatry this was held secondary to the I&D being deep. He continued antibiotics over the weekend without difficulty. He was seen by podiatry on Saturday and the packing was changed. He is set up for hyperbaric oxygen treatment and home IV antibiotics. He is safe for discharge today. Condition: Stable - Instructions Diet, Activity, Other Instructions: You presented with a wound on your food that was cleaned out by surgery. MRI of you foot showed an additional abscess and osteomyelitis. You will need to be in IV antibiotic for at least 6 weeks to treat the bone infection. You will need to come for daily infusions. Please keep your blood sugars under 180 if possible Wound Care: Clean the wound with saline and pat dry well. Apply Bactroban Ointment to the wound daily. Cover with 4x4 and kerlix. When showering you may allow soap and water to run over the wound. Do not scrub the wound. Pat dry well after showering. No tub baths, pools, hot tubs, oceans, etc until cleared by your surgeon, Dr Torres. Follow up with Dr Torres (wound care) in 1 week. follow up with Dr Benavidez (infectious disease) in 1 week Follow up with Dr Jean-Baptiste (podiatry) every 3 months Referrals: Carlota Benavidez MD [Staff Physician] - Zi Jean-Baptiste DPM [Staff Physician] - Fidel Torres MD [Staff Physician] - Disposition: HOME - Home Medications Comprehensive Discharge Medication List: Ambulatory Orders Insulin Aspart [Novolog] 10 unit SQ TIDCM 10/31/17 Insulin Glargine,Hum.rec.anlog [Lantus] 30 unit SQ HS 10/31/17 Aspirin [ASA -] 81 mg PO DAILY 11/05/17 Lisinopril [Prinivil] 10 mg PO DAILY #30 tablet 11/05/17 Simvastatin 10 mg PO DAILY 10/12/18 metFORMIN HCL [Metformin ER Osmotic] 1,000 mg PO DAILY 10/12/18 Mupirocin Ointment [Bactroban 2% Ointment -] 1 applic TP BID 14 Days #1 applic 10/14/18 Cefazolin 2 gm/D5w [Ancef 2 gm Premixed Ivpb -] 2 gm IV Q8H 14 Days ml Ceftriaxone [Rocephin 2Gm Ivpb (Pre-Docked)] 2 gm IVPB DAILY 28 Days vial 10/17 Becaplermin [Regranex] 15 gm TP DAILY 30 Days #15 gel..gram. 10/19/18
--- NOTE | 2018-10-20 17:05 | PATH ---
Surgical Pathology Report Patient Name: CHRISTOPHE FOWLER Med. Rec. #: [id number] /Age/Gender: 1970 (Age: 48) / M Account: [id number] Location: [address] [place] [address]/[facility] Taken: 10/17/2018 Received: 10/17/2018 Reported: 10/20/2018 Physicians: Zi Jean-Baptiste DPM Specimen(s) Received DEBRIDEMENT TISSUE RIGHT FOOT Clinical History Right foot abscess Final Diagnosis NECROTIC SKIN RIGHT FOOT, EXCISION: SUPERFICIAL PORTION OF EPIDERMIS WITH HYPERKERATOSIS, PARAKERATOSIS, AND FOCAL ACUTE INFLAMMATORY EXUDATE. Electronically Signed Varinder Wilder M.D. Gross Description Received in formalin labeled "necrotic skin right foot," is a 5.0 x 2.8 x 0.1 cm isaac skin shave. Boat Cleaner sections are submitted in one cassette. /10/17/2018 saudi/10/17/2018
--- NOTE | 2018-11-14 06:52 | OP ---
DATE OF OPERATION: 10/17/2018 SURGEON: Zi Jean-Baptiste DPM RADIO REPAIR TEACHER: Floyd Hendrix DPM PREOPERATIVE DIAGNOSIS: Abscess right foot with possible foreign body remnants. PROCEDURE: Incision and drainage of the right foot, 3rd interspace, with pulse lavage and 0.25-inch Iodoform packing. PROCEDURE WAS FOLLOWS: After noting all preoperative vital signs within normal limits and after the surgical consent was signed and witnessed, the patient was brought to the OR and placed on the table in the supine position. Once the patient was on the table, the patients was prepped and draped in the usual sterile fashion. Once the patients foot was prepped and draped, attention was directed to the plantar dorsal aspect of the 3rd interspace of the right foot. At this time, there was noted to be a fluctuant area on the plantar aspect. An incision was created from dorsal on the interspace into the interspace down into the plantar aspect of the interspace approximately 6-7 cm in length. This incision was deepened using sharp and blunt dissection to the level of the abscess. Once the abscess was identified, it was cultured, and the specimen was sent down to Pathology. The area was then explored and any remaining purulence that was noted was expressed. The area was then flushed with copious amounts of sterile saline with antibiotic added to it through the use of a pulse lavage machine, 1000 mL of saline was utilized to irrigate the area. Once the area was irrigated, it was examined. Any necrotic tissue had been removed prior to the irrigation. The area was then packed with 0.25-inch Iodoform packing on the dorsal and plantar aspect of the incision site. Xeroform gauze, dry sterile 4x4s, and a Lee Ann dressing were then applied. The patient tolerated the anesthesia and the procedure well. Patient returned to the recovery room with vital signs stable and vascular status intact. LU Horvath/[id number]
== END 2018-10-20 15:30 | disposition home or self-care (01) | DRG 638 ==
LOC: JER 12:04 → JERBED 15:23 → J6S 16:21
PROVIDERS: ADMIT Hospitalist; ATTEND Internal Medicine
PROC: 0H9MXZX Drainage of Right Foot Skin, External Approach, Diagnostic (ICD-10-PCS; principal; 2018-10-13)
PROC: 0JCN0ZZ Extirpation of Matter from Right Lower Leg Subcutaneous Tissue and Fascia, Open Approach (ICD-10-PCS; 2018-10-13)
PROC: 02HV33Z Insertion of Infusion Device into Superior Vena Cava, Percutaneous Approach (ICD-10-PCS; 2018-10-17)
PROC: B518ZZA Fluoroscopy of Superior Vena Cava, Guidance (ICD-10-PCS; 2018-10-17)
PROC: 3E043GC Introduction of Other Therapeutic Substance into Central Vein, Percutaneous Approach (ICD-10-PCS; 2018-10-17)
PROC: 0J9Q0ZX Drainage of Right Foot Subcutaneous Tissue and Fascia, Open Approach, Diagnostic (ICD-10-PCS; 2018-10-17)
PROC: 3E10X8Z Irrigation of Skin and Mucous Membranes using Irrigating Substance (ICD-10-PCS; 2018-10-17)
DX: E11.69 Type 2 diabetes mellitus with other specified complication (principal); L02.611 Cutaneous abscess of right foot; M86.8X7 Other osteomyelitis, ankle and foot; L03.115 Cellulitis of right lower limb; N17.9 Acute kidney failure, unspecified; L08.89 Other specified local infections of the skin and subcutaneous tissue; I10 Essential (primary) hypertension; E78.00 Pure hypercholesterolemia, unspecified; E11.65 Type 2 diabetes mellitus with hyperglycemia; E11.628 Type 2 diabetes mellitus with other skin complications; B95.61 Methicillin susceptible Staphylococcus aureus infection as the cause of diseases classified elsewhere; E86.0 Dehydration; M79.5 Residual foreign body in soft tissue; E11.319 Type 2 diabetes mellitus with unspecified diabetic retinopathy without macular edema; E11.40 Type 2 diabetes mellitus with diabetic neuropathy, unspecified; Z87.891 Personal history of nicotine dependence
CPT/HCPCS: 36415; 36558; 73610-TC-RT-FY; 73630-TC-RT-FY; 73721-RT-TC; 77001-TC-FY; 80048; 80053; 82962; 83036; 83605; 83735; 84100; 85025; 85610; 85651; 86140; 86850; 86900; 86901; 87040; 87070; 87186; 87205; 88304-TC; 93005; 93010; 94760; 97116-GP; 97161-GP; 99283-25; C1751; G0480; J1644; J7030

== ENCOUNTER 2018-10-24 18:46 | Emergency (ER) | payer OTHER ==
--- NOTE | 2018-10-24 18:57 | PDOC ---
Rapid Medical Evaluation Chief Complaint: Revisit, Lab Variance Time Seen by Provider: 10/24/18 18:51 Medical Evaluation: Allergies Allergy/AdvReac Type Severity Reaction Status Date / Time No Known Allergies Allergy Verified 10/12/18 12:08 10/24/18 18:57 I have performed a brief in-person evaluation of this patient. The patient presents with a chief complaint of:Hypokalemia on labs several days ago. H/o IDDM, chronic wound to R foot, s/p recent admission for cellulites. Hospital course C/B ANDREINA during admission (Cr 1.9 on admission, 1.6 on discharge 10/19, nl potassium while inhouse) Pertinent physical exam findings:Stable and wel heath I have ordered the following:labs/ekg The patient will proceed to the ED for further evaluation. Discharge Disposition - Diagnosis Hypokalemia - Referrals - Patient Instructions - Post Discharge Activity
[2018-10-24 18:58] VITALS: BP 158/74; PULSE 100; TEMP 98.3; BMI 28.6
--- NOTE | 2018-10-24 19:36 | PDOC ---
History of Present Illness - General Chief Complaint: Revisit, Lab Variance Stated Complaint: SENT BY PCP Time Seen by Provider: 10/24/18 18:51 History Source: Patient - History of Present Illness Initial Comments: 10/24/18 19:45 Chief complaint: Abnormal labs Patient 48-year-old male with a history of IDDM, toe infection, hyperlipidemia and hypertension who was recently discharged from the hospital, followed up with his infection disease doctor and had labs drawn by visiting nurse few days ago. Patient denies any fever, states he is feeling fine, getting home infusions of cefazolin, patient states he was called and told that his potassium was low, and question of his kidney function. GENERAL/CONSTITUTIONAL: No fever, weakness. dizziness HEAD, EYES, EARS, NOSE AND THROAT: No change in vision. No ear pain or discharge. No sore throat. CARDIOVASCULAR: No chest pain RESPIRATORY: No shortness of breath or cough GASTROINTESTINAL: No pain, nausea, vomiting, diarrhea or constipation GENITOURINARY: No dysuria MUSCULOSKELETAL: No neck or back pain SKIN: No rash NEUROLOGIC: No headache, vertigo, loss of consciousness, or loss of sensation. GENERAL: The patient is awake, alert, and fully oriented, in no acute distress. HEAD: Normal with no signs of trauma. EYES: Pupils equal, round and reactive to light, sclera anicteric, conjunctiva clear. ENT: pharynx: no erythema, no exudate, uvula midline NECK: supple CHEST: clear, nontender, rr, + line, no signs of infection ABD: soft, nontender BACK: no tenderness or signs of injury EXTREMITIES: Right foot wrapped in dressing, being monitored by visiting nurse should states is getting better, otherwise normal range of motion, no edema. NEUROLOGICAL: Normal speech, normal gait. SKIN: Warm, Dry Past History - Past Medical History Allergies/Adverse Reactions: Allergies Allergy/AdvReac Type Severity Reaction Status Date / Time No Known Allergies Allergy Verified 10/12/18 12:08 Home Medications: Ambulatory Orders Insulin Aspart [Novolog] 10 unit SQ TIDCM 10/31/17 Insulin Glargine,Hum.rec.anlog [Lantus] 30 unit SQ HS 10/31/17 Aspirin [ASA -] 81 mg PO DAILY 11/05/17 Lisinopril [Prinivil] 10 mg PO DAILY #30 tablet 07/03/18 Simvastatin 10 mg PO DAILY 10/12/18 metFORMIN HCL [Metformin ER Osmotic] 1,000 mg PO DAILY 10/12/18 Mupirocin Ointment [Bactroban 2% Ointment -] 1 applic TP BID 14 Days #1 applic 10/14/18 Cefazolin 2 gm/D5w [Ancef 2 gm Premixed Ivpb -] 2 gm IV Q8H 14 Days ml Ceftriaxone [Rocephin 2Gm Ivpb (Pre-Docked)] 2 gm IVPB DAILY 28 Days vial 10/17 Becaplermin [Regranex] 15 gm TP DAILY 30 Days #15 gel..gram. 10/19/18 Anemia: No Asthma: Yes Cancer: No Cardiac Disorders: No CVA: No COPD: No CHF: No DVT: No Dementia: No Diabetes: Yes (TYPE 2) GI Disorders: Yes (if not taking Miralax daily; constipated) Disorders: No HTN: Yes Hypercholesterolemia: Yes Liver Disease: No Seizures: No Thyroid Disease: No - Surgical History Abdominal Surgery: No Appendectomy: No Cardiac Surgery: No Cholecystectomy: No Lung Surgery: No Neurologic Surgery: No Orthopedic Surgery: No - Immunization History Immunization Up to Date: Yes - Suicide/Smoking/Psychosocial Hx Smoking History: Unknown if ever smoked Have you smoked in the past 12 months: No Hx Alcohol Use: Yes (occasionally) Drug/Substance Use Hx: No Substance Use Type: None *Physical Exam - Vital Signs Last Vital Signs Temp Pulse Resp BP Pulse Ox 98.3 F 100 H 18 158/74 98 10/24/18 18:57 10/24/18 18:57 10/24/18 18:57 10/24/18 18:57 10/24/18 18:57 Heart Score/ECG Review - ECG Intrepretation Rhythm: Regular Rhythm (19:12 nsr 90, qtc 442, no st or twave changes, no u waves) ED Treatment Course - LABORATORY CBC & Chemistry Diagram: 10/24/18 19:00 Medical Decision Making - Medical Decision Making 48-year-old male with history of IDDM, was sent for low potassium of 1.9. Patient has normal EKG, has no complaints, chemistry including magnesium will be sent and reassess. 20:[address] Aleman, potassium is 5.4, creatinine 1.9, EOM 35.6, magnesium 2.4. Rest of chemistries are normal, glucose is 201. Patient can be discharged home. *DC/Admit/Observation/Transfer Diagnosis at time of Disposition: Abnormal laboratory test - Discharge Dispostion Disposition: HOME Condition at time of disposition: Stable Decision to Admit order: No - Referrals Referrals: Pedro Luis Camejo [Primary Care Provider] - - Patient Instructions Additional Instructions: Follow your doctor's directions, make sure you drinking plenty of fluids, you should be drinking at least 2-3 L of water daily Return to the ER if fever or feeling sick - Post Discharge Activity
[2018-10-24 19:45] LABS: BLOOD UREA NITROGEN 35.6 mg/dL (7-18); CALCIUM 9.6 mg/dL (8.5-10.1); CREATININE 1.9 mg/dL (0.55-1.3); MAGNESIUM 2.4 mg/dL (1.8-2.4); POTASSIUM 5.4 mmol/L (3.5-5.1)
--- NOTE | 2018-10-25 12:49 | EKG ---
Test Reason : Blood Pressure : / mmHG Vent. Rate : 090 BPM Atrial Rate : 090 BPM P-R Int : 176 ms QRS Dur : 074 ms QT Int : 362 ms P-R-T Axes : 058 053 036 degrees QTc Int : 442 ms NORMAL SINUS RHYTHM CANNOT RULE OUT ANTERIOR INFARCT , AGE UNDETERMINED ABNORMAL ECG WHEN COMPARED WITH ECG OF 10/31/17 NO SIGNIFICANT CHANGE WAS FOUND Confirmed by IZZY SALGUERO MD ([id number]) on 10/25/2018 12:48:55 PM Referred By: Confirmed By:IZZY SALGUERO MD
== END 2018-10-24 20:28 | disposition home or self-care (01) ==
LOC: JERFT 18:46 → JER 18:46 → JERFT 20:28
DX: E87.6 Hypokalemia (principal); I10 Essential (primary) hypertension; E11.9 Type 2 diabetes mellitus without complications; Z79.4 Long term (current) use of insulin; E78.00 Pure hypercholesterolemia, unspecified; K59.00 Constipation, unspecified; Z87.09 Personal history of other diseases of the respiratory system; L08.9 Local infection of the skin and subcutaneous tissue, unspecified
CPT/HCPCS: 36415; 80048; 83735; 93005; 93010; 99281-25

== ENCOUNTER → 2018-10-29 | Day surgery (SDC) | payer OTHER | LOC: JRADIR 10:18 ==

== ENCOUNTER → 2018-11-27 | Day surgery (SDC) | payer OTHER | END | disposition home or self-care (01) | LOC: JRADIR 12:21 | PROVIDERS: ATTEND Obstetrics & Gynecology Gynecologic Oncology | PROC: 02PY03Z Removal of Infusion Device from Great Vessel, Open Approach (ICD-10-PCS; principal; 2018-11-27) | DX: Z45.2 Encounter for adjustment and management of vascular access device (principal) | CPT/HCPCS: 36589 ==

== ENCOUNTER 2022-01-20 13:35 | Inpatient (IN) | payer OTHER ==
[2022-01-20 13:43] VITALS: BMI 27.9
[2022-01-20 15:19] LABS: BASO % 0.3 % (0-2.0); EOS % 0.7 % (0-4.5); HEMOGLOBIN 11.8 GM/dL (11.7-16.9); LYMPH % 23.3 % (8-40); MCH 28.7 pg (25.7-33.7); MCHC 33.7 g/dl (32.0-35.9); MEAN CELL VOLUME 85.1 fl (80-96); MONO % 8.2 % (3.8-10.2); NEUT % 67.5 % (42.8-82.8); PLATELET COUNT 299 10^3/uL (134-434); RBC 4.12 M/mm3 (4.00-5.60); RDW 13.4 % (11.9-15.9); WHITE BLOOD COUNT 8.1 K/mm3 (4.0-10.0)
[2022-01-20 15:26] LABS: INR 0.93 (0.83-1.09); PROTHROMBIN TIME (PATIENT) 10.7 SEC (9.7-13.0)
[2022-01-20 15:40] LABS: ALBUMIN 3.7 g/dl (3.4-5.0); CALCIUM 9.4 mg/dL (8.5-10.1)
[2022-01-20 15:42] LABS: BLOOD UREA NITROGEN 50.1 mg/dL (7-18)
[2022-01-20 15:43] LABS: CREATININE 2.4 mg/dL (0.55-1.3)
[2022-01-20 15:46] LABS: BILIRUBIN,TOTAL 0.2 mg/dL (0.2-1); TOT PROT 7.5 g/dl (6.4-8.2)
[2022-01-20] MEDS ORDERED: SODIUM CHLORIDE 0.9% 500 ML INFUS.BAG IV ONE (15:47)
[2022-01-20] MEDS ORDERED: AMPICILLIN NA/SULBACTAM NA 3 GM in SODIUM CHLORIDE 100 ML IVPB ONE (15:57)
[2022-01-21] MEDS ORDERED: REMDESIVIR 200 MG in SODIUM CHLORIDE 250 ML IVPB ONE (02:10)
[2022-01-21] MEDS ORDERED: HEPARIN NA (PORCINE) 5,000 UNITS/ML 1ML VIAL ONE ×3 (05:43→22:25)
[2022-01-21] MEDS: HEPARIN NA (PORCINE) 5,000 UNITS/ML 1ML VIAL SQ SCH ×3 (05:45→22:29)
[2022-01-21] MEDS: INSULIN SLIDING SCALE (NOVOLOG) 1 VIAL SQ SCH ×3 (05:58→17:26)
[2022-01-21 07:11] LABS: HEMATOCRIT 33.8 % (35.4-49); HEMOGLOBIN 11.5 GM/dL (11.7-16.9); MCH 28.7 pg (25.7-33.7); MEAN CELL VOLUME 84.3 fl (80-96); MEAN PLT VOLUME 8.2 fl (7.5-11.1); PLATELET COUNT 275 10^3/uL (134-434); RBC 4.01 M/mm3 (4.00-5.60); RDW 13.6 % (11.9-15.9); WHITE BLOOD COUNT 6.7 K/mm3 (4.0-10.0)
[2022-01-21 07:33] LABS: BLOOD UREA NITROGEN 39.7 mg/dL (7-18); CALCIUM 8.8 mg/dL (8.5-10.1)
[2022-01-21 07:34] LABS: ALBUMIN 3.3 g/dl (3.4-5.0); MAGNESIUM 1.9 mg/dL (1.8-2.4)
[2022-01-21 07:36] LABS: PHOSPHOROUS 2.9 mg/dL (2.5-4.9)
[2022-01-21 07:38] LABS: BILIRUBIN,TOTAL 0.3 mg/dL (0.2-1); CREATININE 1.8 mg/dL (0.55-1.3); TOT PROT 6.8 g/dl (6.4-8.2)
[2022-01-21 07:41] LABS: ACTIVATED PTT 30.5 SECONDS (25.2-36.5)
[2022-01-21] MEDS: Insulin (LOG) Aspart 100 UNITS/ML VIAL SQ SCH ×3 (09:11→21:49)
[2022-01-21] MEDS ORDERED: LISINOPRIL 20 MG TABLET ONE (09:16)
[2022-01-21] MEDS ORDERED: SODIUM ZIRCONIUM CYCLOSILICATE (LOKELMA) 5 GM PACKET ONE (09:16)
[2022-01-21 09:23] LABS: INR 0.97 (0.83-1.09); PROTHROMBIN TIME (PATIENT) 11.1 SEC (9.7-13.0)
[2022-01-21] MEDS: INSULIN (LEVEMIR) 100 UNITS/ML UNITS SQ SCH (09:29)
[2022-01-21] MEDS: LISINOPRIL 20 MG TABLET PO SCH (09:30)
[2022-01-21] MEDS: SODIUM ZIRCONIUM CYCLOSILICATE (LOKELMA) 5 GM PACKET PO SCH (09:30)
[2022-01-21 13:42] VITALS: RESP 18
[2022-01-21] MEDS: AMPICILLIN NA/SULBACTAM NA 3 GM in SODIUM CHLORIDE 100 ML IVPB SCH (21:49)
[2022-01-21] MEDS ORDERED: ATORVASTATIN CA 10 MG TABLET (FP) PO SCH (22:00)
[2022-01-22] MEDS: INSULIN (LEVEMIR) 100 UNITS/ML UNITS SQ SCH ×2 (00:18→11:16)
[2022-01-22] MEDS: INSULIN SLIDING SCALE (NOVOLOG) 1 VIAL SQ SCH ×3 (00:18→13:26)
[2022-01-22] MEDS: AMPICILLIN NA/SULBACTAM NA 3 GM in SODIUM CHLORIDE 100 ML IVPB SCH ×3 (03:30→18:10)
[2022-01-22 05:32] VITALS: TEMP 97.4
[2022-01-22] MEDS: HEPARIN NA (PORCINE) 5,000 UNITS/ML 1ML VIAL SQ SCH ×2 (06:11→14:28)
[2022-01-22] MEDS: Insulin (LOG) Aspart 100 UNITS/ML VIAL SQ SCH ×3 (08:00→18:10)
[2022-01-22] MEDS ORDERED: REMDESIVIR 100 MG in SODIUM CHLORIDE 250 ML IVPB SCH (10:00)
[2022-01-22 10:22] LABS: BASO % 0.5 % (0-2.0); EOS % 1.3 % (0-4.5); HEMATOCRIT 34.4 % (35.4-49); HEMOGLOBIN 11.6 GM/dL (11.7-16.9); LYMPH % 33.3 % (8-40); MCH 28.5 pg (25.7-33.7); MCHC 33.7 g/dl (32.0-35.9); MEAN CELL VOLUME 84.5 fl (80-96); MEAN PLT VOLUME 7.9 fl (7.5-11.1); NEUT % 54.9 % (42.8-82.8); PLATELET COUNT 287 10^3/uL (134-434); RBC 4.08 M/mm3 (4.00-5.60); RDW 13.8 % (11.9-15.9); WHITE BLOOD COUNT 5.8 K/mm3 (4.0-10.0)
[2022-01-22] MEDS ORDERED: INSULIN (LEVEMIR) 100 UNITS/ML UNITS SQ ONE (10:36)
[2022-01-22] MEDS ORDERED: LISINOPRIL 20 MG TABLET ONE (10:36)
[2022-01-22] MEDS ORDERED: SODIUM ZIRCONIUM CYCLOSILICATE (LOKELMA) 5 GM PACKET ONE (10:36)
[2022-01-22 10:45] LABS: ALBUMIN 3.4 g/dl (3.4-5.0); BLOOD UREA NITROGEN 34.1 mg/dL (7-18); MAGNESIUM 2.1 mg/dL (1.8-2.4)
[2022-01-22 10:48] LABS: CREATININE 1.9 mg/dL (0.55-1.3)
[2022-01-22 10:49] LABS: PHOSPHOROUS 2.7 mg/dL (2.5-4.9)
[2022-01-22 10:50] LABS: BILIRUBIN,TOTAL 0.5 mg/dL (0.2-1); TOT PROT 6.9 g/dl (6.4-8.2)
[2022-01-22] MEDS: LISINOPRIL 20 MG TABLET PO SCH (11:17)
[2022-01-22] MEDS: SODIUM ZIRCONIUM CYCLOSILICATE (LOKELMA) 5 GM PACKET PO SCH (11:17)
[2022-01-22] MEDS ORDERED: LISINOPRIL 20 MG TABLET PO SCH (14:12)
[2022-01-22] MEDS ORDERED: LISINOPRIL 20 MG TABLET PO ONE (14:14)
[2022-01-22] MEDS ORDERED: HEPARIN NA (PORCINE) 5,000 UNITS/ML 1ML VIAL ONE (16:19)
[2022-01-22 18:22] VITALS: BP 170/88; PULSE 91
== END 2022-01-22 18:25 | disposition home or self-care (01) | DRG 682 ==
LOC: JER 13:35 → JERBED 16:00
PROVIDERS: ADMIT Internal Medicine; ATTEND Internal Medicine
PROC: XW033E5 Introduction of Remdesivir Anti-infective into Peripheral Vein, Percutaneous Approach, New Technology Group 5 (ICD-10-PCS; principal; 2022-01-21)
DX: N17.9 Acute kidney failure, unspecified (principal); U07.1 COVID-19; L03.115 Cellulitis of right lower limb; E11.628 Type 2 diabetes mellitus with other skin complications; E11.621 Type 2 diabetes mellitus with foot ulcer; L97.519 Non-pressure chronic ulcer of other part of right foot with unspecified severity; E87.5 Hyperkalemia; E11.65 Type 2 diabetes mellitus with hyperglycemia; I12.9 Hypertensive chronic kidney disease with stage 1 through stage 4 chronic kidney disease, or unspecified chronic kidney disease; E11.22 Type 2 diabetes mellitus with diabetic chronic kidney disease; N18.9 Chronic kidney disease, unspecified; E11.40 Type 2 diabetes mellitus with diabetic neuropathy, unspecified
CPT/HCPCS: 36415; 71045-TC-FY; 73630-TC-RT-FY; 73718-TC-RT; 76775-TC; 80053; 82570; 82728; 82962; 83036; 83615; 83735; 84100; 84156; 85025; 85027; 85379; 85610; 85651; 85730; 86140; 87040; 93005; 93010; 99285-25; C9399; C9803-CS; J1644; U0003; U0005

== ENCOUNTER 2022-02-12 15:14 | Inpatient (IN) | payer OTHER ==
[2022-02-12] MEDS ORDERED: CEFEPIME HCL/D5W 2 GM/50 ML BAG IVPB ONE (16:15)
[2022-02-12] MEDS ORDERED: VANCOMYCIN/WATER 2 GM/400 ML PREMIX BAG IVPB ONE (16:18)
[2022-02-12 16:40] LABS: BASO % 0.5 % (0-2.0); HEMATOCRIT 36.2 % (35.4-49); HEMOGLOBIN 11.7 GM/dL (11.7-16.9); LYMPH % 29.7 % (8-40); MCH 27.5 pg (25.7-33.7); MCHC 32.3 g/dl (32.0-35.9); MEAN CELL VOLUME 85.2 fl (80-96); MONO % 8.6 % (3.8-10.2); NEUT % 60.2 % (42.8-82.8); PLATELET COUNT 292 10^3/uL (134-434); RBC 4.25 M/mm3 (4.00-5.60); RDW 13.6 % (11.9-15.9); WHITE BLOOD COUNT 7.8 K/mm3 (4.0-10.0)
[2022-02-12] MEDS ORDERED: CEFEPIME 2 GM in DEXTROSE 5%-WATER 100 ML IVPB ONE (16:45)
[2022-02-12] MEDS ORDERED: VANCOMYCIN/WATER 2 GRAMS 2,000 MG/400 ML PIGGYBACK IVPB ONE (16:45)
[2022-02-12 16:57] LABS: CHLORIDE 108 mmol/L (98-107); SODIUM 141 mmol/L (136-145)
[2022-02-12 16:59] LABS: ANION GAP 8 MMOL/L (8-16); BLOOD UREA NITROGEN 37.2 mg/dL (7-18); CALCIUM 9.7 mg/dL (8.5-10.1); CO2 25 mmol/L (21-32); GLUCOSE,RANDOM 143 mg/dL (74-106)
[2022-02-12 17:02] LABS: CREATININE 1.9 mg/dL (0.55-1.3); SGOT/AST 19 U/L (15-37); SGPT/ALT 21 U/L (13-61)
[2022-02-12 17:04] LABS: BILIRUBIN,TOTAL 0.3 mg/dL (0.2-1); TOT PROT 7.5 g/dl (6.4-8.2)
[2022-02-12 17:05] LABS: ALK PHOS 92 U/L (45-117)
[2022-02-12 17:36] LABS: ERYTHROCYTE SEDIMENTATION RATE 23 mm/hr (0-20)
[2022-02-12] MEDS ORDERED: SODIUM CHLORIDE 0.9% 500 ML INFUS.BAG IV ONE (18:42)
[2022-02-12] MEDS ORDERED: LISINOPRIL 20 MG TABLET PO ONE (18:44)
[2022-02-12] MEDS ORDERED: LISINOPRIL 20 MG TABLET ONE (18:52)
[2022-02-12 23:13] VITALS: BMI 28.3
[2022-02-13] MEDS ORDERED: ACETAMINOPHEN 325 MG TABLET (FP) PO PRN (09:18)
[2022-02-13] MEDS: LISINOPRIL 20 MG TABLET PO SCH (09:56)
[2022-02-13] MEDS: ASPIRIN 81 MG CHEWABLE TABLETS PO SCH (09:56)
[2022-02-13] MEDS: ATORVASTATIN CA 10 MG TABLET (FP) PO SCH (09:56)
[2022-02-13] MEDS: INSULIN (LEVEMIR) 100 UNITS/ML UNITS SQ SCH ×2 (09:56→21:21)
[2022-02-13 09:58] LABS: HEMATOCRIT 33.8 % (35.4-49); HEMOGLOBIN 11.4 GM/dL (11.7-16.9); MCH 28.7 pg (25.7-33.7); MCHC 33.9 g/dl (32.0-35.9); MEAN CELL VOLUME 84.8 fl (80-96); PLATELET COUNT 251 10^3/uL (134-434); RBC 3.98 M/mm3 (4.00-5.60); RDW 13.6 % (11.9-15.9); WHITE BLOOD COUNT 5.8 K/mm3 (4.0-10.0)
[2022-02-13] MEDS ORDERED: CEFEPIME IVPB SCH ×2 (10:00)
[2022-02-13] MEDS ORDERED: VANCOMYCIN/WATER 1,250 MG/250 ML BAG IVPB SCH ×2 (10:00)
[2022-02-13] MEDS ORDERED: SODIUM CHLORIDE IVPB SCH ×2 (10:00)
[2022-02-13 10:33] LABS: ALBUMIN 3.5 g/dl (3.4-5.0); CALCIUM 9.3 mg/dL (8.5-10.1); MAGNESIUM 2.2 mg/dL (1.8-2.4)
[2022-02-13 10:35] LABS: PHOSPHOROUS 3.4 mg/dL (2.5-4.9)
[2022-02-13 10:36] LABS: CREATININE 1.7 mg/dL (0.55-1.3)
[2022-02-13 10:37] LABS: BILIRUBIN,TOTAL 0.4 mg/dL (0.2-1); TOT PROT 6.9 g/dl (6.4-8.2)
[2022-02-13] MEDS: INSULIN (NOVOLOG) ASPART 100 UNITS/ML 10ML VIAL SQ SCH ×2 (12:02→17:45)
[2022-02-13] MEDS: INSULIN SLIDING SCALE (NOVOLOG) 1 VIAL SQ SCH ×3 (12:02→21:21)
[2022-02-13] MEDS ORDERED: CEFTRIAXONE 2 GM in DEXTROSE 5%-WATER 50 ML IVPB SCH (13:15)
[2022-02-13] MEDS ORDERED: SODIUM ZIRCONIUM CYCLOSILICATE (LOKELMA) 5 GM PACKET PO SCH (14:30)
[2022-02-13] MEDS ORDERED: ELECTROLYTE-148 SOLN 1,000 ML IV SCH (14:45)
[2022-02-13] MEDS: HEPARIN NA (PORCINE) 5,000 UNITS/ML 1ML VIAL SQ SCH ×2 (15:28→21:20)
[2022-02-13] MEDS: CEFTRIAXONE 2 GM in DEXTROSE 5%-WATER 100 ML IVPB SCH (15:32)
[2022-02-14] MEDS: HEPARIN NA (PORCINE) 5,000 UNITS/ML 1ML VIAL SQ SCH ×3 (06:43→21:45)
[2022-02-14] MEDS: INSULIN SLIDING SCALE (NOVOLOG) 1 VIAL SQ SCH ×4 (06:46→21:49)
[2022-02-14] MEDS: INSULIN (NOVOLOG) ASPART 100 UNITS/ML 10ML VIAL SQ SCH ×3 (06:46→16:35)
[2022-02-14] MEDS: SODIUM ZIRCONIUM CYCLOSILICATE (LOKELMA) 5 GM PACKET PO SCH (09:32)
[2022-02-14] MEDS: INSULIN (LEVEMIR) 100 UNITS/ML UNITS SQ SCH ×2 (09:33→21:45)
[2022-02-14] MEDS: LISINOPRIL 20 MG TABLET PO SCH (09:33)
[2022-02-14] MEDS: ASPIRIN 81 MG CHEWABLE TABLETS PO SCH (09:33)
[2022-02-14] MEDS: ATORVASTATIN CA 10 MG TABLET (FP) PO SCH (09:33)
[2022-02-14] MEDS: CEFTRIAXONE 2 GM in DEXTROSE 5%-WATER 100 ML IVPB SCH (09:34)
[2022-02-15] MEDS: HEPARIN NA (PORCINE) 5,000 UNITS/ML 1ML VIAL SQ SCH ×2 (05:48→13:21)
[2022-02-15] MEDS: INSULIN (NOVOLOG) ASPART 100 UNITS/ML 10ML VIAL SQ SCH ×3 (06:04→15:56)
[2022-02-15] MEDS: INSULIN SLIDING SCALE (NOVOLOG) 1 VIAL SQ SCH ×4 (06:05→21:41)
[2022-02-15 08:53] LABS: HEMATOCRIT 34.8 % (35.4-49); HEMOGLOBIN 11.4 GM/dL (11.7-16.9); MCH 27.4 pg (25.7-33.7); MCHC 32.8 g/dl (32.0-35.9); MEAN CELL VOLUME 83.5 fl (80-96); MEAN PLT VOLUME 8.2 fl (7.5-11.1); PLATELET COUNT 252 10^3/uL (134-434); RBC 4.17 M/mm3 (4.00-5.60); RDW 13.2 % (11.9-15.9); WHITE BLOOD COUNT 5.2 K/mm3 (4.0-10.0)
[2022-02-15 09:18] LABS: ALBUMIN 3.5 g/dl (3.4-5.0)
[2022-02-15 09:20] LABS: CREATININE 1.9 mg/dL (0.55-1.3)
[2022-02-15 09:22] LABS: BILIRUBIN,TOTAL 0.6 mg/dL (0.2-1)
[2022-02-15] MEDS: SODIUM ZIRCONIUM CYCLOSILICATE (LOKELMA) 5 GM PACKET PO SCH ×2 (10:58→18:28)
[2022-02-15] MEDS: ASPIRIN 81 MG CHEWABLE TABLETS PO SCH (10:58)
[2022-02-15] MEDS: ATORVASTATIN CA 10 MG TABLET (FP) PO SCH (10:58)
[2022-02-15] MEDS: CEFTRIAXONE 2 GM in DEXTROSE 5%-WATER 100 ML IVPB SCH (10:58)
[2022-02-15] MEDS ORDERED: INSULIN (NOVOLOG) ASPART 100 UNITS/ML 10ML VIAL SQ ONE (11:19)
[2022-02-15] MEDS ORDERED: INSULIN REGULAR HUMAN 100 UNITS/ML *VIAL IVPUSH ONE ×2 (12:00→18:04)
[2022-02-15] MEDS ORDERED: DEXTROSE 50%-WATER 25 GM/50 ML DISP.SYRIN IVPUSH ONE ×2 (12:00→18:04)
[2022-02-15] MEDS: INSULIN (LEVEMIR) 100 UNITS/ML UNITS SQ SCH ×2 (12:21→21:40)
[2022-02-15] MEDS: POLYETHYLENE GLYCOL (HEALTHYLAX) 3350 17 GM PACKET PO SCH (13:20)
[2022-02-15 17:48] LABS: CALCIUM 9.2 mg/dL (8.5-10.1)
[2022-02-15 17:51] LABS: CREATININE 2.1 mg/dL (0.55-1.3)
[2022-02-15] MEDS ORDERED: DEXTROSE 50%-WATER 25 GM/50 ML DISP.SYRIN ONE (18:20)
[2022-02-16 02:05] LABS: BLOOD UREA NITROGEN 37.6 mg/dL (7-18); CALCIUM 9.1 mg/dL (8.5-10.1)
[2022-02-16 02:08] LABS: CREATININE 1.9 mg/dL (0.55-1.3)
[2022-02-16] MEDS: INSULIN (NOVOLOG) ASPART 100 UNITS/ML 10ML VIAL SQ SCH ×2 (06:20→12:01)
[2022-02-16] MEDS: INSULIN SLIDING SCALE (NOVOLOG) 1 VIAL SQ SCH ×2 (06:20→12:01)
[2022-02-16 09:21] LABS: HEMATOCRIT 35.2 % (35.4-49); MCH 28.8 pg (25.7-33.7); MCHC 34.2 g/dl (32.0-35.9); MEAN CELL VOLUME 84.2 fl (80-96); MEAN PLT VOLUME 8.1 fl (7.5-11.1); PLATELET COUNT 271 10^3/uL (134-434); RBC 4.18 M/mm3 (4.00-5.60); RDW 13.4 % (11.9-15.9)
[2022-02-16 09:48] LABS: ALBUMIN 3.8 g/dl (3.4-5.0)
[2022-02-16 09:51] LABS: BLOOD UREA NITROGEN 35.5 mg/dL (7-18)
[2022-02-16 09:55] LABS: CREATININE 1.9 mg/dL (0.55-1.3); TOT PROT 7.5 g/dl (6.4-8.2)
[2022-02-16 09:57] LABS: BILIRUBIN,TOTAL 0.3 mg/dL (0.2-1); CALCIUM 9.2 mg/dL (8.5-10.1)
[2022-02-16] MEDS: POLYETHYLENE GLYCOL (HEALTHYLAX) 3350 17 GM PACKET PO SCH (10:50)
[2022-02-16] MEDS: LISINOPRIL 20 MG TABLET PO SCH (10:50)
[2022-02-16] MEDS: ATORVASTATIN CA 10 MG TABLET (FP) PO SCH (10:50)
[2022-02-16] MEDS: ASPIRIN 81 MG CHEWABLE TABLETS PO SCH (10:50)
[2022-02-16] MEDS: INSULIN (LEVEMIR) 100 UNITS/ML UNITS SQ SCH (10:51)
[2022-02-16] MEDS: SODIUM ZIRCONIUM CYCLOSILICATE (LOKELMA) 5 GM PACKET PO SCH ×2 (12:02)
[2022-02-16] MEDS ORDERED: INSULIN SLIDING SCALE (NOVOLOG) 1 VIAL SQ SCH (12:35)
[2022-02-16 14:47] VITALS: BP 146/78; PULSE 83; RESP 18; TEMP 97.8
== END 2022-02-16 16:30 | disposition home or self-care (01) | DRG 638 ==
LOC: JER 15:14 → JERBED 17:39 → J7W 21:38
PROVIDERS: ADMIT Internal Medicine; ATTEND Internal Medicine
DX: E11.69 Type 2 diabetes mellitus with other specified complication (principal); L03.115 Cellulitis of right lower limb; M86.171 Other acute osteomyelitis, right ankle and foot; E87.5 Hyperkalemia; E78.5 Hyperlipidemia, unspecified; I12.9 Hypertensive chronic kidney disease with stage 1 through stage 4 chronic kidney disease, or unspecified chronic kidney disease; N18.9 Chronic kidney disease, unspecified; E11.621 Type 2 diabetes mellitus with foot ulcer; L97.519 Non-pressure chronic ulcer of other part of right foot with unspecified severity; E11.65 Type 2 diabetes mellitus with hyperglycemia; E11.319 Type 2 diabetes mellitus with unspecified diabetic retinopathy without macular edema; E11.40 Type 2 diabetes mellitus with diabetic neuropathy, unspecified
CPT/HCPCS: 36415; 73630-TC-RT-FY; 73718-TC-RT; 80048; 80053; 82962; 83735; 84100; 85025; 85027; 85651; 86140; 87040; 87070; 87186; 87205; 93005; 93010; 93926-TC; 99285-25; C9803-CS; J1644; U0003; U0005

== ENCOUNTER 2022-02-19 08:48 | Observation (INO) | payer OTHER ==
[2022-02-19 09:29] VITALS: BMI 28.2
[2022-02-19] MEDS ORDERED: ACETAMINOPHEN 325 MG TABLET (FP) PO ONE (10:50)
[2022-02-19] MEDS ORDERED: amLODIPine BESYLATE 10 MG TABLET (FP) PO ONE (10:50)
[2022-02-19] MEDS ORDERED: amLODIPine BESYLATE 10 MG TABLET (FP) ONE (11:12)
[2022-02-19] MEDS ORDERED: ACETAMINOPHEN 325 MG TABLET (FP) ONE (11:13)
[2022-02-19 11:40] LABS: BASO % 0.6 % (0-2.0); EOS % 0.9 % (0-4.5); HEMATOCRIT 35.4 % (35.4-49); HEMOGLOBIN 11.7 GM/dL (11.7-16.9); LYMPH % 27.3 % (8-40); MCH 27.7 pg (25.7-33.7); MEAN CELL VOLUME 84.1 fl (80-96); MEAN PLT VOLUME 8.4 fl (7.5-11.1); MONO % 8.3 % (3.8-10.2); NEUT % 62.9 % (42.8-82.8); PLATELET COUNT 307 10^3/uL (134-434); RBC 4.21 M/mm3 (4.00-5.60); RDW 13.6 % (11.9-15.9)
[2022-02-19 11:46] LABS: INR 0.91 (0.83-1.09); PROTHROMBIN TIME (PATIENT) 10.4 SEC (9.7-13.0)
[2022-02-19 11:48] LABS: ACTIVATED PTT 32.6 SECONDS (25.2-36.5)
[2022-02-19 12:07] LABS: ALBUMIN 4.2 g/dl (3.4-5.0); BLOOD UREA NITROGEN 48.6 mg/dL (7-18); CALCIUM 9.9 mg/dL (8.5-10.1)
[2022-02-19 12:10] LABS: CREATININE 2.1 mg/dL (0.55-1.3)
[2022-02-19 12:12] LABS: BILIRUBIN,TOTAL 0.2 mg/dL (0.2-1); TOT PROT 7.8 g/dl (6.4-8.2)
[2022-02-19] MEDS ORDERED: ACETAMINOPHEN 325 MG TABLET (FP) PO PRN (12:42)
[2022-02-19] MEDS ORDERED: ENOXAPARIN NA (PORCINE) 30 MG/0.3 ML DISP.SYRIN SQ ONE (12:46)
[2022-02-19] MEDS: METOPROLOL TARTRATE 25 MG TABLET (FP) PO SCH ×2 (17:00→22:17)
[2022-02-19] MEDS: INSULIN SLIDING SCALE (NOVOLOG) 1 VIAL SQ SCH ×2 (17:48→22:17)
[2022-02-19] MEDS ORDERED: INSULIN (LEVEMIR) 100 UNITS/ML UNITS SQ SCH (22:00)
[2022-02-20] MEDS ORDERED: DEXTROSE 50%-WATER - 25 GM/50 ML VIAL IVPUSH ONE (06:57)
[2022-02-20] MEDS ORDERED: DEXTROSE 5%-NORMAL SALINE 1,000 ML IV SCH ×2 (07:00→09:02)
[2022-02-20] MEDS: INSULIN SLIDING SCALE (NOVOLOG) 1 VIAL SQ SCH ×4 (07:06→21:44)
[2022-02-20] MEDS ORDERED: BUPIVACAINE HCL/PF 0.5% (5MG/ML) 10 ML VIAL ONE (07:21)
[2022-02-20] MEDS ORDERED: GENTAMICIN SO4 80 MG/2 ML VIAL ONE (07:21)
[2022-02-20] MEDS ORDERED: LIDOCAINE HCL 1%, 10 MG/ML (20ML VIAL) ONE (07:21)
[2022-02-20] MEDS ORDERED: MIDAZOLAM HCL 2 MG/2 ML SINGLE DOSE VIAL ONE (07:42)
[2022-02-20] MEDS ORDERED: DEXTROSE 50%-WATER 25 GM/50 ML DISP.SYRIN IVPUSH ONE ×2 (07:45→09:02)
[2022-02-20] MEDS ORDERED: LIDOCAINE HCL 1%, 10 MG/ML (20ML VIAL) NR ONE (07:55)
[2022-02-20] MEDS ORDERED: PROPOFOL 20 ML ONE (07:58)
[2022-02-20] MEDS ORDERED: ONDANSETRON 4 MG/2 ML VIAL IVPUSH PRN ×2 (08:42→09:02)
[2022-02-20] MEDS ORDERED: ACETAMINOPHEN 325 MG TABLET (FP) PO PRN (09:02)
[2022-02-20] MEDS ORDERED: amLODIPine BESYLATE 10 MG TABLET (FP) PO SCH (10:00)
[2022-02-20] MEDS ORDERED: ATORVASTATIN CA 10 MG TABLET (FP) PO SCH (10:00)
[2022-02-20] MEDS ORDERED: LISINOPRIL 20 MG TABLET PO SCH (10:00)
[2022-02-20] MEDS: METOPROLOL TARTRATE 25 MG TABLET (FP) PO SCH ×2 (10:47→21:43)
[2022-02-20] MEDS: amLODIPine BESYLATE 10 MG TABLET (FP) PO SCH (10:47)
[2022-02-20] MEDS: ATORVASTATIN CA 10 MG TABLET (FP) PO SCH (10:47)
[2022-02-20 10:57] LABS: BASO % 0.6 % (0-2.0); EOS % 0.6 % (0-4.5); HEMATOCRIT 35.6 % (35.4-49); HEMOGLOBIN 11.6 GM/dL (11.7-16.9); LYMPH % 31.6 % (8-40); MCH 27.8 pg (25.7-33.7); MCHC 32.5 g/dl (32.0-35.9); MEAN CELL VOLUME 85.5 fl (80-96); MEAN PLT VOLUME 8.2 fl (7.5-11.1); MONO % 7.2 % (3.8-10.2); PLATELET COUNT 306 10^3/uL (134-434); RBC 4.16 M/mm3 (4.00-5.60); RDW 13.5 % (11.9-15.9); WHITE BLOOD COUNT 7.6 K/mm3 (4.0-10.0)
[2022-02-20 11:37] LABS: BLOOD UREA NITROGEN 47.9 mg/dL (7-18)
[2022-02-20 11:38] LABS: CALCIUM 9.1 mg/dL (8.5-10.1)
[2022-02-20 11:39] LABS: ALBUMIN 3.8 g/dl (3.4-5.0)
[2022-02-20 11:42] LABS: BILIRUBIN,TOTAL 0.2 mg/dL (0.2-1); CREATININE 1.9 mg/dL (0.55-1.3); TOT PROT 7.3 g/dl (6.4-8.2)
[2022-02-20] MEDS: CEFTRIAXONE 2 GM in DEXTROSE 5%-WATER 100 ML IVPB SCH (14:16)
[2022-02-20] MEDS ORDERED: SODIUM ZIRCONIUM CYCLOSILICATE (LOKELMA) 5 GM PACKET PO ONE ×2 (17:50→22:00)
[2022-02-20] MEDS: INSULIN (LEVEMIR) 100 UNITS/ML UNITS SQ SCH (21:45)
[2022-02-21] MEDS: INSULIN SLIDING SCALE (NOVOLOG) 1 VIAL SQ SCH ×4 (06:10→21:27)
[2022-02-21] MEDS: METOPROLOL TARTRATE 25 MG TABLET (FP) PO SCH ×2 (09:39→21:27)
[2022-02-21] MEDS: ATORVASTATIN CA 10 MG TABLET (FP) PO SCH (09:39)
[2022-02-21] MEDS: amLODIPine BESYLATE 10 MG TABLET (FP) PO SCH (09:39)
[2022-02-21] MEDS: ASPIRIN 81 MG CHEWABLE TABLETS PO SCH (09:40)
[2022-02-21] MEDS: CEFTRIAXONE 2 GM in DEXTROSE 5%-WATER 100 ML IVPB SCH (09:40)
[2022-02-21] MEDS ORDERED: SODIUM ZIRCONIUM CYCLOSILICATE (LOKELMA) 5 GM PACKET PO SCH ×2 (10:00→11:23)
[2022-02-21] MEDS ORDERED: ASPIRIN 81 MG CHEWABLE TABLETS PO SCH (10:00)
[2022-02-21 10:01] LABS: HEMATOCRIT 35.6 % (35.4-49); HEMOGLOBIN 11.6 GM/dL (11.7-16.9); MCH 27.7 pg (25.7-33.7); MCHC 32.5 g/dl (32.0-35.9); MEAN CELL VOLUME 85.4 fl (80-96); MEAN PLT VOLUME 8.3 fl (7.5-11.1); PLATELET COUNT 315 10^3/uL (134-434); RBC 4.17 M/mm3 (4.00-5.60); RDW 13.7 % (11.9-15.9); WHITE BLOOD COUNT 7.1 K/mm3 (4.0-10.0)
[2022-02-21 10:21] LABS: CHLORIDE 112 mmol/L (98-107); SODIUM 142 mmol/L (136-145)
[2022-02-21 10:26] LABS: CALCIUM 8.9 mg/dL (8.5-10.1)
[2022-02-21 10:27] LABS: ALBUMIN 3.7 g/dl (3.4-5.0); ANION GAP 4 MMOL/L (8-16); BLOOD UREA NITROGEN 43.2 mg/dL (7-18); CO2 26 mmol/L (21-32); GLUCOSE,RANDOM 92 mg/dL (74-106)
[2022-02-21 10:30] LABS: CREATININE 1.9 mg/dL (0.55-1.3); SGOT/AST 26 U/L (15-37)
[2022-02-21 10:31] LABS: BILIRUBIN,TOTAL 0.3 mg/dL (0.2-1); TOT PROT 7.3 g/dl (6.4-8.2)
[2022-02-21 10:33] LABS: ALK PHOS 92 U/L (45-117)
[2022-02-21 10:36] LABS: SGPT/ALT 66 U/L (13-61)
[2022-02-21 11:29] LABS: ANISOCYTOSIS 0; ERYTHROCYTE SEDIMENTATION RATE 23 mm/hr (0-20); HELMET CELLS 0; HOWELL-JOLLY BODIES 0; MACROCYTOSIS 0; OVALOCYTE 0; ROULEAU 0; SICKELED CELLS 0; TARGET CELLS 0; TEAR DROP CELLS 0; TOXIC GRANULATION 0
[2022-02-21] MEDS: INSULIN (LEVEMIR) 100 UNITS/ML UNITS SQ SCH (21:26)
[2022-02-21 22:13] VITALS: RESP 20
[2022-02-22 04:04] VITALS: PULSE 78
[2022-02-22] MEDS: INSULIN SLIDING SCALE (NOVOLOG) 1 VIAL SQ SCH ×2 (06:37→12:27)
[2022-02-22 07:34] VITALS: BP 145/83; TEMP 98.1
[2022-02-22 09:36] LABS: BASO % 0.7 % (0-2.0); EOS % 1.6 % (0-4.5); HEMATOCRIT 35.2 % (35.4-49); HEMOGLOBIN 11.6 GM/dL (11.7-16.9); LYMPH % 33.9 % (8-40); MCHC 32.9 g/dl (32.0-35.9); MEAN PLT VOLUME 8.5 fl (7.5-11.1); MONO % 10.4 % (3.8-10.2); NEUT % 53.4 % (42.8-82.8); PLATELET COUNT 312 10^3/uL (134-434); RBC 4.14 M/mm3 (4.00-5.60); RDW 13.2 % (11.9-15.9); WHITE BLOOD COUNT 6.2 K/mm3 (4.0-10.0)
[2022-02-22] MEDS: ATORVASTATIN CA 10 MG TABLET (FP) PO SCH (09:37)
[2022-02-22] MEDS: ASPIRIN 81 MG CHEWABLE TABLETS PO SCH (09:37)
[2022-02-22] MEDS: METOPROLOL TARTRATE 25 MG TABLET (FP) PO SCH (09:38)
[2022-02-22] MEDS: amLODIPine BESYLATE 10 MG TABLET (FP) PO SCH (09:38)
[2022-02-22] MEDS: CEFTRIAXONE 2 GM in DEXTROSE 5%-WATER 100 ML IVPB SCH (09:39)
[2022-02-22] MEDS ORDERED: SODIUM ZIRCONIUM CYCLOSILICATE (LOKELMA) 5 GM PACKET PO SCH (10:00)
[2022-02-22 10:08] LABS: CALCIUM 9.3 mg/dL (8.5-10.1)
[2022-02-22 10:09] LABS: BLOOD UREA NITROGEN 38.3 mg/dL (7-18); MAGNESIUM 2.3 mg/dL (1.8-2.4)
[2022-02-22 10:11] LABS: ALBUMIN 3.8 g/dl (3.4-5.0)
[2022-02-22 10:12] LABS: CREATININE 1.9 mg/dL (0.55-1.3); PHOSPHOROUS 3.7 mg/dL (2.5-4.9)
[2022-02-22 10:13] LABS: BILIRUBIN,TOTAL 0.4 mg/dL (0.2-1); TOT PROT 7.3 g/dl (6.4-8.2)
== END 2022-02-22 16:44 | disposition home or self-care (01) ==
LOC: JER 08:48 → JERBED 10:09 → INTOOBSV 10:09 → UNDOADMOB 10:09 → JERBED 14:44 → J8W 14:44
PROVIDERS: ADMIT Internal Medicine; ATTEND Internal Medicine
PROC: 02HV33Z Insertion of Infusion Device into Superior Vena Cava, Percutaneous Approach (ICD-10-PCS; principal; 2022-02-19)
PROC: B548ZZA Ultrasonography of Superior Vena Cava, Guidance (ICD-10-PCS; 2022-02-19)
PROC: 3E03329 Introduction of Other Anti-infective into Peripheral Vein, Percutaneous Approach (ICD-10-PCS; 2022-02-19)
PROC: 3E033GC Introduction of Other Therapeutic Substance into Peripheral Vein, Percutaneous Approach (ICD-10-PCS; 2022-02-19)
PROC: 3E013VG Introduction of Insulin into Subcutaneous Tissue, Percutaneous Approach (ICD-10-PCS; 2022-02-19)
DX: E11.22 Type 2 diabetes mellitus with diabetic chronic kidney disease (principal); I12.9 Hypertensive chronic kidney disease with stage 1 through stage 4 chronic kidney disease, or unspecified chronic kidney disease; N17.9 Acute kidney failure, unspecified; M86.9 Osteomyelitis, unspecified; E11.628 Type 2 diabetes mellitus with other skin complications; E11.65 Type 2 diabetes mellitus with hyperglycemia; L08.9 Local infection of the skin and subcutaneous tissue, unspecified; T14.8XXA Other injury of unspecified body region, initial encounter; Y84.8 Other medical procedures as the cause of abnormal reaction of the patient, or of later complication, without mention of misadventure at the time of the procedure
CPT/HCPCS: 36415; 36569; 73630-TC-RT-FY; 80053; 82962; 83735; 84100; 85025; 85027; 85610; 85651; 85730; 86140; 86850; 86900; 86901; 87070; 87075; 87205; 93005; 93010; 94760; 99285-25; C9803-CS; G0378; U0003; U0005